=== PATIENT | female | born 1940 | race Caucasian/White ===

== ENCOUNTER 2023-04-06 05:52 | Inpatient (IN) | payer MEDICARE, OTHER, SELFPAY ==
[2023-04-05 21:42] VITALS: BP 150/83; BMI 23.5
[2023-04-05 22:02] LABS: % Basophils 0.1 % (0-2); % Immature Granulocytes 1.2 % (0-0.5); % Lymphocytes 4.4 % (20.5-51.1); % Neutrophils 91.3 % (42.2-75.2); Absolute Immature Granulocytes 0.2 10^3/uL (0-0.05); Absolute Lymphocytes 0.8 10^3/uL (1.2-3.4); Absolute Monocytes 0.5 10^3/uL (0.1-0.6); Hematocrit 34.6 % (37.0-47.0); Hemoglobin 11.8 g/dL (12.0-16.0); Mean Corp Hgb Conc. 34.1 g/dL (33.0-37.0); Mean Corpuscular Hgb 32.5 pg (27.0-31.0); Mean Corpuscular Volume 95.3 fL (81.0-99.0); Mean Platelet Volume 10.8 fL (7.4-10.4); Nucleated Red Blood Cells % 0 %; Platelet Count 249 10^3/uL (130-400); Red Blood Cell Count 3.63 10^6/uL (4.20-5.40); Red Cell Dist. Width 16.5 % (11.5-14.5); White Blood Cell Count 17.6 10^3/uL (4.8-10.8)
[2023-04-05 22:27] LABS: Blood Urea Nitrogen 81 mg/dl (7-17); Calcium 9.3 mg/dl (8.4-10.2); Carbon Dioxide 39 mmol/L (22-30); Chloride 84 mmol/L (98-107); Estimated Creatinine Clearance 17 ml/min; Glucose 234 mg/dl (70-99); Sodium 131 mmol/L (135-145); eGFR 27.27
--- NOTE | 2023-04-05 23:58 | ED.GENMED ---
History of Present Illness
General
Chief Complaint: Chest Pain
Source: patient and family
Time Seen by Provider: 04/05/23 23:19
Travel History
Have you had any contact with someone who has COVID-19?: No
Do you have any symptoms of coronavirus? Fever > 100 degrees, chills, cough, shortness of breath, sore throat, loss of taste or smell, muscle aches, or headache?: No
History of Present Illness
History of Present Illness:
This patient is an 83-year-old female who celebrated her birthday yesterday, says it was a busy day and was with a lot of friends and family. She woke up this morning feeling more tired than usual and just generally weak without focal findings.
Then, while with her daughter at around 7 PM she developed a 'pressure' in the center of her chest without radiation. It was not pleuritic in nature. It was severe for a few seconds and then gradually diminished over 5 to 10 minutes. She got
several more episodes of the same discomfort. At 1 point she was given nitroglycerin which helped ease the discomfort. In between episodes she is pain-free. She most recently got an episode of this short-lived chest discomfort just a few minutes
ago. She also notes mild anorexia today without nausea, vomiting, new abdominal pain, fever, chills, cough, sore throat, rhinorrhea. Patient is O2 dependent but she feels like she has been more dyspneic today than usual.
Past History
Past History
ED Past Medical History: Arrthythmia (Fibrillation), CAD, Fibromyalgia, GERD, HTN, Hypercholesterolemia, Psychiatric (Depression, Panic disorder) and Other (History of back pain, migraines, diverticulitis, irritable bowel, loss of urination control,
arthritis, osteoporosis, impaired vision, rosacea, shingles, cataracts, Hiatel hernia)
ED Past Surgical History: Appendectomy (Questionable as patient unsure), Cardiac (Recent coronary stent X5), Gynecological (D&C, hysterectomy), Tonsilectomy and Other (Hernia repair)
Social History
Tobacco: Non-smoker
Alcohol: None
Drug: None
Personal:
Living: alone
Employment: Retired
Family History
Family History: CAD
Phy Exam
Physical Exam
Physical Exam:
GENERAL: Alert , in no apparent distress
EYE: pupils equal and reactive
NECK: Supple, no significant adenopathy.
ENT: o/p clr, mm slightly dry, questionable oral thrush noted.
CARDIAC: Irregularly irregular
LUNGS: Equal breath sounds bilaterally, no acute respiratory distress, no rales/rhonchi, very slight wheezing noted
ABDOMEN: Soft, nonspecific diffuse mild tenderness, no r/g, no cvat
NEUROLOGICAL: Alert and oriented, no focal neuro deficits
SKIN: Warm and dry, skin intact. There is scattered aged bruising noted on back area without assoc sts or ttp
MUSCULOSKELETAL: No edema, well perfused.
PSYCH: Normal and appropriate interaction.
Scores
Heart Score for Chest Pain Patients
STEMI patient?: Not applicable
Course
Orders/Labs/Results
Orders:
Orders
04/05/23 21:41
Electrocardiogram (*1) Urgent
Reason for Study: Chest Pain
EKG- Treatment ONCE
04/05/23 21:56
Basic Metabolic Panel Urgent
Complete Blood Count/With Diff Urgent
04/05/23 23:57
UA Reflex to Culture [Urinalysis Reflex To Culture] Stat
Date Specimen was Collected: 04/06/23
Time Specimen was Collected: 00:19
04/05/23 23:59
BNP [NT-proBNP] Stat
Iohexol [Omnipaque] See Protocol PO NOW STA
04/06/23 00:01
CR Chest - 2 Views Stat
Reason For Exam: sob
04/06/23 00:26
Urine Microscopic Reflex Cult Stat
Urine Culture Stat
THI Source: U
Specimen Description:
Date Specimen was Collected: 04/06/23
Time Specimen was Collected: 00:19
04/06/23 00:49
CT Abd/pel Without Iv Or Oral Stat
Comment:
Reason For Exam: abd pain
04/06/23 01:59
CT Chest W/o Iv Contrast Urgent
Comment:
Reason For Exam: chest pain
04/06/23 02:00
0.9% Sodium Chloride 500 ml [Nss] 500 ml IV 80 mls/hr
04/06/23 05:06
Admit/Transfer Patient As Directed
Co-Sign Provider:
Level of Care: Inpatient admission
Assign to:: IMU- Intermediate Care
Physician / Group: Donald
Diagnosis: Pneumomediastinum
Reason for Hospitalization: Pneumomediastinum
Expected length of stay greater than two midnights?: Yes
ELOS- Estimated Length of Stay in days: 2
I certify the patient meets the requirements for IP care: Yes
04/06/23 05:09
Code Status As Directed
Resuscitation Status: Full Code
04/06/23 06:17
Acetaminophen [Tylenol] 650 mg PO Q6HPRN PRN
Albuterol Nebs [Ventolin Nebules] 2.5 mg INH R Q4HPRN PRN
Dextrose 50%-Water [Dextrose 50% Syringe] 12.5 grams IV [id number] PRN
Glucagon [GlucaGen] 1 mg IM PRN PRN
Nitroglycerin Sublingual [Nitrostat (Sublingual)] 0.4 mg SL [id number] PRN
Ondansetron Injectable [Zofran] 4 mg IV Q6HPRN PRN
04/06/23 06:17
Cardiothoracic Surgery Consult Routine
Consulting Provider: Christofer Cabrera
Was physician already notified: No
Reason for Consult: Pneumomediastinum
Consult Notification Routine
Specialty to Notify: Cardiothoracic Surgery
Date consulting provider notified: 04/06/23
Time consulting provider notified: 07:21
Notified:: Provider
Consult Notification Routine
Specialty to Notify: Pulmonary
Date consulting provider notified: 04/06/23
Time consulting provider notified: 07:21
Notified:: Provider
PULMONARY CONSULT Routine
Consulting Provider: Aureliano Beltran
Was physician already notified: No
Reason for consult: Pneumomediastinum
Activity As Directed
Activity Level: Ambulate
With Assistance
Bedside Glucose Monitoring As Directed
Frequency: AC&HS
Comment: Change to q6h if pt on TPN, tube feeding or not eating
EKG with chest pain [ECG as needed] As Directed
ECG as needed for:: Chest Pain
I/O [Intake/ Output] As Directed
Frequency: Per unit guidelines
Pneumatic Compression Sleeves As Directed
Type: Knee high
Vital Signs As Directed
Frequency: Per unit guidelines
Weight As Directed
Frequency: Daily
Oxygen Therapy [O2 Therapy] [RESP] Routine
Titrate/Wean O2 to maintain O2 sat greater than (%): 94
Ot Eval And Treat Routine
PT Consult [Pt Eval And Treat] Routine
Activity Level: Ambulate
With Assistance
DX Deep Vein Thrombosis Video Routine
04/06/23 06:36
Troponin I Q6H
04/06/23 07:30
Insulin Aspart Corrective Low [Novolog Flexpen-Low Resistance] See Protocol SC AC
04/06/23 08:00
Aspirin Chewable [Low Strength Aspirin] 81 mg PO DAILY
Metoprolol Xl [Toprol Xl] 25 mg PO DAILY
Midodrine [ProAmatine] 5 mg PO Q8
Pantoprazole [Protonix IV] 40 mg IV DAILY
Prednisone [Deltasone] 40 mg PO DAILY
04/06/23 12:17
Troponin I Q6H
04/06/23 18:17
Troponin I Q6H
04/07/23 06:00
EKG [Electrocardiogram (*1)] IN AM
Reason for Study: Chest Pain
NPO
Allow oral meds: Yes
Allow clear liquids: Sips of Clears
Basic Metabolic Panel IN AM
Complete Blood Count/No Diff IN AM
Abnormal Lab Results
04/05/23 04/06/23
21:56 00:26
WBC 17.6 H 10^3/uL
(4.8-10.8)
RBC 3.63 L 10^6/uL
(4.20-5.40)
Hgb 11.8 L g/dL
(12.0-16.0)
Hct 34.6 L %
(37.0-47.0)
MCH 32.5 H pg
(27.0-31.0)
RDW 16.5 H %
(11.5-14.5)
MPV 10.8 H fL
(7.4-10.4)
Abs Immat Gran (auto) 0.2 H 10^3/uL
(0-0.05)
Absolute Neuts (auto) 16.0 H 10^3/uL
(1.4-6.5)
Absolute Lymphs (auto) 0.8 L 10^3/uL
(1.2-3.4)
Immature Gran % 1.2 H %
(0-0.5)
Neutrophils % 91.3 H %
(42.2-75.2)
Lymphocytes % 4.4 L %
(20.5-51.1)
Sodium 131 L mmol/L
(135-145)
Chloride 84 L mmol/L
(98-107)
Carbon Dioxide 39 H mmol/L
(22-30)
BUN 81 H mg/dl
(7-17)
Creatinine 1.8 H mg/dL
(0.6-1.0)
Glucose 234 H mg/dl
(70-99)
Leukocyte Esterase Rfl 1+ A
(Negative)
Urine WBC (Reflex) >100 A /HPF
(0-5)
Urine Bacteria (Reflex) Many A
(Negative)
04/05/23 21:56
04/05/23 21:56
Vital Signs
Initial and Last Documented VS:
Initial Vital Signs
Pulse Resp BP Pulse Ox
100 22 150/83 100
04/05/23 21:42 04/05/23 21:42 04/05/23 21:42 04/05/23 21:42
Last Documented Vital Signs
Temp Pulse Resp BP Pulse Ox
97.9 F 75 15 112/54 100
04/06/23 07:25 04/06/23 09:04 04/06/23 08:27 04/06/23 09:04 04/06/23 08:27
*Critical Care Note
Total Time (30-74mins, 75-104mins- exclusive of procedures): Not Applicable
Update Note
Update Note:
Patient presents to the Emergency Department with chest pain
Number and Complexity of Problems Addressed at the Encounter
� Chronic conditions affecting care:
� Acute Exacerbation and/or Progression of Chronic Illness:
� Differential Diagnosis includes: But not limited to ACS, pneumonia, heart failure, etc.
Amount and/or Complexity of Data to be Reviewed and Analyzed
� I performed an independent evaluation of and my interpretation is:
EKG: Read by me, A-fib with RVR, no acute ischemia noted
CT:
Xrays:
Laboratory Studies: White blood cell count elevation noted, relatively unchanged from her hospitalization just a few days ago suspect related to steroid. Relatively stable hyponatremia however new onset renal insufficiency with
a creatinine of 1.8 and GFR of 27, may represent prerenal azotemia given patient's history of anorexia today and as per daughter poor p.o. intake overall 4 weeks. Hemoglobin stable
Other:
� Review of other/old records reveals: Patient most recently hospitalized for respiratory distress requiring intubation
� Clinical information was obtained by an independent historian: Daughter who is at bedside
� Prescriptions/Medications Considered but not given:
� Further testing considered but not performed:
Risk of Complications and/or Morbidity or Mortality of Patient Management
� Social determinants of health affecting care:
� Discussion with other providers (PCP, Hospitalists, Consultants, etc):
� Escalation of care including admission/observation vs risk of discharge considered:108AM Ct pending, will start gentle IVF suspecting dehydration but balancing with hx of hf
159am verbal report, [facility] rads...nad in abd however pneumomediastinum noted, recommend chest ct to further evaluate.
Chest CT c/w pnuemomediast, no ptx, tr R pleural effusion, no concern for esophageal rupture (and no hx of v recently), likley all related to barotrauma (which is likley given recent intubation). Lungs overall look improved from prior CT.
Pt resp status stable, will admit for continued care.
ED Attending Note
-
Portions of this chart may have been created with voice recognition software.� Occasional wrong word or��sound alike� substitutions may have occurred due to the inherent limitations of voice recognition software.
Discharge Plan
Departure
Patient Disposition: Admit
Date of Disposition: 04/06/23
Time of Disposition: 03:00
Admit to: Telemetry
Admit to doctor: donald
Presentation/result/management discussed w/ accepting MD/DO: Hospitalist
Condition: Fair
Discharge Problem:
Acute renal insufficiency, PNEUMOMEDIASTINUM
Interventions
Interventions:
*Risk Screen - Suicide Last Done: 04/05/23 21:44
*Neglect/Abuse Screening Last Done: 04/05/23 21:44
*ED COVID-19 Vaccine History Last Done: 04/05/23 21:44
*Nursing Disposition Last Done: 04/06/23 06:19
ED- Cardiac Assessment Last Done: 04/05/23 22:31
Discharge Date and Time
Discharge Date/Time: 04/06/23 06:19
[2023-04-06] VITALS (17 sets, daily range): BP systolic 106–138; BP diastolic 53–102; BMI 23.2
[2023-04-06 00:37] LABS: Urine Albumin Trace (Neg - Trace); Urine Bilirubin Negative (Negative); Urine Character Clear (Clear); Urine Color Yellow; Urine Glucose Negative (Negative); Urine Ketone Negative (Negative); Urine Leukocyte 1+ (Negative); Urine Nitrite Negative (Negative); Urine Occult Blood Negative (Negative); Urine Specific Gravity 1.015 (<1.030); Urine Urobilinogen Negative (Neg - 1+)
[2023-04-06 01:00] LABS: Urine Amorphous Seen; Urine Squamous Cell >30 /LPF (Few); Urine Urothelial Cell >30 /LPF (FEW)
[2023-04-06 01:01] LABS: Urine Bacteria Many (Negative); Urine Red Blood Cell 0-2 /HPF (0-2); Urine White Cell >100 /HPF (0-5)
[2023-04-06 01:02] LABS: Urine Hyaline Cast >15 /LPF (0-2)
[2023-04-06] MEDS: NSS 500 IV (01:18)
[2023-04-06 01:42] LABS: NT-proBNP 5900 pg/ml
--- NOTE | 2023-04-06 05:13 | HPS.HSE ---
Family Physician
-
Family Physician: Sky Hackett
Chief Complaint
-
Chest pain
History of Present Illness
Patient is an 83y F with PMH significant for A-Fib, ASCVD, ILD and recent hospitalization for respiratory failure including VDRF who presents to ED complaining of chest pain. Patient was admitted at from 02/27 - 03/30 for respiratory failure.
She was intubated from 03/05 - 03/11. Patient was ultimately discharged to SNF on oxygen via NC at 2 lpm. Patient states that she has been doing fairly well in her recovery. Two days ago, she had some brief substernal chest pain that improved with
SL NTG.
This evening, she again developed substernal chest pain / pressure. It was much more severe this evening and did not improve with NTG. Patient reports inability to take a deep breath. She denies any fevers / chills. No palpitations.
Patient presented to the ED for evaluation. Work-up here in the ED shows significant amount of pneumomediastinum / pneumoperitoneum.
Patient denies any recent / significant cough paroxysms, etc. She was started on Tamiflu at the rehab, but this is a prophylactic dose due to other patient's having influenza. Patient herself has not tested positive for influenza and does not have
significant cough, fevers / chills, myalgias, etc.
Medical History
Past Medical History
Past Medical History: Reports Other
Additional Past Medical History:
ILD / Bronchiectasis / Pulmonary Fibrosis
Recent VDRF (03/05 - 03/11)
Chronic HFpEF
Aortic Stenosis
Hypertension
ASCVD
Paroxysmal Atrial Fibrillation
GI Bleeding / Duodenal Ectasias
GERD
Fibromyalgia
Iron Deficiency Anemia
KILEY
Past Surgical History: Reports Other
Additional Past Surgical History:
PTCA with Stents
AMY
D&C
Appendectomy
T&A
Hernia Repair
Social History
Tobacco: Non-smoker
Alcohol: None
Drug: None
Family History
Family History: Not pertinent
Allergies / Home Medications
Allergies reflects when Allergies were last updated in [facility].
Home Medications with original date entered in [facility]
Allergy/Medication List:
Allergies
Allergy/AdvReac Type Severity Reaction Status Date / Time
codeine [Codeine] Allergy Rash Verified 01/16/23 07:53
ethyl alcohol Allergy CHEMICAL Verified 01/16/23 07:53
SENSITIVITY
formaldehyde Allergy chemical Verified 01/16/23 07:53
sensitivity-
allergy
attack,
dry eyes,
wheezing
glycerin Allergy CHEMICAL Verified 01/16/23 07:53
SENSITIVITY
guaifenesin [From Mucinex] Allergy Hives Verified 01/16/23 07:53
Iodinated Contrast Media Allergy Rash/hives Verified 01/16/23 07:53
[Iodinated Contrast Media -
IV Dye]
morphine Allergy DECREASED Verified 01/16/23 07:53
HR
oxycodone HCl [From Percocet] Allergy Hives Verified 01/16/23 07:53
Sulfa (Sulfonamide Allergy throat Verified 01/16/23 07:53
Antibiotics) closes
muscle relaxers Allergy Hyper/tired Uncoded 01/16/23 07:53
seasonal Allergy nasal Uncoded 01/16/23 07:53
congestion/wheeze
Home Medications
nitroglycerin 0.4 mg sublingual tablet 0.4 mg sublingual [id number] PRN chest pain 08/01/13
cholecalciferol (vitamin D3) 50 mcg (2,000 unit) tablet 2,000 units PO DAILY Supplement 07/06/20
clopidogrel 75 mg tablet 75 mg PO DAILY CAD 12/22/22
ferrous sulfate 325 mg (65 mg iron) tablet 325 mg PO DAILY Supplement 12/22/22
acetaminophen 325 mg tablet 650 mg PO Q6HPRN PRN mild pain 01/16/23
apixaban 5 mg tablet 5 mg PO BID Blood Clot Prevention/Tx 01/16/23
calcium carbonate 500 mg-vitamin D3 5 mcg (200 unit) tablet 1 tab PO BID Supplement 01/16/23
furosemide 40 mg tablet 40 mg PO BID Fluid Retention/Swelling #0 tabs 03/30/23
insulin aspart U-100 100 unit/mL (3 mL) subcutaneous pen (Novolog FlexPen U-100 Insulin aspart) 5 unit (0.05 mL) SC AC #15 mL 03/30/23
metoprolol succinate 25 mg tablet,extended release 24 hr 25 mg PO DAILY #30 tabs 03/30/23
midodrine 5 mg tablet 5 mg PO Q8 #90 tabs 03/30/23
Lactobac no.2-Bifidobac no.1-S. thermo 112.5 billion cell capsule (Visbiome) 1 cap PO DAILY 04/05/23
insulin glargine-yfgn 100 unit/mL subcutaneous solution 12 unit SC QPM 04/05/23
magnesium hydroxide 400 mg/5 mL oral suspension (Milk of Magnesia) 2,400 mg PO HSPRN PRN if no bm by 3rd day 04/05/23
oseltamivir 75 mg capsule (Tamiflu) 75 mg PO DAILY 04/05/23
pantoprazole 40 mg tablet,delayed release (Protonix) 40 mg PO DAILY 04/05/23
prednisone 10 mg tablet 40 mg PO UD 04/05/23
Review of Systems
-
History Source: Patient
A 12 point ROS was completed and negative except as noted: Yes
Constitutional: Denies Fever or Chills
EENT: Denies Sore Throat
Respiratory: Reports Trouble Breathing; Denies Cough or Hemoptysis
Cardiac: Reports Chest Pain; Denies Diaphoresis or Palpitations
Abdomen/GI: Denies Abdominal Pain, Nausea, Vomiting or Diarrhea
: Denies Dysuria or Frequency
Musculoskeletal: Denies Joint Pain or Edema
Neurological: Denies Dizzy or Headache
Psych: Denies Depression or Anxiety
Physical Exam
Vital Signs
Vital Signs
Temp Pulse Resp BP Pulse Ox
98.3 F 79 16 106/55 100
04/05/23 21:49 04/06/23 04:00 04/06/23 04:00 04/06/23 04:00 04/06/23 04:00
Physical Exam
General: Other (83y F in no acute distress at present.)
HEENT: Moist mucous membranes and PERRLA
Respiratory: Other (Few scattered rales throughout. No wheezing. )
Cardiac: S1/S2, Irregular Rhythm and Murmur (II/ BRAD)
GI: Soft, Non Tender, Non Distended and Normal Bowel Sounds
Musculoskeletal: No Clubbing, No Cyanosis and Other (1+ pitting edema b/l ankles)
Neuro: AO x 3
Laboratory Results
-
04/05/23 21:56
04/05/23 21:56
Laboratory Results
Total Bilirubin Cancelled 04/05/23 21:56
AST Cancelled 04/05/23 21:56
ALT Cancelled 04/05/23 21:56
Alkaline Phosphatase Cancelled 04/05/23 21:56
Impression/Plan
-
A/P: Patient is an 83y F with PMH significant for ILD / pulm fibrosis, ASCVD, A-Fib and recent hospitalization for respiratory failure including intubation / ventilation who presents to ED from SNF complaining of chest pain.
Chest Pain
Pneumomediastinum / Pneumoperitoneum
- Admit for further evaluation and treatment.
- Patient s/p recent mechanical ventilation (03/05/23 - 03/11/23).
- Note CT scan done 03/18 that showed no evidence of significant pneumomediastinum at that time.
- Patient denies significant paroxysms of coughing recently.
- No fall / injury / trauma.
- Pain free at present - follow for any new / recurrent symptoms.
- Supportive care with pain control as able, supplemental O2 support, etc.
- Pulmonary evaluation.
- CT Surgery evaluation - though suspect treatment will remain supportive.
- Follow for any new / worsening symptoms.
ILD / Pulmonary Fibrosis / Bronchiectasis
Chronic Hypoxemic Respiratory Failure
- Patient discharged on 2 lpm of supplemental O2.
- Continues with adequate oxygenation on this rate.
- No new fevers / chills, increased cough, etc.
- Continue current prednisone dosing / taper.
- Pulm evaluation as noted above.
Chronic HFpEF
- Stable. No evidence of significant hypervolemia on exam.
- Hold Lasix acutely and follow I/Os, daily weights, etc.
- Restart usual diuretic regimen when appropriate.
- Weight today decreased from discharge.
GURPREET
- SCr = 1.8 compared to prior baseline of 0.9.
- Suspect hypovolemia due to diuretic dosing given decrease in weight, etc.
- Hold diuretics acutely as noted above.
- IVFs given in the ED.
- Follow renal function for improvement / return to baseline.
- Resume diuretics if / when appropriate.
Paroxysmal Atrial Fibrillation
- Stable. Continue metoprolol for rate control.
- Hold Eliquis acutely in the vent that invasive procedure / intervention is required.
ASCVD
- No new EKG changes concerning for active ischemia.
- Chest pain seems clearly related to newly appreciated pneumomediastinum.
- Follow serial troponin and monitor for any new/ worsening symptoms.
- Continue CV med regimen.
- Change Plavix to ASA acutely in the event that any invasive procedure is needed.
Hypotension
- Stable at present. Continue midodrine with holding parameters.
GERD / Duodenal Ectasia
- Stable. No evidence of recurrent bleeding.
- s/p cautery 12/2022.
- Continue PPI - especially while on PO steroids.
DM-II, Steroid-Induced
- Stable. Continue basal insulin.
- Follow glucose and cover with SSI as needed.
- Recent A1C was 5.5%.
DVT Prophylaxis: SCDs while Eliquis on hold.
Code Status: Full
--- NOTE | 2023-04-06 06:43 | TRANSFER ---
Received pt from the ER via stretcher. She arrived awake and alert and oriented x 3. She has no complaints. She has a pressure ulcer on her sacral/anal area. adaptic and silicone dressing applied. she knows to sleep off her back to help with
healing. Skin is warm and dry and pt's heart monitor shows Atrial fibrillation with a controlled ventricular response.
[2023-04-06 07:23] LABS: Troponin I 0.102 ng/ml
--- NOTE | 2023-04-06 08:22 | PTCARENOTE ---
Pt rec'd to IMU at change of shift for night RN, handoff rec'd, trop result 0.[address] Hdez. Will review chart and discuss plan of care upon rounds. Pt resting in bed, AOx3 pleasant and cooperative, no c/o pain, sat 100%
on 2L which is improvement upon her baseline of 3L. Will cont to monitor.
[2023-04-06 08:52] LABS: Glucose - Point of Care 91 mg/dl (70-99)
[2023-04-06] MEDS: ProAmatine 5 MG PO (09:04)
[2023-04-06] MEDS: LOW STRENGTH ASPIRIN 81 MG PO (09:04)
[2023-04-06] MEDS: TOPROL XL 25 MG PO (09:04)
[2023-04-06] MEDS: DELTASONE 40 MG PO (09:05)
[2023-04-06] MEDS: PROTONIX IV 40 MG IV (09:05)
[2023-04-06] MEDS: NSS (PRESERVATIVE FREE) 10 ML IV (09:05)
--- NOTE | 2023-04-06 09:24 | PTCARENOTE ---
Per Dr. Hdez, hold off on IVF until he sees patient.
--- NOTE | 2023-04-06 09:27 | CON.CAR ---
Consultation
Consultation Request
Date/Time Consultation Requested: 04/06/23
Date/Time Consultation Performed: 04/06/23
Requesting Provider: Dr. Hdez
Performing Provider: Dr. Santillan
Reason for Consultation: Chest Pain
Medical History
-
Chief Complaint: Chest Pain
History of Present Illness:
82-year-old female (known to Dr. Mandel, her primary Regulator Operator) with MVCAD (most recent PCI mLAD 11/11/2022; currently on Plavix), paroxysmal atrial fibrillation (currently on apixaban), moderate aortic stenosis, HFpEF, hypertension, dyslipidemia
(statin intolerant), and pulmonary fibrosis/ILD/bronchiectasis admitted with chest pain; found to have pneumomediastinum of unclear etiology. She states that the chest pain has been happening over the past 2 days. She denies any significant
shortness of breath. Her creatinine was found to be elevated at 1.8 this admission; she was recently discharged from the hospital on a higher dose of Lasix 40 mg twice daily.
Past Medical History
Past Medical History: Arrhythmias (PAF ), CAD, CHF (HFpEF), Hypercholesterolemia and Valvular Disease ()
Past Surgical History: Cardiac (PCI)
Social History
Tobacco: Non-Smoker
Alcohol: None
Drug: None
Living: Assisted Living
Employment: Retired
Family History
Family History: Reviewed & Not Pertinent
Allergies / Home Medications
Allergy/AdvReac Type Severity Reaction Status Date / Time
codeine [Codeine] Allergy Rash Verified 01/16/23 07:53
ethyl alcohol Allergy CHEMICAL Verified 01/16/23 07:53
SENSITIVITY
formaldehyde Allergy chemical Verified 01/16/23 07:53
sensitivity-
allergy
attack,
dry eyes,
wheezing
glycerin Allergy CHEMICAL Verified 01/16/23 07:53
SENSITIVITY
guaifenesin [From Mucinex] Allergy Hives Verified 01/16/23 07:53
Iodinated Contrast Media Allergy Rash/hives Verified 01/16/23 07:53
[Iodinated Contrast Media -
IV Dye]
morphine Allergy DECREASED Verified 01/16/23 07:53
HR
oxycodone HCl [From Percocet] Allergy Hives Verified 01/16/23 07:53
Sulfa (Sulfonamide Allergy throat Verified 01/16/23 07:53
Antibiotics) closes
muscle relaxers Allergy Hyper/tired Uncoded 01/16/23 07:53
seasonal Allergy nasal Uncoded 01/16/23 07:53
congestion/wheeze
Medication Instructions Recorded Confirmed Type
nitroglycerin 0.4 mg sublingual 0.4 mg sublingual [id number] PRN 08/01/13 04/05/23 History
tablet chest pain
cholecalciferol (vitamin D3) 50 2,000 units PO DAILY Supplement 07/06/20 04/05/23 History
mcg (2,000 unit) tablet
clopidogrel 75 mg tablet 75 mg PO DAILY CAD 12/22/22 04/05/23 History
ferrous sulfate 325 mg (65 mg 325 mg PO DAILY Supplement 12/22/22 04/05/23 History
iron) tablet
acetaminophen 325 mg tablet 650 mg PO Q6HPRN PRN mild pain 01/16/23 04/05/23 History
apixaban 5 mg tablet 5 mg PO BID Blood Clot 01/16/23 04/05/23 History
Prevention/Tx
calcium carbonate 500 mg-vitamin 1 tab PO BID Supplement 01/16/23 04/05/23 History
D3 5 mcg (200 unit) tablet
furosemide 40 mg tablet 40 mg PO BID Fluid 03/30/23 04/05/23 Rx
Retention/Swelling #0 tabs
insulin aspart U-100 100 unit/mL 5 unit (0.05 mL) SC AC #15 mL 03/30/23 04/05/23 Rx
(3 mL) subcutaneous pen (Novolog
FlexPen U-100 Insulin aspart)
metoprolol succinate 25 mg 25 mg PO DAILY #30 tabs 03/30/23 04/05/23 Rx
tablet,extended release 24 hr
midodrine 5 mg tablet 5 mg PO Q8 #90 tabs 03/30/23 04/05/23 Rx
Lactobac no.2-Bifidobac no.1-S. 1 cap PO DAILY 04/05/23 04/05/23 History
thermo 112.5 billion cell capsule
(Visbiome)
insulin glargine-yfgn 100 unit/mL 12 unit SC QPM 04/05/23 04/05/23 History
subcutaneous solution
magnesium hydroxide 400 mg/5 mL 2,400 mg PO HSPRN PRN if no bm by 04/05/23 04/05/23 History
oral suspension (Milk of Magnesia) 3rd day
oseltamivir 75 mg capsule (Tamiflu) 75 mg PO DAILY 04/05/23 04/05/23 History
pantoprazole 40 mg tablet,delayed 40 mg PO DAILY 04/05/23 04/05/23 History
release (Protonix)
prednisone 10 mg tablet 40 mg PO UD 04/05/23 04/05/23 History
Review of Systems
-
History Source: Patient
All other systems: Negative unless noted
Physical Exam
Vital Signs
Temp Pulse Resp BP Pulse Ox
98.3 F 75 15 112/54 100
04/05/23 21:49 04/06/23 09:04 04/06/23 08:27 04/06/23 09:04 04/06/23 08:27
Lab Results
04/05/23 21:56
04/05/23 21:56
Troponin I 0.102 ng/ml H* 04/06/23 06:36
Dlo-O-Ugvuyazphfe Pept 5900 pg/ml 04/06/23 01:00
Physical Exam
General: No Apparent Distress and Comfortable
HEENT: Normocephalic
Respiratory: Clear
Cardiac: S1/S2, Regular Rhythm, Murmur (1/6 BRAD) and Peripheral Edema (trace)
Breast: Deferred by me
GI: Soft
Rectal: Deferred by Provider
Musculoskeletal: No Clubbing, No Cyanosis and Edema (1+)
Skin: Warm and Dry
Neuro: AO x 3
Psych: Calm
Impression / Plan
-
Chest pain:
- Non-cardiac chest pain; secondary to musculoskeletal etiology/pneumomediastinum/pneumoperitoneum--sharp, intense reproducible chest pain on examination.
- Minimal troponin elevation is secondary to acute nonischemic myocardial injury secondary to underlying medical condition and GURPREET.
- Patient s/p recent mechanical ventilation (03/05/23 - 03/11/23).
- CT scan done 03/18/23 showed no evidence of significant pneumomediastinum at that time.
- Patient states that she has been doing significant exertion in terms of PT at her rehab facility.
- Results of CT chest and abdomen pending.
- Management as per primary team; CT Surgery has been consulted--can proceed with any procedures deemed necessary from a cardiac standpoint.
Chronic HFpEF
-Patient with GURPREET; likely secondary to overdiuresis.
-Transthoracic echocardiogram on 03/05/2023 revealed normal biventricular function (LVEF 60-65%), moderate AAS, mild to moderate MR/TR, PAP 51 mmHg.
-Hold Lasix for now (GURPREET).
-Resume Lasix upon discharge at a lower dose of 40 mg once daily.
CAD:
- Multiple stents, most recent 11/11/2022 (mLAD).
- Appears to be stable.
- Resume Plavix if patient is not undergoing any procedures.
- Plan is to de-escalate to single agent NOAC at six months - early if bleeding becomes significant.
Paroxysmal atrial fibrillation => cardioversion Nov 2022
-Was previously on amiodarone, which was discontinued in February 2023.
-She had APC to bleeding ectasia in duodenum 12/17/2022, no further bleeding
-[id number]: Score at least 6 (Heart failure, HTN, age 75 or more, Vascular disease, female gender)
-Continue current dose of Toprol-XL.
-Resume Eliquis if patient is not undergoing any procedures.
Aortic stenosis:
-Moderate; stable.
Dyslipidemia, statin intolerant, consider PCSK9 when she follows up in the office.
Bronchiectasis/ILD/eosinophilia, managed by Dr. Adame.
KILEY, on CPAP.
Prior COVID-19 infection, 12/28/2022.
Disposition: Cardiology will remain available on an as-needed basis; please call back if further assistance needed.
Data Reviewed
-
EKG: Report Reviewed by me (Atrial fibrillation)
Radiology: Report Reviewed by me (Chest x-ray, CT chest, CT abdomen/pelvis (images reviewed; reports pending))
CT Scan: Image Personally Visualized and interpreted (Chest x-ray, CT chest, CT abdomen/pelvis (images reviewed; reports pending))
Labs: Labs Reviewed by me
Old Records: Reviewed (Prior hospitalizations and outpatient Cardiology office visit)
--- NOTE | 2023-04-06 09:41 | CONSULT.CT ---
Consultation
-
Date/Time Consultation Requested: 04/06/23
Date/Time Consultation Performed: 04/06/23 0945
Requesting Provider: Fernando Aceves MD.
Performing Provider: Ashley Burns PA-C on behalf of Dr. Efrain Argueta MD.
Reason for Consultation: Pneumomediastinum
Patient History
Physicians
Family Physician: Dr. Arcelia Pacheco MD.
Outpatient Wrapping Machine Operator: Dr. Walt Mandel MD.
Inpatient Wrapping Machine Operator: Dr. Walt Santillan MD.
History of Present Illness
Patient is an 83-year-old female with significant PMH (see below) who was recently hospitalized at [facility] from 02/27/23-03/30/23. During this hospitalization patient was intubated from 03/05/2303/11/2023 for respiratory
failure and eventually VDRF. She was discharged to [facility] on 03/30/23 on 2 L of oxygen via nasal cannula.
Patient was doing well up until about 2 days ago. She reported brief episodes of intermittent chest pain. Chest pain continued, and yesterday evening around 8:00 became severe. She describes it as a stabbing pain that took her breath away. She
was taken back to [facility]'s emergency department where she underwent further workup. Patient had a dry CT of the chest abdomen and pelvis without IV or oral contrast. Result has not yet been finalized by radiology, however, CT of the
chest reveals a pneumomediastinum. CT surgery was consulted.
Further lab workup upon arrival to the ED reveals a WBC of 17.6, Afebrile. Hemoglobin of 11.8. Patient is on chronic therapy with Plavix and Eliquis secondary to CAD with ANGIE and paroxysmal A-fib. These agents have been held. INR was noted to
be 2.26. Patient was also found to be in GURPREET with a BUN and creatinine of 81 and 1.8. UA also revealed many bacteria with greater than 30 squamous epithelial cells, culture currently pending.
In discussion with the patient, she denies any significant episodes of coughing fits, and vomiting/retching.
Past Medical History
Past Medical History: Other
ILD / Bronchiectasis / Pulmonary Fibrosis
acute hypoxic respiratory failure/Recent VDRF (03/05 - 03/11)
Chronic HFpEF
Aortic Stenosis
Hypertension
ASCVD s/p PCI/ANGIE on chronic therapy with Plavix
Paroxysmal Atrial Fibrillation on chronic OAC w/ Eliquis
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
GI Bleeding / Duodenal Ectasias
GERD
Fibromyalgia
Iron Deficiency Anemia
KILEY
Past Surgical History
Past Surgical History: Other
PTCA with Stents
AMY
D&C
Appendectomy
T&A
Hernia Repair
Dental History
Noncontributory
Family History
Mother: at Age (93) and Cause of (Complications with respiratory failure and heart failure)
Father: at Age (70) and Cause of (Myocardial infarction)
Family Medical History: Aneurysm (Father also with AAA) and CAD (Father with NC)
Social History
Alcohol: None
Drug: None
Tobacco: Non-Smoker
Personal:
Living: Other (Lives with daughter, however has been residing at [facility] since discharge on 03/30/23)
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
Allergies
Allergy/AdvReac Type Severity Reaction Status Date / Time
codeine [Codeine] Allergy Rash Verified 01/16/23 07:53
ethyl alcohol Allergy CHEMICAL Verified 01/16/23 07:53
SENSITIVITY
formaldehyde Allergy chemical Verified 01/16/23 07:53
sensitivity-
allergy
attack,
dry eyes,
wheezing
glycerin Allergy CHEMICAL Verified 01/16/23 07:53
SENSITIVITY
guaifenesin [From Mucinex] Allergy Hives Verified 01/16/23 07:53
Iodinated Contrast Media Allergy Rash/hives Verified 01/16/23 07:53
[Iodinated Contrast Media -
IV Dye]
morphine Allergy DECREASED Verified 01/16/23 07:53
HR
oxycodone HCl [From Percocet] Allergy Hives Verified 01/16/23 07:53
Sulfa (Sulfonamide Allergy throat Verified 01/16/23 07:53
Antibiotics) closes
muscle relaxers Allergy Hyper/tired Uncoded 01/16/23 07:53
seasonal Allergy nasal Uncoded 01/16/23 07:53
congestion/wheeze
Home Medications
Medication Instructions Recorded Confirmed Type
nitroglycerin 0.4 mg sublingual 0.4 mg sublingual [id number] PRN 08/01/13 04/05/23 History
tablet chest pain
cholecalciferol (vitamin D3) 50 2,000 units PO DAILY Supplement 07/06/20 04/05/23 History
mcg (2,000 unit) tablet
clopidogrel 75 mg tablet 75 mg PO DAILY CAD 12/22/22 04/05/23 History
ferrous sulfate 325 mg (65 mg 325 mg PO DAILY Supplement 12/22/22 04/05/23 History
iron) tablet
acetaminophen 325 mg tablet 650 mg PO Q6HPRN PRN mild pain 01/16/23 04/05/23 History
apixaban 5 mg tablet 5 mg PO BID Blood Clot 01/16/23 04/05/23 History
Prevention/Tx
calcium carbonate 500 mg-vitamin 1 tab PO BID Supplement 01/16/23 04/05/23 History
D3 5 mcg (200 unit) tablet
furosemide 40 mg tablet 40 mg PO BID Fluid 03/30/23 04/05/23 Rx
Retention/Swelling #0 tabs
insulin aspart U-100 100 unit/mL 5 unit (0.05 mL) SC AC #15 mL 03/30/23 04/05/23 Rx
(3 mL) subcutaneous pen (Novolog
FlexPen U-100 Insulin aspart)
metoprolol succinate 25 mg 25 mg PO DAILY #30 tabs 03/30/23 04/05/23 Rx
tablet,extended release 24 hr
midodrine 5 mg tablet 5 mg PO Q8 #90 tabs 03/30/23 04/05/23 Rx
Lactobac no.2-Bifidobac no.1-S. 1 cap PO DAILY 04/05/23 04/05/23 History
thermo 112.5 billion cell capsule
(Visbiome)
insulin glargine-yfgn 100 unit/mL 12 unit SC QPM 04/05/23 04/05/23 History
subcutaneous solution
magnesium hydroxide 400 mg/5 mL 2,400 mg PO HSPRN PRN if no bm by 04/05/23 04/05/23 History
oral suspension (Milk of Magnesia) 3rd day
oseltamivir 75 mg capsule (Tamiflu) 75 mg PO DAILY 04/05/23 04/05/23 History
pantoprazole 40 mg tablet,delayed 40 mg PO DAILY 04/05/23 04/05/23 History
release (Protonix)
prednisone 10 mg tablet 40 mg PO UD 04/05/23 04/05/23 History
Review of Systems
-
History Source: Patient
General: Reports Weight Loss (7 pounds over 1 week); Denies Fever, Weight Gain, Fatigue or Chills
HEENT: Denies Visual Changes, Dysphagia or Hoarseness
Respiratory: Reports SOB and BEE; Denies Cough, Asthma or PND
Cardiac: Reports Chest Pain, CAD and Known Vascular Disease; Denies Palpitations, Nausea, Vomiting, Diaphoresis or Edema
Abdomen/GI: Reports Reflux and Constipation; Denies Abdominal Pain, Indigestion, Nausea, Vomiting, Diarrhea, BRBPR or Ulcers
: Reports Frequency and Urgency; Denies Dysuria, Incontinence, Hematuria or Nocturia
Musculoskeletal: Reports Myalgias and Arthralgias; Denies Edema
Skin: Reports Itching; Denies Rash
Neurological: Reports Dizzy; Denies CVA, TIA, Headaches, Syncope or Seizures
Vascular: Denies Claudication or PVD
Physical Exam
Vital Signs
Temp 98.3 F 04/05/23 21:49
Temp route: Oral 04/05/23 21:49
Pulse 75 04/06/23 09:04
Rhythm: Atrial fibrillation 04/06/23 06:45
Resp Rate 15 04/06/23 08:27
Blood pressure 112/54 04/06/23 09:04
Blood pressure extremity used: Left upper arm 04/05/23 21:42
Position: Lying 04/05/23 21:42
MAP (cuff-Loree Monitor) 72 04/06/23 08:00
MAP 104 04/05/23 21:42
SaO2 100 04/06/23 08:27
Nasal Cannula flow liters per minute 2 04/06/23 08:27
Oxygen Mode of Delivery Room air 04/06/23 06:45
Can the patient verbally communicate their pain? Yes 04/06/23 06:45
Actual Weight 122 lb 12.76 oz 04/06/23 06:00
Body Mass Index (BMI) 23.2 04/06/23 06:00
Labs
04/05/23 21:56
04/05/23 21:56
Troponin I 0.102 ng/ml H* 04/06/23 06:36
Qha-C-Sjypmnhkipu Pept 5900 pg/ml 04/06/23 01:00
Urinalysis
Urine Color Yellow 04/06/23 00:26
Urine Clarity Clear (Clear) 04/06/23 00:26
Urine pH 5.0 (5.0-9.0) 04/06/23 00:26
Ur Specific [place] 1.015 (<1.030) 04/06/23 00:26
Urine Ketones Negative (Negative) 04/06/23 00:26
Ur Occult Blood Reflex Negative (Negative) 04/06/23 00:26
Urine Bilirubin Negative (Negative) 04/06/23 00:
Leukocyte Esterase Rfl 1+ (Negative) A 04/06/23:
Urine RBC 0-2 /HPF (0-2) 04/06/23:
Urine WBC (Reflex) >100 /HPF (0-5) A 04/06/23:
Ur Squamous Epith Cells >30 /LPF (Few) 04/06/23:
Amorphous Crystals Seen 04/06/23:
Urine Bacteria (Reflex) Many (Negative) A 04/06/23:
Urine Glucose Negative (Negative) 04/06/23:
Urine Albumin (Reflex) Trace (Neg - Trace) 04/06/23:
Exam
General: Well Developed, Well Nourished and No Apparent Distress
HEENT: Normocephalic, Moist Mucous Membranes, Atraumatic, PERRLA and EOMI
Neck: Trachea Midline
Respiratory: Clear; Negative Accessory Muscle Use
Cardiac: S1/S2 and Irregular Rhythm; Negative Murmur, Rub or Gallop
GI: Soft, Tender (RUQ and LUQ. Patient states this has been present for some time and sounds chronic ) and Other (Hypoactive); Negative Non Distended
Rectal: Deferred by Provider
Skin: Warm and Dry; Negative Rash
Neuro: AO x 3 and CN X-XII Intact
Extremities: Negative Upper Level Edema, Lower Level Edema, Upper Level Cyanosis, Lower Level Cyanosis, Upper Level Clubbing or Lower Level Clubbing
Psych: Calm
Assessment / Plan
-
Assessment:
83-year-old female with PMH of:
ILD / Bronchiectasis / Pulmonary Fibrosis
acute hypoxic respiratory failure/Recent VDRF (03/05 - 03/11)
Chronic HFpEF
Aortic Stenosis
Hypertension
ASCVD s/p PCI/ANGIE on chronic therapy with Plavix
Paroxysmal Atrial Fibrillation on chronic OAC w/ Eliquis
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
GI Bleeding / Duodenal Ectasias
GERD
Fibromyalgia
Iron Deficiency Anemia
KILEY
Now found to have newly diagnosed:
Pneumomediastinum
GURPREET with creatinine 1.8
Plan:
Patient's case will be discussed with attending physician
Patient is currently NPO.
Check CT esophagram per attending physician. If no esophageal leak or injury can resume diet.
Continue GI prophylaxis with PPI
If esophageal component is negative, continue with watchful waiting
--- NOTE | 2023-04-06 09:42 | CON.PUL ---
Consultation
Consultation Request
Date/Time Consultation Requested: 04/06
Date/Time Consultation Performed: 04/06
Reason for Consultation: pneumomediastinum
Medical History
-
History of Present Illness:
History obtained from the patient and also from reviewing the chart. Patient is an 83-year-old female with recent hospitalization, requiring ventilator dependence, extubated 03/11/2023 with interstitial lung disease, recently discharged 03/30/2023.
She was in rehabilitation when while sitting in bed, she had cute onset chest discomfort. Patient does admit to having chronic constipation worse over the past few weeks. She admitted to shortness of breath and some mild lightheadedness at the
time of her chest pain. Upon arrival to [facility], pulse 100, breathing at 22, blood pressure 150/83, 100%.
Patient denies any prior chest pain before 04/05 but ER records and medical records suggest intermittent substernal chest discomfort 2 days prior. Patient has not required more than 2 L of oxygen at rehabilitation per patient.
She was started on Tamiflu as prophylactic dose due to other residents with influenza. Patient denies fevers, chills, diarrhea
CT imaging of the chest revealed evidence of pneumomediastinum which we are asked to comment on.
.
PMH: History of COVID-pneumonia December 2022, interstitial lung disease/pulmonary fibrosis, bronchiectasis, scoliosis, history of GI bleed, atrial fibrillation on amiodarone, coronary disease with multiple stents, aortic stenosis, mitral
regurgitation, fibromyalgia, hypertension, hyperlipidemia, GERD, chronic back pain, recurrent UTIs, hiatal hernia. History of appendectomy, hysterectomy, tonsillectomy, hernia repair
Past Medical History
Past Medical History: None (See above)
Past Surgical History: None (See above)
Social History
Tobacco: Non-smoker
Alcohol: None
Drug: None
Living: Other (Rehabilitation)
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
Family History
Family History: Other (Negative for underlying lung disease)
Allergies / Home Medications
Allergies
Allergy/AdvReac Type Severity Reaction Status Date / Time
codeine [Codeine] Allergy Rash Verified 01/16/23 07:53
ethyl alcohol Allergy CHEMICAL Verified 01/16/23 07:53
SENSITIVITY
formaldehyde Allergy chemical Verified 01/16/23 07:53
sensitivity-
allergy
attack,
dry eyes,
wheezing
glycerin Allergy CHEMICAL Verified 01/16/23 07:53
SENSITIVITY
guaifenesin [From Mucinex] Allergy Hives Verified 01/16/23 07:53
Iodinated Contrast Media Allergy Rash/hives Verified 01/16/23 07:53
[Iodinated Contrast Media -
IV Dye]
morphine Allergy DECREASED Verified 01/16/23 07:53
HR
oxycodone HCl [From Percocet] Allergy Hives Verified 01/16/23 07:53
Sulfa (Sulfonamide Allergy throat Verified 01/16/23 07:53
Antibiotics) closes
muscle relaxers Allergy Hyper/tired Uncoded 01/16/23 07:53
seasonal Allergy nasal Uncoded 01/16/23 07:53
congestion/wheeze
Home Medications
Medication Instructions Recorded Confirmed Last Taken Type
nitroglycerin 0.4 mg sublingual 0.4 mg sublingual [id number] PRN 08/01/13 04/05/23 3 Months Ago History
tablet chest pain ~04/24/20
cholecalciferol (vitamin D3) 50 2,000 units PO DAILY Supplement 07/06/20 04/05/23 12/21/22 History
mcg (2,000 unit) tablet
clopidogrel 75 mg tablet 75 mg PO DAILY CAD 12/22/22 04/05/23 12/21/22 History
ferrous sulfate 325 mg (65 mg 325 mg PO DAILY Supplement 12/22/22 04/05/23 12/21/22 History
iron) tablet
acetaminophen 325 mg tablet 650 mg PO Q6HPRN PRN mild pain 01/16/23 04/05/23 Unknown History
apixaban 5 mg tablet 5 mg PO BID Blood Clot 01/16/23 04/05/23 Unknown History
Prevention/Tx
calcium carbonate 500 mg-vitamin 1 tab PO BID Supplement 01/16/23 04/05/23 Unknown History
D3 5 mcg (200 unit) tablet
furosemide 40 mg tablet 40 mg PO BID Fluid 03/30/23 04/05/23 Unknown Rx
Retention/Swelling #0 tabs
insulin aspart U-100 100 unit/mL 5 unit (0.05 mL) SC AC #15 mL 03/30/23 04/05/23 Unknown Rx
(3 mL) subcutaneous pen (Novolog
FlexPen U-100 Insulin aspart)
metoprolol succinate 25 mg 25 mg PO DAILY #30 tabs 03/30/23 04/05/23 Unknown Rx
tablet,extended release 24 hr
midodrine 5 mg tablet 5 mg PO Q8 #90 tabs 03/30/23 04/05/23 Unknown Rx
Lactobac no.2-Bifidobac no.1-S. 1 cap PO DAILY 04/05/23 04/05/23 Unknown History
thermo 112.5 billion cell capsule
(Visbiome)
insulin glargine-yfgn 100 unit/mL 12 unit SC QPM 04/05/23 04/05/23 Unknown History
subcutaneous solution
magnesium hydroxide 400 mg/5 mL 2,400 mg PO HSPRN PRN if no bm by 04/05/23 04/05/23 Unknown History
oral suspension (Milk of Magnesia) 3rd day
oseltamivir 75 mg capsule (Tamiflu) 75 mg PO DAILY 04/05/23 04/05/23 Unknown History
pantoprazole 40 mg tablet,delayed 40 mg PO DAILY 04/05/23 04/05/23 Unknown History
release (Protonix)
prednisone 10 mg tablet 40 mg PO UD 04/05/23 04/05/23 Unknown History
Review of Systems
-
All other systems: Negative unless noted
Vitals / Labs / Diagnostic Testing
Vital Signs
Temp Pulse Resp BP Pulse Ox
98.3 F 75 15 112/54 100
04/05/23 21:49 04/06/23 09:04 04/06/23 08:27 04/06/23 09:04 04/06/23 08:27
Lab Data
04/05/23 21:56
04/05/23 21:56
Diagnostic Testing:
Physical Exam
-
HEENT: Normocephalic and Anicteric
Cardiovascular: S1/S2, Regular Rhythm, Murmur (n), Rub (n), Peripheral Edema (n) and Calf Tenderness (n)
Respiratory: Wheeze (n), Rales (n), Rhonchi (n), Non-Labored Respirations and Other (Few squeaks at left base)
GI: Soft, Tender (Lower abdominal discomfort, no rebound or guarding) and Normal Bowel Sounds
Neurology: Awake, Alert and No Motor Deficits (Able to sit up without assistance)
Skin: Other (No clubbing, cyanosis)
General: Comfortable
Assessment
-
83-year-old female with recent hospital stay, VDRF, ILD flare, discharged 03/30/2023 to rehabilitation, now presents with acute onset chest discomfort. CT imaging revealed pneumomediastinum. We are asked to comment on pulmonary process. Of note,
patient denies any trauma, falls, emesis. She admits to worsening constipation over the past few weeks which is unusual for her.
Acute pneumomediastinum
Acute onset chest pain 04/05, now resolved
Interstitial lung disease with recent ILD flare
History of steroid use in the past
Discharged on prednisone taper, 50 mg 03/30/2023
VDRF, extubated 03/11/2023
Discharge 03/30/2023
Conditions present prior to admission
History of heart failure
History of COVID-pneumonia December 2022
History of pulmonary fibrosis
Followed by Dr. Adame as op
History of GI bleed
Duodenal ectasia
Schatzki's ring GE junction 12/17/2022
Scoliosis
Atrial fibrillation on amiodarone, apixaban
CAD, multiple stents, last 11-11-22 (one stent at [place]), on plavix
Aortic stenosis, mitral regurgitation
Hypertension/hyperlipidemia
Fibromyalgia
GERD/hiatal hernia
Diverticulitis, IBS
History of recurrent UTIs
History of appendectomy,D&C, hysterectomy, Tonsillectomy, Hernia repair
Lifelong non-smoker
DNR per prior hospital stay
Plan/Recommendations
At this time, patient appears to be comfortable, chest pain has resolved
She had transient chest pain few days ago per records although patient denies
CT imaging with pneumomediastinum
Patient with baseline interstitial lung disease, on chronic steroid therapy
Patient describes worsening constipation over the past few weeks, significant bearing down (more than usual per pt)
Denies nausea, emesis
Moving forward
Continue with supportive care
Unfortunately, patient is on chronic steroids after recent prolonged hospital stay being tapered, currently on 40 mg prednisone
No changes for now but will consider coming down as this will increase risk for persistent air leak
Unfortunate will require slow taper
Avoid positive pressure ventilation, NIV
Recommend bowel regimen, stool softener
There is no clear history of emesis, nausea arguing against esophageal perforation
Will check chest x-ray in a.m.
Continue oxygen therapy
Patient on 2 L at this time, adequate oxygenation
Reviewed extensive records from recent hospital stay
Extensive discussions with family, family had decided at one point to not pursue tracheotomy, DNR status noted
Currently full code
We will need to clarify with patient, family
DVT prophylaxis: Sequential teds, consider adding pharmacological prophylaxis. Patient was on Eliquis as outpatient. Okay to resume from pulmonary standpoint
GI prophylaxis: Continue pantoprazole
Will follow
[2023-04-06] MEDS: NSS IV (10:49)
[2023-04-06] MEDS: LR 1000 IV (11:19)
--- NOTE | 2023-04-06 13:32 | W.PN.UPDATE ---
Update Note
Progress Note Update
This note serves as supplemental to history and physical dated today. Given additional IV fluids, LR bolus today. Hold Lasix at this time due to GURPREET. Continue to monitor�has significantly lost weight since prior.
Chest x-ray tomorrow morning. CT esophagram to monitor for esophageal leak. If negative, can resume diet. Continue PPI.
Can resume Plavix, Eliquis once confirmed that no surgical procedure planned
[2023-04-06 13:33] LABS: Glucose - Point of Care 104 mg/dl (70-99)
[2023-04-06] MEDS: BENADRYL 50 MG IV (14:24)
[2023-04-06] MEDS: SENOKOT-S 1 TABLET PO ×2 (14:24→21:38)
[2023-04-06] MEDS: MYCOSTATIN ORAL SUSPENSION 5 ML PO ×2 (14:24→21:38)
--- NOTE | 2023-04-06 14:27 | PTCARENOTE ---
Per Pharmacist's conversation with nursing and the CT Scan dept, will premedicate pt with Benadryl due to hx of allergy to Iodinated IV Contrast, and then send for CT Esophagram 30-60 post. Pt and daughter updated.
--- NOTE | 2023-04-06 16:12 | PTCARENOTE ---
Troponin trended to peak.
--- NOTE | 2023-04-06 16:24 | PTCARENOTE ---
Pt returned back to room from CT esophagram. Drowsy from previous dose of Benadryl. Daughters at bedside.
[2023-04-06] MEDS: ProAmatine PO (16:26)
--- NOTE | 2023-04-06 16:47 | CM ---
Patient from [facility] with Dx Acute pneumomediastinum. O2 2L. CT Chest today. PT & OT Evals pending.
Patient off the unit.
Met with patient's daughters Camille VIKRAM and Nery and spoke with daughter Estuardo VIKRAM on speaker phone;
The patient was at [facility] for 6 days for short term rehab and when she left yesterday to come back to she told the SNF not to hold her bed there. She told her daughters she thought she was being pushed too hard to do rehab there. She had
been ambulatory at [facility].
Prior to her last recent hospital admission the patient had resided alone in a split level house with 2 DEAN and 6 inside stairs between floors.
She had been independent in ADLs and ambulated with her RW.
DME - RW, w/c, CPAP, home O2 concentrator and portables through [facility] (daughter says O2 needs new script to continue)
VN - prior [facility]
SNF - [facility]
PCP - Arcelia Pacheco
Pharmacy - [facility]
Daughters agree to discuss SNF with patient once PT/OT Evals are available.
Plan follow up after PT/OT Evals.
[2023-04-06] MEDS: MYCOSTATIN ORAL SUSPENSION PO (17:53)
[2023-04-06] MEDS: LANTUS 0.119999999999999996 UNITS SC (17:53)
[2023-04-06 18:03] LABS: Glucose - Point of Care 129 mg/dl (70-99)
[2023-04-06 21:58] LABS: Glucose - Point of Care 99 mg/dl (70-99)
[2023-04-07] VITALS (18 sets, daily range): BP systolic 85–151; BP diastolic 36–108; PULSE 140–148; O2SAT 94–96; BMI 23.5
[2023-04-07] MEDS: ProAmatine 5 MG PO ×2 (00:14→08:34)
--- NOTE | 2023-04-07 02:40 | PTCARENOTE ---
Pt awoke, said she felt like she couldn't move and wasn't breathing right. Skin warm and dry, BP improved 121/76 after Scheduled dose of Midodrine earlier. Heart rhythm unchanged, atrial fib 70-80's. O2 sat was 95% on 2 liters NC. Resp rate was 18.
Increased O2 to 3 L NC briefly for comfort and repositioned pt and gave back rub. She can move all her extremities without difficulty, she said she just felt weird when she woke up and it has passed. Gave pt some apple juice as she had not eaten
much dinner due to being so sleepy after having Benadryl with her testing yesterday. Said she feels better now. Will continue to monitor pt.
[2023-04-07 05:17] LABS: Hemoglobin 8.4 g/dL (12.0-16.0); Mean Corp Hgb Conc. 33.6 g/dL (33.0-37.0); Mean Corpuscular Hgb 32.4 pg (27.0-31.0); Mean Corpuscular Volume 96.5 fL (81.0-99.0); Mean Platelet Volume 10.3 fL (7.4-10.4); Platelet Count 147 10^3/uL (130-400); Red Blood Cell Count 2.59 10^6/uL (4.20-5.40); Red Cell Dist. Width 16.6 % (11.5-14.5); White Blood Cell Count 12.4 10^3/uL (4.8-10.8)
[2023-04-07 05:57] LABS: Blood Urea Nitrogen 54 mg/dl (7-17); Calcium 8.5 mg/dl (8.4-10.2); Chloride 87 mmol/L (98-107); Estimated Creatinine Clearance 28 ml/min; Glucose 99 mg/dl (70-99); Potassium 2.7 mmol/L (3.5-5.1); Sodium 134 mmol/L (135-145); eGFR 49.24
[2023-04-07 06:11] LABS: Carbon Dioxide 41 mmol/L (22-30)
[2023-04-07] MEDS: KCL 270 MEQ IV (06:31)
--- NOTE | 2023-04-07 07:37 | PTCARENOTE ---
Pt's Potassium called as a critical value at 2.7, TT to Mana ALVARADO and orders written for Jodie avelar. IV potassium running presently.
--- NOTE | 2023-04-07 08:29 | W.PN.PUL3 ---
Addendum entered and electronically signed by Kathryn Martins MD 04/07/23 11:01:
Steroid taper noted, will decrease to 30 mg as of 04/12. Please note the patient will require slow taper as outpatient given ILD, chronic lung disease with close eye on pulmonary symptoms during steroid taper
Original Note:
Today's Communication / Plan
-
Decrease prednisone to 30 mg
Baseline chest x-ray in a.m.
Stool softener, treat constipation
Would advance diet
Patient was DNR during prior hospital stay. Would clarify
Assessment
-
83-year-old female with recent hospital stay, VDRF, ILD flare, discharged 03/30/2023 to rehabilitation, now presents with acute onset chest discomfort. CT imaging revealed pneumomediastinum. We are asked to comment on pulmonary process. Of note,
patient denies any trauma, falls, emesis. She admits to worsening constipation over the past few weeks which is unusual for her.
Acute pneumomediastinum
Acute onset chest pain 04/05, now resolved
Interstitial lung disease with recent ILD flare
History of steroid use in the past
Discharged on prednisone taper, 50 mg 03/30/2023
VDRF, extubated 03/11/2023
Discharge 03/30/2023
Conditions present prior to admission
History of heart failure
History of COVID-pneumonia December 2022
History of pulmonary fibrosis
Followed by Dr. Adame as op
History of GI bleed
Duodenal ectasia
Schatzki's ring GE junction 12/17/2022
Scoliosis
Atrial fibrillation on amiodarone, apixaban
CAD, multiple stents, last 11-11-22 (one stent at [place]), on plavix
Aortic stenosis, mitral regurgitation
Hypertension/hyperlipidemia
Fibromyalgia
GERD/hiatal hernia
Diverticulitis, IBS
History of recurrent UTIs
History of appendectomy,D&C, hysterectomy, Tonsillectomy, Hernia repair
Lifelong non-smoker
DNR per prior hospital stay
Plan/Recommendations
At this time, patient appears to be comfortable, chest pain has resolved
SCT imaging with pneumomediastinum
CT esophagram without any evidence of extravasation
Hemoglobin drop noted, 8.4, was 11.81/31
Patient with baseline interstitial lung disease, on chronic steroid therapy
Patient describes worsening constipation over the past few weeks, significant bearing down (more than usual per pt)
Denies nausea, emesis
Moving forward
Continue with supportive care
Unfortunately, patient is on chronic steroids after recent prolonged hospital stay being tapered, currently on 40 mg prednisone
No changes for now but will consider coming down as this will increase risk for persistent air leak
Unfortunate will require slow taper, will decrease to 30 mg
Reviewed with patient that shortness of breath will be chronic, has end-stage lung disease, chronic interstitial disease
Avoid positive pressure ventilation, NIV
Recommend bowel regimen, stool softener
There is no clear history of emesis, nausea arguing against esophageal perforation
Will check chest x-ray in a.m. this will act as baseline to follow pneumomediastinum, subcutaneous emphysema
Supportive care moving forward
Continue oxygen therapy
Patient on 2 L at this time, adequate oxygenation
Reviewed extensive records from recent hospital stay
Extensive discussions with family, family had decided at one point to not pursue tracheotomy, DNR status noted
Currently full code
We will need to clarify with patient, family
DVT prophylaxis: Sequential teds, consider adding pharmacological prophylaxis. Patient was on Eliquis as outpatient. Okay to resume from pulmonary standpoint
GI prophylaxis: Continue pantoprazole
Okay to advance diet from pulmonary standpoint
Subjective Data
-
Date of Service:
Date of Service: April 07, 2023
Subjective:
Patient continues with intermittent shortness of breath. Chest pain has resolved. Denies nausea, emesis. She is hungry and wants to eat. Appears comfortable, conversant
Objective Data
Data Reviewed
Vital Signs / I&O / Oxygen:
Vital Signs
Temp Pulse Resp BP Pulse Ox
98.1 F 77 23 100/58 94
04/07/23 03:53 04/07/23 06:00 04/07/23 06:00 04/07/23 06:00 04/07/23 06:00
Intake and Output
04/06/23 04/07/23 04/08/23
06:59 06:59 06:59
Intake Total 1750 / 1750
Output Total 825 / 825
Balance 925 / 925
SaO2 94
Nasal Cannula flow liters per 2
minute
Physical Exam
General: Comfortable
HEENT: Normocephalic and Anicteric
Cardiovascular: S1-S2, Regular Rhythm, Murmur (n), Peripheral Edema (n) and Calf Tenderness (n)
Respiratory: Wheeze (n), Crackles (Bilateral posterior), Rhonchi (n), Non-Labored Respirations, Stridor (n) and Crepitus (n)
GI: Soft, Non Distended and Non Tender
Neurology: Awake, Alert and No Motor Deficits
Skin: Cyanosis (n), Jaundice (n) and Rash (n)
Labs/Micro/Reports
Lab Data
04/07/23 05:05
04/07/23 05:05
[2023-04-07] MEDS: SENOKOT-S 1 TABLET PO ×2 (08:33→20:13)
[2023-04-07] MEDS: TOPROL XL 25 MG PO (08:33)
[2023-04-07] MEDS: MYCOSTATIN ORAL SUSPENSION 5 ML PO ×4 (08:33→21:20)
[2023-04-07] MEDS: NOVOLOG FLEXPEN-LOW RESISTANCE SC ×2 (08:33→17:43)
[2023-04-07] MEDS: LOW STRENGTH ASPIRIN 81 MG PO (08:33)
[2023-04-07] MEDS: DELTASONE 40 MG PO (08:34)
[2023-04-07] MEDS: PROTONIX IV 40 MG IV (08:34)
[2023-04-07] MEDS: NSS (PRESERVATIVE FREE) 10 ML IV (08:34)
[2023-04-07 09:00] LABS: Glucose - Point of Care 75 mg/dl (70-99)
--- NOTE | 2023-04-07 09:54 | W.PN.UPDATE ---
Addendum entered and electronically signed by JENNY Song 04/07/23 10:36:
Original Note:
Update Note
Progress Note Update
Patient seen with Dr. Argueta. Ct scan yesterday showed a stable pneumomediastinum with no esophageal perforation. Patient is not a surgical candidate for intervention. Would repeat CT scan in 2-[address] surgery to sign off. Please reconsult if
needed.
[2023-04-07] MEDS: KCL ELIXIR 40 MEQ PO (11:00)
--- NOTE | 2023-04-07 13:04 | CM ---
Patient from [facility] with Dx Acute pneumomediastinum. O2 2 L. PT/OT held today due to elevated troponin.
As per prior CM notes, patient not keen to return to [facility] and SNF bed not held. Daughters agree to discuss SNF with patient once PT/OT Evals are available.
Plan follow up after PT/OT Evals.
[2023-04-07 13:41] LABS: Glucose - Point of Care 215 mg/dl (70-99)
--- NOTE | 2023-04-07 14:25 | W.PN.HOSP.TC ---
Today's Communication/Plan
-
conservative management
steroid taper as noted
CXR in AM
CT Chest in 2-3 days
Assessment / Plan
Assessment / Plan
Physical Exam
General: Other (83y F in no acute distress at present.)
HEENT: Moist mucous membranes and PERRLA
Respiratory: Other (crackles throughout b/l lung pickering.� No wheezing.� )
Cardiac: S1/S2, Irregular Rhythm and Murmur (II/ BRAD)
GI: Soft, Non Tender, Non Distended and Normal Bowel Sounds
Musculoskeletal: No Clubbing, No Cyanosis and Other (1+ pitting edema b/l ankles)
Neuro: AO x 3
A/P:� Patient is an 83y F with PMH significant for ILD / pulm fibrosis, ASCVD, A-Fib and recent hospitalization for respiratory failure including intubation / ventilation who presents to ED from SNF complaining of chest pain.
Chest Pain
Pneumomediastinum / Pneumoperitoneum
�- Patient s/p recent mechanical ventilation (03/05/23 - 03/11/23).
�- No fall / injury / trauma.
�- No leak on CT Imaging
�- CT Surgery evaluation - treatment will remain supportive.
- CXR in AM
-Appreciate Pulm and CTS recs
-repeat CT scan in 2-3 days
ILD / Pulmonary Fibrosis / Bronchiectasis
Chronic Hypoxemic Respiratory Failure
�- Patient discharged on 2 lpm of supplemental O2.
�- Continues with adequate oxygenation on this rate.
�- No new fevers / chills, increased cough, etc.
�- Continue current prednisone dosing / taper.
-Pulm following taper: Steroid taper: will decrease to 30 mg as of 04/12.��Slow taper;
�- Pulm evaluation as noted above.
Chronic HFpEF
�- Stable.� No evidence of significant hypervolemia on exam.
�- Hold Lasix acutely and follow I/Os, daily weights, etc.
�- Restart usual diuretic regimen when appropriate.
�- Weight today decreased from discharge.
GURPREET
�- SCr = 1.8 compared to prior baseline of 0.9.
-Improved with holding diuretics; IVF
�- Suspect hypovolemia due to diuretic dosing given decrease in weight, etc.
�-resume diuretics when stable
Paroxysmal Atrial Fibrillation
�- Stable.� Continue metoprolol for rate control.
�- Hold Eliquis acutely in the vent that invasive procedure / intervention is required. ctm
ASCVD
�- No new EKG changes concerning for active ischemia.
�- Chest pain seems clearly related to newly appreciated pneumomediastinum.
�- Follow serial troponin and monitor for any new/ worsening symptoms.
�- Continue CV med regimen.
�- Change Plavix to ASA acutely in the event that any invasive procedure is needed.
Hypotension
�- Stable at present.� Continue midodrine with holding parameters.
GERD / Duodenal Ectasia
�- Stable.� No evidence of recurrent bleeding.
�- s/p cautery 12/2022.
�- Continue PPI - especially while on PO steroids.
DM-II, Steroid-Induced
�- Stable.� Continue basal insulin.
�- Follow glucose and cover with SSI as needed.
�- Recent A1C was 5.5%.
DVT Prophylaxis:� SCDs while Eliquis on hold.
Code Status:� Full
Total time spent on today's encounter was 55 minutes which included time spent in counseling the patient/family regarding diagnosis and treatment plan as listed above, goals of care, and symptom management. Case was discussed with nursing staff,
specialists, and care coordinators/case management. All labs and imaging personally reviewed by me. Remainder the time spent in detailed review of previous records, lab data, imaging, and other medical provider documentation.
Anticipated Discharge: Today
Subjective/Interval History
-
Date of Service: April 07, 2023
No esophageal leak on CAT scan
Objective Data
-
Labs:
Laboratory Results
04/07/23 04/07/23
05:05 15:00
WBC 12.4 H
Hgb 8.4 L D
Hct 25.0 L
Plt Count 147 D
Sodium 134 L Pending
Potassium 2.7 L* Pending
Chloride 87 L Pending
Carbon Dioxide 41 H Pending
BUN 54 H Pending
Creatinine 1.1 H Pending
Glucose 99 Pending
Calcium 8.5 Pending
Vital Signs:
Vital Signs
Temp Pulse Resp BP Pulse Ox
98.7 F 77 23 100/58 94
04/07/23 11:44 04/07/23 06:00 04/07/23 06:00 04/07/23 06:00 04/07/23 06:00
I&O
04/06/23 04/07/23 04/08/23
06:59 06:59 06:59
Intake Total 1750 / 1750
Output Total 825 / 825
Balance 925 / 925
Review of Systems
-
All other systems: Reviewed and negative
Data Reviewed
-
Diagnostic Radiology: Image personally visualized and interpreted and Report Reviewed by me
Labs: Labs Reviewed by me
[2023-04-07 16:25] LABS: Blood Urea Nitrogen 45 mg/dl (7-17); Calcium 8.7 mg/dl (8.4-10.2); Carbon Dioxide 40 mmol/L (22-30); Chloride 90 mmol/L (98-107); Estimated Creatinine Clearance 26 ml/min; Glucose 312 mg/dl (70-99); Sodium 133 mmol/L (135-145); eGFR 44.36
--- NOTE | 2023-04-07 16:25 | CM ---
Patient from [facility] with Dx Acute pneumomediastinum. PT & OT recommend skilled rehab.
Spoke with VIKRAM Marte; she reached out to [facility] but did not hear back for a tour. She is also interested in [facility]. She is unsure if her mother would be willing to
return to [facility].
Spoke with Jose Reeder [facility]
SNF referrals placed.
Plan follow up SNF referrals.
[2023-04-07] MEDS: KCL ELIXIR PO (17:18)
[2023-04-07] MEDS: ZOFRAN 4 MG IV (17:20)
[2023-04-07 17:34] LABS: Glucose - Point of Care 373 mg/dl (70-99)
[2023-04-07] MEDS: ProAmatine PO (17:41)
[2023-04-07] MEDS: NOVOLOG FLEXPEN-LOW RESISTANCE 5 UNITS SC (17:41)
[2023-04-07] MEDS: LANTUS 0.119999999999999996 UNITS SC (17:55)
[2023-04-07] MEDS: TYLENOL 650 MG PO (17:58)
--- NOTE | 2023-04-07 20:39 | PTCARENOTE ---
Received pt from [facility]. Pt is AAOx3, flat. Afib on the monitor, trace ankle edema. On 2L NC O2 sat 98%, lungs are diminished/crackles, BEE. Incont x2 @ times, hygiene provided. Pt is laying comfortable in bed with call lorenzana in reach.
[2023-04-07 21:52] LABS: Glucose - Point of Care 243 mg/dl (70-99)
[2023-04-08] VITALS (12 sets, daily range): BP systolic 94–135; BP diastolic 47–79; BMI 23.3
[2023-04-08] MEDS: ProAmatine 5 MG PO ×3 (00:08→17:27)
[2023-04-08 05:27] LABS: % Basophils 0.1 % (0-2); % Immature Granulocytes 0.6 % (0-0.5); % Lymphocytes 6.3 % (20.5-51.1); % Monocytes 4.9 % (1.7-9.3); % Neutrophils 88.1 % (42.2-75.2); Absolute Immature Granulocytes 0.1 10^3/uL (0-0.05); Absolute Lymphocytes 0.7 10^3/uL (1.2-3.4); Absolute Monocytes 0.5 10^3/uL (0.1-0.6); Absolute Neutrophils 9.6 10^3/uL (1.4-6.5); Mean Corp Hgb Conc. 33.3 g/dL (33.0-37.0); Mean Corpuscular Hgb 32.7 pg (27.0-31.0); Mean Corpuscular Volume 98.2 fL (81.0-99.0); Mean Platelet Volume 10.8 fL (7.4-10.4); Nucleated Red Blood Cells % 0 %; Platelet Count 129 10^3/uL (130-400); Red Blood Cell Count 2.75 10^6/uL (4.20-5.40); White Blood Cell Count 10.9 10^3/uL (4.8-10.8)
[2023-04-08 05:53] LABS: Blood Urea Nitrogen 44 mg/dl (7-17); Calcium 8.7 mg/dl (8.4-10.2); Chloride 94 mmol/L (98-107); Estimated Creatinine Clearance 34 ml/min; Glucose 109 mg/dl (70-99); Potassium 4.2 mmol/L (3.5-5.1); Sodium 136 mmol/L (135-145); eGFR > 60.00
[2023-04-08 06:03] LABS: Carbon Dioxide 36 mmol/L (22-30)
[2023-04-08 07:58] LABS: Glucose - Point of Care 93 mg/dl (70-99)
[2023-04-08] MEDS: NOVOLOG FLEXPEN-LOW RESISTANCE SC (08:46)
[2023-04-08] MEDS: TYLENOL 650 MG PO (08:57)
[2023-04-08] MEDS: LOW STRENGTH ASPIRIN 81 MG PO (08:58)
[2023-04-08] MEDS: MYCOSTATIN ORAL SUSPENSION 5 ML PO ×4 (08:58→20:27)
[2023-04-08] MEDS: PROTONIX IV 40 MG IV (08:59)
[2023-04-08] MEDS: TOPROL XL 25 MG PO (08:59)
[2023-04-08] MEDS: DELTASONE 40 MG PO (08:59)
[2023-04-08] MEDS: SENOKOT-S PO (09:00)
[2023-04-08] MEDS: NSS (PRESERVATIVE FREE) 10 ML IV (09:00)
--- NOTE | 2023-04-08 12:23 | W.PN.PUL3 ---
Today's Communication / Plan
-
O2
CS
Assessment
-
83-year-old female with recent hospital stay, VDRF, ILD flare, discharged 03/30/2023 to rehabilitation, now presents with acute onset chest discomfort. CT imaging revealed pneumomediastinum. We are asked to comment on pulmonary process. Of note,
patient denies any trauma, falls, emesis. She admits to worsening constipation over the past few weeks which is unusual for her.
Acute pneumomediastinum
Acute onset chest pain 04/05, now resolved
Interstitial lung disease with recent ILD flare
History of steroid use in the past
Discharged on prednisone taper, 50 mg 03/30/2023
VDRF, extubated 03/11/2023
Discharge 03/30/2023
Conditions present prior to admission
History of heart failure
History of COVID-pneumonia December 2022
History of pulmonary fibrosis
Followed by Dr. Adame as op
History of GI bleed
Duodenal ectasia
Schatzki's ring GE junction 12/17/2022
Scoliosis
Atrial fibrillation on amiodarone, apixaban
CAD, multiple stents, last 11-11-22 (one stent at [place]), on plavix
Aortic stenosis, mitral regurgitation
Hypertension/hyperlipidemia
Fibromyalgia
GERD/hiatal hernia
Diverticulitis, IBS
History of recurrent UTIs
History of appendectomy,D&C, hysterectomy, Tonsillectomy, Hernia repair
Lifelong non-smoker
DNR per prior hospital stay
Plan/Recommendations
CT imaging with pneumomediastinum
CT esophagram without any evidence of extravasation
Hemoglobin drop noted, 8.4, was 11.81
Patient with baseline interstitial lung disease, on chronic steroid therapy
Patient describes worsening constipation over the past few weeks, significant bearing down (more than usual per pt)
Denies nausea, emesis
Avoid positive pressure ventilation, NIV
Unfortunately, patient is on chronic steroids after recent prolonged hospital stay being tapered, currently on 40 mg prednisone
No changes for now but will consider coming down as this will increase risk for persistent air leak
Unfortunate will require slow taper, currently at 40 mg qd since 04-06
Patient aware that shortness of breath will be chronic, has end-stage lung disease, chronic interstitial disease, she understands
Started bowel regimen, stool softener
There is no clear history of emesis, nausea arguing against esophageal perforation
Chest x-ray 04-08 reviewed, marked improvement of pneumomediastinum
Continue oxygen therapy
Patient on 2 L at this time, adequate oxygenation, POx high 90s at rest
Reviewed extensive records from recent hospital stay
Extensive discussions with family, family had decided at one point to not pursue tracheotomy, DNR status noted
DVT prophylaxis: Sequential teds, consider adding pharmacological prophylaxis. Patient was on Eliquis as outpatient. Okay to resume from pulmonary standpoint
GI prophylaxis: Continue pantoprazole
Okay to advance diet from pulmonary standpoint
D/w Mrs Valdovinos and her daughter at bedside 04-08
Subjective Data
-
Date of Service:
Date of Service: April 08, 2023
Chief Complaint: Pulmonary Follow Up
Subjective:
No major events reported overnight
Accompanied by her daughter at bedside
Denies dyspnea at rest comfortable with on oxygen, denies chest pain
Able to swallow with no issue
Review of Systems
General: Fever (n), Sweats (n), Chills (n) and Satisfactory Appetite (n)
Cardiopulmonary: Dyspnea (n), Cough (n), Wheezing (n) and Chest Pain (n)
GI: Abdominal Pain, Nausea (n) and Vomiting (n)
Neuro: Weakness
Objective Data
Data Reviewed
Vital Signs / I&O / Oxygen:
Vital Signs
Temp Pulse Resp BP Pulse Ox
97.7 F 106 23 107/60 99
04/08/23 11:00 04/08/23 10:00 04/08/23 10:00 04/08/23 10:00 04/08/23 11:57
Intake and Output
04/07/23 04/08/23 04/09/23
06:59 06:59 06:59
Intake Total 1750 / 1750 200 / 200
Output Total 825 / 825
Balance 925 / 925 200 / 200
SaO2 99
Nasal Cannula flow liters per 2
minute
Physical Exam
General: Comfortable
HEENT: Normocephalic and Anicteric
Cardiovascular: S1-S2, Regular Rhythm, Murmur (n), Peripheral Edema (n) and Calf Tenderness (n)
Respiratory: Wheeze (n), Crackles (Bilateral posterior), Rhonchi (n), Non-Labored Respirations, Stridor (n), Crepitus (n) and Other (no sc emphysema)
GI: Soft, Non Distended, Non Tender and Normal Bowel Sounds
Neurology: Awake, Alert and No Motor Deficits
Skin: Cyanosis (n), Jaundice (n) and Rash (n)
Labs/Micro/Reports
Lab Data
04/08/23 04:52
04/08/23 04:52
Microbiology
04/06/23 00:26 Urine Urine Culture - Preliminary
Gram negative bacilli
04/06/23 06:50 Nose MRSA Screen - Final
No Methicillin Resistant Staphylococcus aureus isolated.
--- NOTE | 2023-04-08 13:18 | W.PN.HOSP.TC ---
Today's Communication/Plan
-
cxr today
ct chest in 1-2 days
Assessment / Plan
Assessment / Plan
Physical Exam
General: Other (83y F in no acute distress at present.)
HEENT: Moist mucous membranes and PERRLA
Respiratory: Other (crackles throughout b/l lung pickering.� No wheezing.� )
Cardiac: S1/S2, Irregular Rhythm and Murmur (II/ BRAD)
GI: Soft, Non Tender, Non Distended and Normal Bowel Sounds
Musculoskeletal: No Clubbing, No Cyanosis and Other (1+ pitting edema b/l ankles)
Neuro: AO x 3
A/P:� Patient is an 83y F with PMH significant for ILD / pulm fibrosis, ASCVD, A-Fib and recent hospitalization for respiratory failure including intubation / ventilation who presents to ED from SNF complaining of chest pain.
Chest Pain
Pneumomediastinum / Pneumoperitoneum
�- Patient s/p recent mechanical ventilation (03/05/23 - 03/11/23).
�- No fall / injury / trauma.
�- No leak on CT Imaging
�- CT Surgery evaluation - treatment will remain supportive.
- CXR F/u
-Appreciate Pulm and CTS recs
-repeat CT scan in 1-2 days
ILD / Pulmonary Fibrosis / Bronchiectasis
Chronic Hypoxemic Respiratory Failure
�- Patient discharged on 2 lpm of supplemental O2.
�- Continues with adequate oxygenation on this rate.
�- No new fevers / chills, increased cough, etc.
�- Continue current prednisone dosing / taper.
-Pulm following taper: Steroid taper: will decrease to 30 mg as of 04/12.��Slow taper;
�- Pulm evaluation as noted above.
Chronic HFpEF
�- Stable.� No evidence of significant hypervolemia on exam.
�- Hold Lasix acutely and follow I/Os, daily weights, etc.
�- Restart usual diuretic regimen when appropriate.
�- Weight today decreased from discharge.
GURPREET
�- SCr = 1.8 compared to prior baseline of 0.9.
-Improved with holding diuretics; IVF
�- Suspect hypovolemia due to diuretic dosing given decrease in weight, etc.
�-resume diuretics when stable
Paroxysmal Atrial Fibrillation
�- Stable.� Continue metoprolol for rate control.
�- Hold Eliquis acutely in the vent that invasive procedure / intervention is required. ctm
ASCVD
�- No new EKG changes concerning for active ischemia.
�- Chest pain seems clearly related to newly appreciated pneumomediastinum.
�- Follow serial troponin and monitor for any new/ worsening symptoms.
�- Continue CV med regimen.
�- Change Plavix to ASA acutely in the event that any invasive procedure is needed.
Hypotension
�- Stable at present.� Continue midodrine with holding parameters.
GERD / Duodenal Ectasia
�- Stable.� No evidence of recurrent bleeding.
�- s/p cautery 12/2022.
�- Continue PPI - especially while on PO steroids.
DM-II, Steroid-Induced
�- Stable.� Continue basal insulin.
�- Follow glucose and cover with SSI as needed.
�- Recent A1C was 5.5%.
DVT Prophylaxis:� SCDs while Eliquis on hold.
Code Status:� Full
Total time spent on today's encounter was 52 minutes which included time spent in counseling the patient/family regarding diagnosis and treatment plan as listed above, goals of care, and symptom management. Case was discussed with nursing staff,
specialists, and care coordinators/case management. All labs and imaging personally reviewed by me. Remainder the time spent in detailed review of previous records, lab data, imaging, and other medical provider documentation.
Anticipated Discharge: 24 - 48 hours
Subjective/Interval History
-
Date of Service: April 08, 2023
pain has improved
Objective Data
-
Labs:
Laboratory Results
04/08/23
04:52
WBC 10.9 H
Hgb 9.0 L
Hct 27.0 L
Plt Count 129 L
Sodium 136
Potassium 4.2
Chloride 94 L
Carbon Dioxide 36 H
BUN 44 H
Creatinine 0.9
Glucose 109 H
Calcium 8.7
Vital Signs:
Vital Signs
Temp Pulse Resp BP Pulse Ox
97.7 F 106 23 107/60 99
04/08/23 11:00 04/08/23 10:00 04/08/23 10:00 04/08/23 10:00 04/08/23 11:57
I&O
04/07/23 04/08/23 04/09/23
06:59 06:59 06:59
Intake Total 1750 / 1750 200 / 200
Output Total 825 / 825
Balance 925 / 925 200 / 200
Review of Systems
-
History Source: Patient
All other systems: Not reviewed unless documented
Data Reviewed
-
Diagnostic Radiology: Image personally visualized and interpreted and Report Reviewed by me
Labs: Labs Reviewed by me
[2023-04-08] MEDS: NOVOLOG FLEXPEN-LOW RESISTANCE 1 UNITS SC ×2 (13:25→17:28)
[2023-04-08 13:33] LABS: Glucose - Point of Care 151 mg/dl (70-99)
--- NOTE | 2023-04-08 16:17 | CHAP ---
Ms. Valdovinos was experiencing some pain, but her beautiful spirit came shining through. She smiled, and asked for prayer, which we said together. I offered emotional and spiritual support.
[2023-04-08 17:03] LABS: Glucose - Point of Care 199 mg/dl (70-99)
[2023-04-08] MEDS: LANTUS 0.119999999999999996 UNITS SC (18:20)
--- NOTE | 2023-04-08 20:23 | PTCARENOTE ---
Received pt from lizette RN. Pt sitting on the side of the bed. Pt is AAOx3. Afib on the monitor. On 2L NC O2 sat 98%, lungs diminished/crackles. Assisted to BSCx1. VSS. Pt is laying comfortable in bed with call lorenzana in reach.
[2023-04-08] MEDS: SENOKOT-S 1 TABLET PO (20:27)
[2023-04-08 22:29] LABS: Glucose - Point of Care 252 mg/dl (70-99)
[2023-04-09] VITALS (12 sets, daily range): BP systolic 91–141; BP diastolic 45–97; BMI 23.3
[2023-04-09] MEDS: ProAmatine 5 MG PO ×3 (00:05→18:00)
--- NOTE | 2023-04-09 03:34 | PTCARENOTE ---
Pt OOBx1 to the BSC, HR increases with activity (HR 150).
[2023-04-09 04:15] LABS: Hematocrit 29.1 % (37.0-47.0); Hemoglobin 9.8 g/dL (12.0-16.0); Mean Corp Hgb Conc. 33.7 g/dL (33.0-37.0); Mean Corpuscular Hgb 32.7 pg (27.0-31.0); Mean Platelet Volume 10.7 fL (7.4-10.4); Platelet Count 144 10^3/uL (130-400); Red Cell Dist. Width 16.9 % (11.5-14.5); White Blood Cell Count 13.3 10^3/uL (4.8-10.8)
[2023-04-09 04:37] LABS: Blood Urea Nitrogen 40 mg/dl (7-17); Carbon Dioxide 40 mmol/L (22-30); Chloride 93 mmol/L (98-107); Estimated Creatinine Clearance 31 ml/min; Glucose 80 mg/dl (70-99); Potassium 4.4 mmol/L (3.5-5.1); Sodium 135 mmol/L (135-145); eGFR 55.21
[2023-04-09 07:44] LABS: Glucose - Point of Care 60 mg/dl (70-99)
[2023-04-09] MEDS: NOVOLOG FLEXPEN-LOW RESISTANCE SC (07:52)
[2023-04-09 08:06] LABS: Glucose - Point of Care 62 mg/dl (70-99)
[2023-04-09] MEDS: DELTASONE 40 MG PO (08:13)
[2023-04-09] MEDS: LOW STRENGTH ASPIRIN 81 MG PO (08:14)
[2023-04-09] MEDS: MYCOSTATIN ORAL SUSPENSION 5 ML PO ×4 (08:15→22:47)
[2023-04-09] MEDS: PROTONIX IV 40 MG IV (08:18)
[2023-04-09] MEDS: NSS (PRESERVATIVE FREE) 10 ML IV (08:19)
[2023-04-09] MEDS: TOPROL XL 25 MG PO (08:19)
[2023-04-09] MEDS: SENOKOT-S 1 TABLET PO ×2 (08:19→19:25)
[2023-04-09 08:25] LABS: Glucose - Point of Care 101 mg/dl (70-99)
[2023-04-09 11:29] LABS: Glucose - Point of Care 227 mg/dl (70-99)
[2023-04-09] MEDS: INVANZ 60 MG IV (11:59)
[2023-04-09] MEDS: NOVOLOG FLEXPEN-LOW RESISTANCE 2 UNITS SC ×2 (12:50→18:19)
--- NOTE | 2023-04-09 12:54 | W.PN.PUL3 ---
Today's Communication / Plan
-
O2
Slow pred taper
Assessment
-
83-year-old female with recent hospital stay, VDRF, ILD flare, discharged 03/30/2023 to rehabilitation, now presents with acute onset chest discomfort. CT imaging revealed pneumomediastinum. We are asked to comment on pulmonary process. Of note,
patient denies any trauma, falls, emesis.
Acute pneumomediastinum
Acute onset chest pain 04/05, now resolved
Interstitial lung disease with recent ILD flare
History of steroid use in the past
Discharged on prednisone taper, 50 mg 03/30/2023
VDRF, extubated 03/11/2023
Discharge 03/30/2023
E coli UTI
Conditions present prior to admission
History of heart failure
History of COVID-pneumonia December 2022
History of pulmonary fibrosis
Followed by Dr. Adame as op
History of GI bleed
Duodenal ectasia
Schatzki's ring GE junction 12/17/2022
Scoliosis
Atrial fibrillation on amiodarone, apixaban
CAD, multiple stents, last 11-11-22 (one stent at [place]), on plavix
Aortic stenosis, mitral regurgitation
Hypertension/hyperlipidemia
Fibromyalgia
GERD/hiatal hernia
Diverticulitis, IBS
History of recurrent UTIs
History of appendectomy,D&C, hysterectomy, Tonsillectomy, Hernia repair
Lifelong non-smoker
DNR per prior hospital stay
Plan/Recommendations
CT imaging with pneumomediastinum
CT esophagram without any evidence of leakage
Hemoglobin drop noted, 8.4, was 11.81
Patient with baseline interstitial lung disease, on chronic steroid therapy
Patient describes worsening constipation over the past few weeks, significant bearing down (more than usual per pt)
Denies nausea, emesis
Avoid positive pressure ventilation, NIV
Unfortunately, patient is on chronic steroids after recent prolonged hospital stay being tapered, currently on 40 mg prednisone
No changes for now but will consider coming down as this will increase risk for persistent air leak
Unfortunately will require slow taper, currently at 40 mg qd since 04-06
Patient aware that shortness of breath will be chronic, has end-stage lung disease, chronic interstitial disease, she understands
Started bowel regimen, stool softener
There is no clear history of emesis, nausea arguing against esophageal perforation
Chest x-ray 04-08 reviewed, marked improvement of pneumomediastinum
Continue oxygen therapy
Patient on 2 L at this time, adequate oxygenation, POx high 90s at rest
E coli UTI, currently on ertapenem since 04-09
Reviewed extensive records from recent hospital stay
Extensive discussions with family, family had decided at one point to not pursue tracheotomy, DNR status noted
DVT prophylaxis: Sequential teds, consider adding pharmacological prophylaxis. Patient was on Eliquis as outpatient. Okay to resume from pulmonary standpoint
GI prophylaxis: Continue pantoprazole
Okay to advance diet from pulmonary standpoint
D/w Mrs Valdovinos and her daughter at bedside 04-08
Subjective Data
-
Date of Service:
Date of Service: April 09, 2023
Chief Complaint: Pulmonary Follow Up
Subjective:
No major events reported overnight
Remains on low-flow oxygen
Denies major respiratory complaints at this point in time
Review of Systems
General: Fever (n), Sweats (n), Chills and Satisfactory Appetite
HEENT: Dysphagia (n)
Cardiopulmonary: Dyspnea (n at rest on O2), Cough (n), Wheezing (n), Chest Pain (n) and Hemoptysis (n)
GI: Abdominal Pain (n), Nausea (n) and Vomiting (n)
Neuro: Weakness
Objective Data
Data Reviewed
Vital Signs / I&O / Oxygen:
Vital Signs
Temp Pulse Resp BP Pulse Ox
98.6 F 88 15 114/76 98
04/09/23 11:26 04/09/23 12:00 04/09/23 12:00 04/09/23 12:00 04/09/23 12:28
Intake and Output
04/08/23 04/09/23 04/10/23
06:59 06:59 06:59
Intake Total 200 / 200 100 / 100 240 / 240
Balance 200 / 200 100 / 100 240 / 240
SaO2 98
Nasal Cannula flow liters per 2
minute
Physical Exam
General: Comfortable
HEENT: Normocephalic and Anicteric
Cardiovascular: S1-S2, Regular Rhythm, Murmur (n), Peripheral Edema (n) and Calf Tenderness (n)
Respiratory: Wheeze (n), Crackles (Bilateral posterior), Rhonchi (n), Non-Labored Respirations, Stridor (n), Crepitus (n) and Other (no sc emphysema)
GI: Soft, Non Distended, Non Tender and Normal Bowel Sounds
Neurology: Awake, Alert and No Motor Deficits
Skin: Cyanosis (n), Jaundice (n) and Rash (n)
Labs/Micro/Reports
Lab Data
04/09/23 03:28
04/09/23 03:28
Microbiology
04/06/23 00:26 Urine Urine Culture - Final
Escherichia coli - ESBL
04/06/23 06:50 Nose MRSA Screen - Final
No Methicillin Resistant Staphylococcus aureus isolated.
--- NOTE | 2023-04-09 13:45 | W.PN.HOSP.TC ---
Addendum entered and electronically signed by Anderson Hdez MD 04/20/23 15:55:
Hypokalemia - monitor and replete
Addendum entered and electronically signed by Anderson Hdez MD 04/09/23 14:04:
#ESBL UTI
� Complains of malodorous urine
� Started on ertapenem
� ID consulted
Original Note:
Today's Communication/Plan
-
resume eliquis
resume plavix , stop asa
CT chest improved pneumomediastinum
steroid taper
Tentative DC in 24 hours
Assessment / Plan
Assessment / Plan
Physical Exam
General: Other (83y F in no acute distress at present.)
HEENT: Moist mucous membranes and PERRLA
Respiratory: Other (crackles throughout b/l lung pickering.� No wheezing.� )
Cardiac: S1/S2, Irregular Rhythm and Murmur (II/ BRAD)
GI: Soft, Non Tender, Non Distended and Normal Bowel Sounds
Musculoskeletal: No Clubbing, No Cyanosis and Other (1+ pitting edema b/l ankles)
Neuro: AO x 3
A/P:� Patient is an 83y F with PMH significant for ILD / pulm fibrosis, ASCVD, A-Fib and recent hospitalization for respiratory failure including intubation / ventilation who presents to ED from SNF complaining of chest pain.
Chest Pain
Pneumomediastinum
�- Patient s/p recent mechanical ventilation (03/05/23 - 03/11/23).
�- No fall / injury / trauma.
�- No leak on CT Imaging
�- CT Surgery evaluation - treatment will remain supportive.
- CXR F/u
-Appreciate Pulm and CTS recs
-Repeat CT showing decreased pneumomediastinum
ILD / Pulmonary Fibrosis / Bronchiectasis
Chronic Hypoxemic Respiratory Failure
�- Patient discharged on 2 lpm of supplemental O2 in the past
�- Continues with adequate oxygenation on this rate.
�- No new fevers / chills, increased cough, etc.
�- Continue current prednisone dosing / taper.
-Pulm following taper: Steroid taper: will decrease to 30 mg as of 04/12.��Slow taper;
�- Pulm evaluation as noted above.
Chronic HFpEF
�- Stable.� No evidence of significant hypervolemia on exam.
�- Hold Lasix acutely and follow I/Os, daily weights, etc.
�- Restart usual diuretic regimen when appropriate.
�- Weight today decreased from discharge.
GURPREET
�- SCr = 1.8 compared to prior baseline of 0.9.
-Improved with holding diuretics; IVF
�- Suspect hypovolemia due to diuretic dosing given decrease in weight, etc.
�-resume diuretics when stable
Paroxysmal Atrial Fibrillation
�- Stable.� Continue metoprolol for rate control.
�- can resume eliquis - anticipate on procedure
ASCVD
�- No new EKG changes concerning for active ischemia.
�- Chest pain seems clearly related to newly appreciated pneumomediastinum.
�- Follow serial troponin and monitor for any new/ worsening symptoms.
�- Continue CV med regimen.
-switch back to plavix
Hypotension
�- Stable at present.� Continue midodrine with holding parameters.
GERD / Duodenal Ectasia
�- Stable.� No evidence of recurrent bleeding.
�- s/p cautery 12/2022.
�- Continue PPI - especially while on PO steroids.
DM-II, Steroid-Induced
�- Stable.� Continue basal insulin.
�- Follow glucose and cover with SSI as needed.
�- Recent A1C was 5.5%.
DVT Prophylaxis:� Eliquis
Code Status:� Full
Anticipated Discharge: Within 24 hours
Subjective/Interval History
-
Date of Service: April 09, 2023
Patient has having increased pain rating to the jaw like previously today
Objective Data
-
Labs:
Laboratory Results
04/09/23
03:28
WBC 13.3 H
Hgb 9.8 L
Hct 29.1 L
Plt Count 144
Sodium 135
Potassium 4.4
Chloride 93 L
Carbon Dioxide 40 H
BUN 40 H
Creatinine 1.0
Glucose 80
Calcium 9.0
Vital Signs:
Vital Signs
Temp Pulse Resp BP Pulse Ox
98.6 F 88 15 114/76 98
04/09/23 11:26 04/09/23 12:00 04/09/23 12:00 04/09/23 12:00 04/09/23 12:28
I&O
04/08/23 04/09/23 04/10/23
06:59 06:59 06:59
Intake Total 200 / 200 100 / 100 240 / 240
Balance 200 / 200 100 / 100 240 / 240
Review of Systems
-
History Source: Patient
All other systems: Not reviewed unless documented
Physical Exam
-
General: Well Developed, Well Nourished, Respiratory Distress, Conversant and Appears Chronically Ill
HEENT: Normocephalic, Atraumatic, Moist Mucous Membranes and Oxygen (2L NC)
Respiratory: Clear to Auscultation, Non Labored Respirations and Other (harsh breath sounds); Negative Accessory Resp Muscle Use
Cardiac: Regular Rhythm and S1/S2
GI: Soft, Nontender, Nondistended and Normal Bowel Sounds; Negative Organomegaly
Rectal: Deferred by Provider
Musculoskeletal: No Clubbing and No Cyanosis
Neuro: Awake and Alert
Psych: Calm and Intact Judgement/Insight
Data Reviewed
-
Diagnostic Radiology: Image personally visualized and interpreted and Report Reviewed by me
Labs: Labs Reviewed by me
--- NOTE | 2023-04-09 14:34 | CON.ID ---
Consultation
-
Date/Time Consultation Requested: April 09, 2023 1100
Date/Time Consultation Performed: April 09, 2023 1430
Requesting Provider: Dr. Anderson Hdez
Performing Provider: Dr. Dorothy Meek
Reason for Consultation: Foul smelling urine
Chief Complaint / Past History
Chief Complaint
Chest pain
History of Present Illness
83-year-old female with history of interstitial lung disease, bronchiectasis, heart failure with preserved EF, atrial fibrillation, CAD, who was recently hospitalized from February 27-March 30 with respiratory failure, requiring mechanical
ventilation from March 05 to March 11. She was eventually discharged to rehab on 2 L of nasal cannula and prednisone. She presented back to the hospital on April 05 due to chest pain x [address] of the chest abdomen pelvis showed extensive
pneumomediastinum which is being managed conservatively. Patient admission urine culture came back as ESBL E. coli which prompted this consult. Patient denies urinary urgency or dysuria. She has some suprapubic discomfort. No flank pain.
Past History
Additional Past Medical History:
Interstitial lung disease/bronchiectasis
VDRF (03/05/23 to 03/11/23)
Atrial fibrillation
Heart failure with preserved EF
CAD status post stent
Aortic stenosis
Hypertension
History of GI bleed
Fibromyalgia
Sleep apnea
Appendectomy
Hernia repair
Allergy History:
codeine [Codeine] Allergy (Verified 01/16/23 07:53)
Rash
ethyl alcohol Allergy (Verified 01/16/23 07:53)
CHEMICAL SENSITIVITY
formaldehyde Allergy (Verified 01/16/23 07:53)
chemical sensitivity- allergy attack, dry eyes, wheezing
glycerin Allergy (Verified 01/16/23 07:53)
CHEMICAL SENSITIVITY
guaifenesin [From Mucinex] Allergy (Verified 01/16/23 07:53)
Hives
Iodinated Contrast Media [Iodinated Contrast Media - IV Dye] Allergy (Verified 01/16/23 07:53)
Rash/hives
morphine Allergy (Verified 01/16/23 07:53)
DECREASED HR
oxycodone HCl [From Percocet] Allergy (Verified 01/16/23 07:53)
Hives
Sulfa (Sulfonamide Antibiotics) Allergy (Verified 01/16/23 07:53)
throat closes
muscle relaxers Allergy (Uncoded 01/16/23 07:53)
Hyper/tired
seasonal Allergy (Uncoded 01/16/23 07:53)
nasal congestion/wheeze
Medications Reviewed: Yes
Current Antibiotics:
Ertapenem d1
Social History
Tobacco: Non-Smoker
Alcohol: None
Drug: None
Family History
Family History: Not Pertinent
Review of Systems
Review of Systems
General: Change in Appetite; Negative Fever or Chills
Respiratory: Negative Dyspnea or Cough
Gasteroenterology: Negative Nausea or Vomiting
Endocrine: Weakness
Skin / Hair / Nails: Negative Rash
Neurological: Negative Headache or Dizziness
All systems: All other systems were reviewed and were negative
Vital Signs
Temp Pulse Resp BP Pulse Ox
98.6 F 88 15 114/76 98
04/09/23 11:26 04/09/23 12:00 04/09/23 12:00 04/09/23 12:00 04/09/23 12:28
Physical Exam
Physical Exam
Constitutional: Comfortable and Non-toxic
Cardiovascular: Regular Rate and S1/S2
Pulmonary: Coarse ( coarse crackles bilaterally)
Gastrointestinal: Soft, Non Tender and Non Distended
Genito-Urinary: Suprapubic Tenderness (mild); Negative CVA Tenderness
Extremities: Negative Edema
Neurological: AO x 3
Lab / Diagnostic Study Results
04/09/23 03:28
04/09/23 03:28
Abs Immat Gran (auto) 0.1 10^3/uL (0-0.05) H 04/08/23 04:52
Absolute Neuts (auto) 9.6 10^3/uL (1.4-6.5) H 04/08/23 04:52
Absolute Lymphs (auto) 0.7 10^3/uL (1.2-3.4) L 04/08/23 04:52
Absolute Monos (auto) 0.5 10^3/uL (0.1-0.6) 04/08/23 04:52
Absolute Basos (auto) 0.0 10^3/uL (0-0.2) 04/08/23 04:52
Immature Gran % 0.6 % (0-0.5) H 04/08/23 04:52
Neutrophils % 88.1 % (42.2-75.2) H 04/08/23 04:52
Lymphocytes % 6.3 % (20.5-51.1) L 04/08/23 04:52
Monocytes % 4.9 % (1.7-9.3) 04/08/23 04:52
Eosinophils % 0.0 % (0-6) 04/08/23 04:52
Basophils % 0.1 % (0-2) 04/08/23 04:52
Ur Squamous Epith Cells >30 /LPF (Few) 04/06/23 00:26
Microbiology Results
Micro:
04/06/23 00:26 Urine Culture - Final
Urine Escherichia coli - ESBL
04/06/23 06:50 MRSA Screen - Final
Nose No Methicillin Resistant Staphylococcus aureus isolated.
04/09/[address]: No findings to suggest oral contrast within the esophagus or mediastinum. Extensive pneumomediastinum again seen.
04/06/[address]: Large amount of pneumomediastinum. Air tracks into the lower neck and left subclavian region. Tiny amount of air within the left anterior pleural space. Overall, findings are likely related to alveolar rupture/barotrauma. Severe
interstitial fibrosis, grossly unchanged compared to recent prior study dated 03/18/2023.
04/06/23 CT a/p: Cardiomegaly with marked pneumomediastinum, small volume air about the distal esophagus and small left-sided subcutaneous emphysema. Findings could be on the basis of barotrauma. Perforated esophagus less likely. Colonic
diverticulosis. No findings to suggest obstructive uropathy bilaterally.
Assessment / Plan
# Uncomplicated ESBL-E.coli UTI
- DC ertapenem (day 1)
- Tomorrow give 1 dose of fosfomycin.
# Leukocytosis
- Steroid effect
ID will sign off.
[2023-04-09 15:18] LABS: Glucose - Point of Care 232 mg/dl (70-99)
[2023-04-09 16:34] LABS: Glucose - Point of Care 244 mg/dl (70-99)
[2023-04-09] MEDS: PLAVIX 75 MG PO (18:00)
[2023-04-09] MEDS: LANTUS 0.119999999999999996 UNITS SC (18:19)
--- NOTE | 2023-04-09 18:30 | PTCARENOTE ---
Patient very weak today, dyspnea with exertion, CT scan completed. Urine cultures positive, purewick placed for accurate output. Patient has fair appetite, Ensure shake with breakfast. Antibiotics administerd.
[2023-04-09] MEDS: ELIQUIS 2.5 MG PO (19:25)
--- NOTE | 2023-04-09 20:06 | PTCARENOTE ---
Received pt from dayshift RN. Assisted pt to BSCx1, pt BEE and LE weakness. Pw removed. On 2L NC O2 sat 96%, lungs diminished/crackles. VSS. Pt is laying comfortable in bed with call lorenzana in reach.
[2023-04-09 22:41] LABS: Glucose - Point of Care 213 mg/dl (70-99)
[2023-04-10] VITALS (13 sets, daily range): BP systolic 96–124; BP diastolic 49–91; PULSE 90–160; O2SAT 96–997; BMI 23.5
[2023-04-10] MEDS: ProAmatine PO ×3 (00:03→07:54)
[2023-04-10 03:53] LABS: Hematocrit 30.1 % (37.0-47.0); Hemoglobin 9.9 g/dL (12.0-16.0); Mean Corp Hgb Conc. 32.9 g/dL (33.0-37.0); Mean Corpuscular Hgb 33.3 pg (27.0-31.0); Mean Corpuscular Volume 101.3 fL (81.0-99.0); Mean Platelet Volume 10.8 fL (7.4-10.4); Platelet Count 116 10^3/uL (130-400); Red Blood Cell Count 2.97 10^6/uL (4.20-5.40); Red Cell Dist. Width 16.5 % (11.5-14.5); White Blood Cell Count 10.4 10^3/uL (4.8-10.8)
[2023-04-10 04:15] LABS: ALT (SGPT) 32 U/L (0-35); AST (SGOT) 31 U/L (14-36); Albumin 2.7 g/dl (3.5-5.0); Alkaline Phosphatase 115 U/L (38-126); Blood Urea Nitrogen 30 mg/dl (7-17); Calcium 8.5 mg/dl (8.4-10.2); Carbon Dioxide 40 mmol/L (22-30); Chloride 94 mmol/L (98-107); Estimated Creatinine Clearance 39 ml/min; Glucose 110 mg/dl (70-99); Potassium 4.8 mmol/L (3.5-5.1); Sodium 132 mmol/L (135-145); Total Bilirubin 1.2 mg/dl (0.2-1.3); eGFR > 60.00
[2023-04-10] MEDS: NOVOLOG FLEXPEN-LOW RESISTANCE SC ×2 (07:50→13:54)
[2023-04-10] MEDS: DELTASONE 40 MG PO (07:51)
[2023-04-10] MEDS: TOPROL XL 25 MG PO (07:51)
[2023-04-10] MEDS: SENOKOT-S 1 TABLET PO ×2 (07:51→20:31)
[2023-04-10] MEDS: ELIQUIS 2.5 MG PO ×2 (07:51→20:31)
[2023-04-10] MEDS: MYCOSTATIN ORAL SUSPENSION 5 ML PO ×4 (07:51→21:35)
[2023-04-10] MEDS: PLAVIX 75 MG PO (07:51)
[2023-04-10] MEDS: PROTONIX IV 40 MG IV (07:52)
[2023-04-10] MEDS: NSS (PRESERVATIVE FREE) 10 ML IV (07:52)
--- NOTE | 2023-04-10 07:52 | W.PN.HOSP.TC ---
Today's Communication/Plan
-
see A/P
Assessment / Plan
Assessment / Plan
HPI: Patient is an 83y F with PMH significant for ILD / pulm fibrosis, ASCVD, A-Fib and recent hospitalization for respiratory failure including intubation / ventilation who presented to ED from SNF complaining of chest pain.
A/P :
# Chest Pain
# Pneumomediastinum
Patient s/p recent mechanical ventilation (03/05/23 - 03/11/23).
No fall / injury / trauma.
CT imaging with pneumomediastinum
CT esophagram without any evidence of leakage
CT surgery evaluation - treatment will remain supportive.
Appreciate Pulm and CTS recs
Repeat CT showing decreased pneumomediastinum
# ESBL E coli UTI
s/p ertapenem, fosfomycin x1 dose
Appreciate ID input
# ILD / Pulmonary Fibrosis / Bronchiectasis
# Chronic Hypoxemic Respiratory Failure
Patient was discharged on 2 L of supplemental O2, continue with adequate oxygenation on this rate.
Continue current prednisone dosing / taper: decrease 10 mg every week (slow taper), start 30 mg as of 04/12.�
Pulm evaluation as noted above.
# Chronic HFpEF, stable.�
No evidence of significant hypervolemia on exam.
resume PO Lasix once daily (HOCKEY PLAYER BID)
follow I/Os, daily weights, etc.
# Resolved GURPREET
SCr 1.8 -> 0.8 (baseline of 0.9).
resume PO Lasix once daily (HOCKEY PLAYER BID)
# Paroxysmal Atrial Fibrillation�- Stable.�
Continue metoprolol for rate control.
Cont HOCKEY PLAYER eliquis
# Hypotension- Stable at present.�
Continue midodrine with holding parameters.
# GERD / Duodenal Ectasia, Stable.� No evidence of recurrent bleeding.
s/p cautery 12/2022.
Continue PPI - especially while on PO steroids.
# DM-II, Steroid-Induced�- Stable.�
hypoglycemia noted.
Decrease Basal insulin from 12 to 5 units HS.
Follow glucose and cover with SSI as needed.
Recent A1C was 5.5%.
# hyponatremia
DVT Prophylaxis:� Eliquis
Code Status:� Full
DW RN
updated daughter Estuardo on the phone
Anticipated Discharge: 24 - 48 hours
Subjective/Interval History
-
Date of Service: April 10, 2023
Objective Data
-
Labs:
Laboratory Results
04/10/23
03:39
WBC 10.4
Hgb 9.9 L
Hct 30.1 L
Plt Count 116 L
Sodium 132 L
Potassium 4.8
Chloride 94 L
Carbon Dioxide 40 H
BUN 30 H
Creatinine 0.8
Glucose 110 H
Calcium 8.5
Total Bilirubin 1.2
AST 31
ALT 32
Alkaline Phosphatase 115
Vital Signs:
Vital Signs
Temp Pulse Resp BP Pulse Ox
36.6 C 80 14 108/53 95
04/10/23 03:26 04/10/23 06:00 04/10/23 06:00 04/10/23 06:00 04/10/23 06:00
I&O
04/09/23 04/10/23 04/11/23
06:59 06:59 06:59
Intake Total 100 / 100 800 / 800
Output Total 225 / 225
Balance 100 / 100 575 / 575
Review of Systems
-
All other systems: Reviewed and negative
Physical Exam
-
General: Well Developed, Well Nourished, Respiratory Distress (chronic), Conversant and Appears Chronically Ill
HEENT: Normocephalic, Atraumatic, Moist Mucous Membranes and Oxygen (2L NC)
Respiratory: Clear to Auscultation, Non Labored Respirations and Other (harsh breath sounds); Negative Accessory Resp Muscle Use
Cardiac: Regular Rhythm and S1/S2
GI: Soft, Nontender, Nondistended and Normal Bowel Sounds; Negative Organomegaly
Rectal: Deferred by Provider
Musculoskeletal: No Clubbing and No Cyanosis
Neuro: Awake and Alert
Psych: Calm and Intact Judgement/Insight
Data Reviewed
-
CT Scan: Report Reviewed by me
Labs: Labs Reviewed by me
[2023-04-10 07:57] LABS: Glucose - Point of Care 58 mg/dl (70-99)
[2023-04-10 08:28] LABS: Glucose - Point of Care 91 mg/dl (70-99)
--- NOTE | 2023-04-10 08:57 | W.PN.PUL3 ---
Today's Communication / Plan
-
O2
Pred taper
AC
Assessment
-
83-year-old female with recent hospital stay, VDRF, ILD flare, discharged 03/30/2023 to rehabilitation, now presents with acute onset chest discomfort. CT imaging revealed pneumomediastinum. We are asked to comment on pulmonary process. Of note,
patient denies any trauma, falls, emesis.
Acute pneumomediastinum
Acute onset chest pain 04/05, now resolved
Interstitial lung disease with recent ILD flare
History of steroid use in the past
Discharged on prednisone taper, 50 mg 03/30/2023
VDRF, extubated 03/11/2023
Discharge 03/30/2023
E coli UTI
Conditions present prior to admission
History of heart failure
History of COVID-pneumonia December 2022
History of pulmonary fibrosis
Followed by Dr. Adame as op
History of GI bleed
Duodenal ectasia
Schatzki's ring GE junction 12/17/2022
Scoliosis
Atrial fibrillation on amiodarone, apixaban
CAD, multiple stents, last 11-11-22 (one stent at [place]), on plavix
Aortic stenosis, mitral regurgitation
Hypertension/hyperlipidemia
Fibromyalgia
GERD/hiatal hernia
Diverticulitis, IBS
History of recurrent UTIs
History of appendectomy,D&C, hysterectomy, Tonsillectomy, Hernia repair
Lifelong non-smoker
DNR per prior hospital stay
Plan/Recommendations
CT imaging with pneumomediastinum
CT esophagram without any evidence of leakage
Hemoglobin drop noted, 8.4, was 11.81
Patient with baseline interstitial lung disease, on chronic steroid therapy
Patient describes worsening constipation over the past few weeks, significant bearing down (more than usual per pt)
Denies nausea, emesis
Avoid positive pressure ventilation, NIV
Unfortunately, patient is on chronic steroids after recent prolonged hospital stay being tapered, currently on 40 mg prednisone
No changes for now but will consider coming down as this will increase risk for persistent air leak
Unfortunately will require slow taper, currently at 40 mg qd since 04-06, taper by 10 mg every one week and keep at 10 mg qd till seen at office by Dr Adame
Patient aware that shortness of breath will be chronic, has end-stage lung disease, chronic interstitial disease, she understands
Started bowel regimen, stool softener
There is no clear history of emesis, nausea arguing against esophageal perforation
Chest x-ray 04-08 reviewed, marked improvement of pneumomediastinum
Chest CT 04-09 c/w 01: to my review, improved pneumomediastinum (no change per radiology report)
Continue oxygen therapy
Patient on 2 L at this time, adequate oxygenation, POx 95% at rest
E coli UTI, on ertapenem since 04-09, transition to fosfomycin as rec by ID
Reviewed extensive records from recent hospital stay
Extensive discussions with family, family had decided at one point to not pursue tracheotomy, DNR status noted
DVT prophylaxis: Patient was on Eliquis as outpatient, resumed
GI prophylaxis: Continue pantoprazole
D/w Mrs Valdovinos and her daughter at bedside 04-08
D/w Mrs Valdovinos on a daily basis
Subjective Data
-
Date of Service:
Date of Service: April 10, 2023
Chief Complaint: Pulmonary Follow Up
Subjective:
No major events reported overnight
Continues on low flow O2, saturating well at rest
Review of Systems
General: Fever (n), Sweats (n), Chills (n) and Satisfactory Appetite
HEENT: Dysphagia (n)
Cardiopulmonary: Dyspnea (n at rest on O2), Cough (trace), Sputum Production (n) and Wheezing (n)
GI: Abdominal Pain (n), Nausea (n) and Vomiting (n)
Neuro: Weakness
Objective Data
Data Reviewed
Vital Signs / I&O / Oxygen:
Vital Signs
Temp Pulse Resp BP Pulse Ox
97.8 F 112 25 124/81 95
04/10/23 03:26 04/10/23 08:00 04/10/23 08:00 04/10/23 07:54 04/10/23 08:41
Intake and Output
04/09/23 04/10/23 04/11/23
06:59 06:59 06:59
Intake Total 100 / 100 800 / 800
Output Total 225 / 225
Balance 100 / 100 575 / 575
SaO2 95
Nasal Cannula flow liters per 2
minute
Physical Exam
General: Comfortable
HEENT: Normocephalic, Anicteric and Moist Mucous Membranes
Cardiovascular: S1-S2, Regular Rhythm, Murmur (n), Peripheral Edema (n) and Calf Tenderness (n)
Respiratory: Wheeze (n), Crackles (Bilateral posterior), Rhonchi (n), Non-Labored Respirations, Stridor (n), Crepitus (n) and Other (no sc emphysema)
GI: Soft, Non Distended, Non Tender and Normal Bowel Sounds
Neurology: Awake, AO x 3 and No Motor Deficits
Skin: Cyanosis (n), Jaundice (n) and Rash (n)
Labs/Micro/Reports
Lab Data
04/10/23 03:39
04/10/23 03:39
Microbiology
04/06/23 00:26 Urine Urine Culture - Final
Escherichia coli - ESBL
04/06/23 06:50 Nose MRSA Screen - Final
No Methicillin Resistant Staphylococcus aureus isolated.
--- NOTE | 2023-04-10 10:23 | WOUNDNOTE ---
WON RN note: Patient admitted with Acute renal insufficiency, UTI and Pneumomediastinum.
See H&P for complete history.
PMH: a fib, CHF, CAD s/p stent, anemia, sleep apnea, fibromyalgia, ILD, pulmonary fibrosis, PI gluteal cleft stage 3.
Wound Location and type/assessment: Patient last seen on 03/30/23 for stage 3 gluteal cleft PI. Patient reports honey gel dressing being used. Stage 3 gluteal cleft PI wound less deep compared to last seen, however still with moderate amt. of slough
at base. Periwound blanchable red with mild MASD. Heels blanchable and intact.
Appetite: Low cholesterol diet currently.
Pressure redistribution devices in place: [facility] air bed, nurse aware if patient transferred to floor, make sure patient will be on an air mattress, ie; versa care air. Air chair cushion in use for chair.
Plan: Continue Sacral Silicone foam to protect, change gluteal cleft dressing daily using Santyl, adaptic gauze and paper tape. Heels offloaded with pillow under calves, patient can turn self in bed.
Will confirm orders with hospitalist and discussed wound care plan with ANNETTE Murrell.
Care plan to be updated and will follow as needed.
Note to case management of equipment requested for discharge: Air mattress if returning to SNF.
[2023-04-10 10:47] LABS: Glucose - Point of Care 104 mg/dl (70-99)
[2023-04-10] MEDS: MONUROL 3 GM PO (11:00)
[2023-04-10] MEDS: LASIX 40 MG PO (11:00)
--- NOTE | 2023-04-10 12:40 | CM ---
Addendum entered by Leticia Salgado RN 04/10/23 15:16:
Spoke with [facility]; they are able to accept the patient tomorrow. Updated referral in [facility] with wound care notes, wound care orders, air mattress order, microbiology report as requested. Liliane made aware patient in Contact
Precautions. The ph for report [phone], fax [phone]. She is speaking to daughter by phone today.
Plan [facility] tomorrow.
Original Note:
Patient from [facility] with Dx Acute pneumomediastinum, UTI. O2 2L. PT & OT 04/10 recommend skilled rehab. Wound care nurse consult pending.
Spoke with [facility]; she will consider this patient. She would like to see the wound care nurse notes indicating her wound care needs.
Spoke with Estuardo,daughter in [place] who is POA; Provided update no accepting SNFs, and that [facility] is interested in talking with her.
Plan update [facility] with wound care notes for [facility].
Plan follow up with [facility] for acceptance.
[2023-04-10] MEDS: SANTYL OINTMENT 1 APPLIC TOPICAL (13:52)
[2023-04-10 14:04] LABS: Glucose - Point of Care 160 mg/dl (70-99)
[2023-04-10] MEDS: ProAmatine 5 MG PO ×2 (17:27→23:27)
--- NOTE | 2023-04-10 17:47 | PTCARENOTE ---
pt downgraded to med surg. report given to Emely on .
[2023-04-10] MEDS: NOVOLOG FLEXPEN-LOW RESISTANCE 1 UNITS SC (17:58)
[2023-04-10 18:04] LABS: Glucose - Point of Care 199 mg/dl (70-99)
--- NOTE | 2023-04-10 20:19 | PTCARENOTE ---
Resting HR 100-s-110's. Pt complained of headache. VSS. Pt stated, 'When my sugar is high, I start to not feel well'. Glucose checked, [id number]. PHONOGRAPH NEEDLE TIP MAKER made aware, new order provided, see MAR. Will recheck glucose in 2 hours.
[2023-04-10 20:32] LABS: Glucose - Point of Care 347 mg/dl (70-99)
[2023-04-10] MEDS: TYLENOL 650 MG PO (20:35)
[2023-04-10] MEDS: LANTUS 0.0500000000000000028 UNITS SC (20:40)
[2023-04-10] MEDS: NOVOLOG FLEXPEN 3 UNITS SC (21:35)
[2023-04-10 23:28] LABS: Glucose - Point of Care 203 mg/dl (70-99)
[2023-04-11 03:13] LABS: Glucose - Point of Care 86 mg/dl (70-99)
[2023-04-11 03:50] VITALS: BP 117/60
[2023-04-11 06:00] VITALS: BMI 23.5
[2023-04-11 06:25] LABS: Hematocrit 27.7 % (37.0-47.0); Hemoglobin 9.3 g/dL (12.0-16.0); Mean Corp Hgb Conc. 33.6 g/dL (33.0-37.0); Mean Corpuscular Hgb 32.7 pg (27.0-31.0); Mean Corpuscular Volume 97.5 fL (81.0-99.0); Mean Platelet Volume 10.7 fL (7.4-10.4); Platelet Count 129 10^3/uL (130-400); Red Blood Cell Count 2.84 10^6/uL (4.20-5.40); Red Cell Dist. Width 16.8 % (11.5-14.5); White Blood Cell Count 9.3 10^3/uL (4.8-10.8)
[2023-04-11 06:35] LABS: Blood Urea Nitrogen 26 mg/dl (7-17); Calcium 8.4 mg/dl (8.4-10.2); Chloride 91 mmol/L (98-107); Estimated Creatinine Clearance 34 ml/min; Glucose 61 mg/dl (70-99); Potassium 3.7 mmol/L (3.5-5.1); Sodium 132 mmol/L (135-145); eGFR > 60.00
[2023-04-11 06:45] LABS: Carbon Dioxide 35 mmol/L (22-30)
[2023-04-11 07:42] VITALS: BP 130/74
[2023-04-11] MEDS: LASIX 40 MG PO (07:43)
[2023-04-11] MEDS: PROTONIX 40 MG PO (07:44)
[2023-04-11] MEDS: PLAVIX 75 MG PO (07:44)
[2023-04-11] MEDS: DELTASONE 40 MG PO (07:44)
[2023-04-11] MEDS: SENOKOT-S 1 TABLET PO (07:44)
[2023-04-11] MEDS: TOPROL XL 25 MG PO (07:44)
[2023-04-11] MEDS: ELIQUIS 2.5 MG PO (07:45)
[2023-04-11] MEDS: ProAmatine PO ×2 (07:45→07:50)
[2023-04-11] MEDS: MYCOSTATIN ORAL SUSPENSION 5 ML PO ×2 (07:45→12:41)
[2023-04-11] MEDS: SANTYL OINTMENT 1 APPLIC TOPICAL (07:45)
[2023-04-11] MEDS: NOVOLOG FLEXPEN-LOW RESISTANCE SC ×2 (07:46→12:38)
[2023-04-11 07:47] LABS: Glucose - Point of Care 63 mg/dl (70-99)
[2023-04-11 08:35] LABS: Glucose - Point of Care 81 mg/dl (70-99)
--- NOTE | 2023-04-11 09:17 | W.PN.HOSP.TC ---
Addendum entered and electronically signed by Hanh Wood MD 04/11/23 14:10:
# Severe protein calorie malnutrition
# Stage 3 gluteal cleft PI wound less deep compared to last seen, however still with moderate amt. of slough at base.
Addendum entered and electronically signed by Hanh Wood MD 04/11/23 13:07:
total DC time 35 min
Original Note:
Today's Communication/Plan
-
for SNF today
Assessment / Plan
Assessment / Plan
HPI: Patient is an 83y F with PMH significant for ILD / pulm fibrosis, ASCVD, A-Fib and recent hospitalization for respiratory failure including intubation / ventilation who presented to ED from [facility] complaining of chest pain.
A/P :
# Chest Pain
# Pneumomediastinum
Patient s/p recent mechanical ventilation (03/05/23 - 03/11/23).
No fall / injury / trauma.
CT imaging with pneumomediastinum
CT esophagram without any evidence of leakage
CT surgery evaluation - treatment will remain supportive.
Appreciate Pulm and CTS recs
Repeat CT showing decreased pneumomediastinum
# ESBL E coli UTI
s/p ertapenem, s/p fosfomycin x1 dose
Appreciate ID input
# ILD / Pulmonary Fibrosis / Bronchiectasis
# Chronic Hypoxemic Respiratory Failure
Patient was discharged on 2 L of supplemental O2, continue with adequate oxygenation on this rate.
Continue current prednisone dosing / taper: decrease 10 mg every week (slow taper), start 30 mg as of 04/12.�
Pulm evaluation as noted above.
# Chronic HFpEF, stable.�
No evidence of significant hypervolemia on exam.
resume PO Lasix once daily (TUBE DISPATCHER BID)
follow I/Os, daily weights, etc.
# Resolved GURPREET
SCr 1.8 -> 0.8 (baseline of 0.9).
resume PO Lasix once daily (TUBE DISPATCHER BID)
# Paroxysmal Atrial Fibrillation�- Stable.�
Continue metoprolol for rate control.
Cont TUBE DISPATCHER eliquis
# Hypotension- Stable at present.�
Continue midodrine with holding parameters.
# GERD / Duodenal Ectasia, Stable.� No evidence of recurrent bleeding.
s/p cautery 12/2022.
Continue PPI - especially while on PO steroids.
# DM-II, Steroid-Induced�- Stable.�
hypoglycemia noted.
Discontinue Basal insulin with morning hypoglycemia
Follow glucose and cover with SSI as needed.
Recent A1C was 5.5%.
# hyponatremia
DVT Prophylaxis:� Eliquis
Code Status:� Full
DW RN
updated daughter Estuardo on the phone. Explained extensively
Anticipated Discharge: Today
Subjective/Interval History
-
Date of Service: April 11, 2023
Objective Data
-
Labs:
Laboratory Results
04/11/23
05:32
WBC 9.3
Hgb 9.3 L
Hct 27.7 L
Plt Count 129 L
Sodium 132 L
Potassium 3.7
Chloride 91 L
Carbon Dioxide 35 H
BUN 26 H
Creatinine 0.9
Glucose 61 L
Calcium 8.4
Vital Signs:
Vital Signs
Temp Pulse Resp BP Pulse Ox
36.3 C 88 18 130/74 100
04/11/23 07:42 04/11/23 07:50 04/11/23 07:42 04/11/23 07:50 04/11/23 07:42
I&O
04/10/23 04/11/23 04/12/23
06:59 06:59 06:59
Intake Total 800 / 800 960 / 960
Output Total 225 / 225 350 / 350
Balance 575 / 575 610 / 610
Review of Systems
-
All other systems: Reviewed and negative
Physical Exam
-
General: Well Developed, Well Nourished, Respiratory Distress (chronic), Conversant and Appears Chronically Ill
HEENT: Normocephalic, Atraumatic, Moist Mucous Membranes and Oxygen (2L NC)
Respiratory: Clear to Auscultation, Non Labored Respirations and Other (harsh breath sounds); Negative Accessory Resp Muscle Use
Cardiac: Regular Rhythm and S1/S2
GI: Soft, Nontender, Nondistended and Normal Bowel Sounds; Negative Organomegaly
Rectal: Deferred by Provider
Musculoskeletal: No Clubbing and No Cyanosis
Neuro: Awake and Alert
Psych: Calm and Intact Judgement/Insight
Data Reviewed
-
CT Scan: Report Reviewed by me
Labs: Labs Reviewed by me
--- NOTE | 2023-04-11 10:16 | CM ---
Addendum entered by Yessy Buck 04/11/23 10:24:
CM spoke with patient daughter, Estuardo. IMM discussed with daughter, she doesn't have an e-mail and would agree to have form given.
Original Note:
[facility] spoke with [facility]; they are able to accept the patient today. The for report [phone], fax [phone]. CM will call daughter to discuss IMM and transportation.
--- NOTE | 2023-04-11 11:23 | PN.CDI ---
CDI
- -
CDI:
Physician Documentation Request
Admit Date: 04/06/23 05:52
Dear Doctor Israel,
Patient admitted for pneumomediastinum.
04/06 Child Life Assistant Assessment: 'Pt meets criteria for severe PCM of acute illness with >2 % wt loss x 1wk , prolonged poor intake prior to hospital admission.'
Based on the information, which of the following most accurately represents the patient's nutritional status?
Severe protein calorie malnutrition
Other
[place] Criteria ([facility] Hospitalist 2017)
2 or more criteria must be present for either
non severe or severe malnutrition
Note that the criteria differs related to the
presence of an acute or chronic illness
Acute Illness Chronic Illness
Energy Intake Non Severe: <75% for >7 days Non Severe: <75% for >1 month
Severe: <50% for >5 days Severe: <75% for >1 month
Weight Loss Non Severe: 1-2% over 1 week Non Severe: 5% over 1 month
5% over 1 month 7.5% over 3 months
7.5% over 3 months 10% over 6 months
1 year N/A 20% over 1 year
Severe: >2% over 1 week Severe: >5% over 1 month
>5% over 1 month >7.5% over 3 months
>7.5% over 3 months >10% over 6 months
1 year N/A >20% over 1 year
Body Fat Non Severe: Mild Decrease Non Severe: Mild Loss
Severe: Moderate Decrease Severe: Severe Loss
Muscle Mass Non Severe: Mild Decrease Non Severe: Mild Loss
Severe: Moderate Decrease Severe: Severe Loss
Fluid Accumulation Non Severe: Mild Accumulation Non Severe: Mild Accumulation
Severe: Moderate to severe Severe: Moderate to severe
accumulation accumulation
Reduced Tack Cutter Strength Non Severe: N/A Non Severe: N/A
Severe: Measurably reduced Severe: Measurably reduced
Use of terms such as suspected, likely, concern for, or probable (associated with a specific diagnosis that is being evaluated, monitored, or treated as if it exists) are acceptable and can be coded in the inpatient setting, when documented at the
time of discharge.
Thank you,
Janny Ramon RN, BSN
CDI Specialist
Available via [place] text
Please use your independent medical judgment in providing your response.
--- NOTE | 2023-04-11 11:29 | PN.CDI ---
CDI
- -
CDI:
Physician Documentation Request
Admit Date: 04/06/23 05:52
Dear Doctor Ketty,
Patient admitted for pneumomediastinum.
2/2 Potassium level: 2.7
2/2: Potassium chloride 40 meq PO administered
2/2: Potassium chloride 40 meq IV administered
Based on the above, could you clarify in the progress notes, the appropriate diagnosis, if significant, that supports the above abnormalities and additional evaluation, monitoring and/or treatment rendered:
Hypokalemia
Abnormal lab value insignificant
Other
Use of terms such as suspected, likely, concern for, or probable (associated with a specific diagnosis that is being evaluated, monitored, or treated as if it exists) are acceptable and can be coded in the inpatient setting, when documented at the
time of discharge.
Thank you,
Janny Ramon RN, BSN
CDI Specialist
Available via [place] text
Please use your independent medical judgment in providing your response.
--- NOTE | 2023-04-11 11:36 | PN.CDI ---
CDI
- -
CDI:
Physician Documentation Request
Admit Date: 04/06/23 05:52
Dear Doctor Israel,
Patient admitted with pneumomediastinum.
2/5 Wound Note: 'Stage 3 gluteal cleft PI wound less deep compared to last seen, however still with moderate amt. of slough at base.'
Physician documentation of the type and location of wounds is required for compliant documentation. Based on the above clinical findings and your assessment, please provide the following in your progress note:
1. Location of the ulcer/wound, including laterality.
2. Type (etiology) of ulcer/wound:
- Pressure (decubitus) ulcer
- Other
- Unable to determine
3. If a pressure ulcer, please also include the stage* of the ulcer:
- Stage 1 - Skin intact, non-blanchable redness
- Stage 2 - Partial thickness loss of dermis, includes intact or open blister
- Stage 3 - Full thickness tissue not including bone, tendon or muscle
- Stage 4 - Full thickness tissue loss, including exposed bone, tendon or muscle
- Unstageable - Full thickness loss in which the base of the ulcer is covered by slough (yellow, del castillo, fernandez, green or brown) and/or eschar (del castillo, brown or black) in the wound bed.
- Unable to determine
Use of terms such as suspected, likely, concern for, or probable (associated with a specific diagnosis that is being evaluated, monitored, or treated as if it exists) are acceptable and can be coded in the inpatient setting, when documented at the
time of discharge.
Thank you,
Janny Ramon RN, BSN
CDI Specialist
Available via [place] text
Please use your independent medical judgment in providing your response.
*Source: National Pressure Ulcer Advisory Panel (NPUAP)
[2023-04-11 11:51] VITALS: BP 130/75
--- NOTE | 2023-04-11 12:16 | W.DCSUMMARY ---
Discharge Summary
Discharge Data
Date of Admission: 04/06/23
Date of Discharge: 04/11/23
-
Pending Results: No
Hospital Course
Principal Diagnosis:
Pneumomediastinum
ESBL E coli UTI
Resolved GURPREET (likely due to overdiuresis)
Chronic Diagnoses:�
ILD / Pulmonary Fibrosis / Bronchiectasis
Chronic Hypoxemic Respiratory Failure
Chronic HFpEF, stable.�
Paroxysmal Atrial Fibrillation�- Stable.�
Hypotension- Stable on midodrine with holding parameters.
GERD / Duodenal Ectasia, Stable.�
Steroid-induced hyperglcyemia- Stable.�
Chronic Hyponatremia
Consultations:�
Pulmonary
Cardiothoracic surgery
Infectious disease
Procedures:�
None
Clinical course:�
This is a 83 year old female with past medical history as stated above, who was sent from [facility] for chest pain.
Problem 1:
Chest Pain due to pneumomediastinum.
Of note, the patient recently underwent mechanical ventilation (03/05/23 - 03/11/23). She has had no fall / injury / trauma recently.
Her CT chest showed pneumomediastinum. Her follow up CT chest noted decreased pneumoperitoneum.
Her CT esophagram was negative for leakage (indicating no esophageal perforation).
She was seen by CT surgery, and was recommended conservative management.
Problem 2:
ESBL E coli UTI.
The patient received ertapenem,�followed by fosfomycin x1 dose, per ID.
Problem 3:
Resolved GURPREET.
Her SCr downtrended from 1.8 on admission to 0.8 (at her baseline).
Her prior to admission Lasix was resumed but decreased to daily dosage (from twice daily prior to admission).
As for the rest of her medical problems, they were stable during her hospital stay.
Discharge Plan
-
Patient Disposition: Care Home/SNF
Discharge Diagnosis/Procedures: chest pain due to Pneumomediastinum; sacral decubitus ulcer
Condition: Fair
Diet: As tolerated
Activity: As tolerated
Driving Restrictions: No driving
Wound Care: Wound Care Instructions
Gluteal cleft: Clean with saline, skin prep periwound, smear of santyl to base of wound followed by adaptic and dry gauze, paper tape daily.
air mattress with turning schedule
air chair cushion when sitting
Follow up at wound care center call for an appointment.
Activity Restrictions/Additional Instructions:
Start prednisone 30 mg on 04/12, decrease 10 mg every week (slow taper) and keep at 10 mg until you see your office services representative.
Continue Lasix 40 mg daily (instead of twice daily).
Follow glucose with sliding scale
Referrals:
Sky Hackett MD [Family Provider] - in less than 1 week
Jayy Adame MD [Active] - (CXR in 2 weeks with Pulm f/u ([facility] or [facility]))
Prescriptions:
New
Santyl 250 unit/gram Ointment
1 applic topical DAILY Qty: 30 0RF
Rx Instructions:
sacral decub ulcer
prednisone 10 mg Tablet
See Rx Instructions .ROUTE .COMPLEX Qty: 45 0RF
Rx Instructions:
30 mg daily x7 days, 20 mg daily x7 days, then 10 mg daily until seen by office services representative
Continued
nitroglycerin 0.4 MG tablet, sublingual
0.4 mg sublingual [id number] PRN (Reason: chest pain)
cholecalciferol (vitamin D3) 2,000 UNITS tablet
2,000 units PO DAILY
ferrous sulfate 325 mg (65 mg iron) Tablet
325 mg PO DAILY
clopidogrel 75 mg tablet
75 mg PO DAILY
acetaminophen 325 mg Tablet
650 mg PO Q6HPRN PRN (Reason: mild pain)
calcium carbonate-vitamin D3 500 mg-5 mcg (200 unit) Tablet
1 tab PO BID
apixaban 5 mg Tablet
5 mg PO BID
metoprolol succinate 25 mg Tablet Extended Release 24 Hr
25 mg PO DAILY Qty: 30 0RF
midodrine 5 mg Tablet
5 mg PO Q8 Qty: 90 0RF
Rx Instructions:
hold for SBP > 120
magnesium hydroxide [Milk of Magnesia] 400 mg/5 mL Suspension
2,400 mg PO HSPRN PRN (Reason: if no bm by 3rd day)
pantoprazole [Protonix] 40 mg Tablet,Delayed Release (Dr/Ec)
40 mg PO DAILY
Visbiome 112.5 billion cell Capsule
1 cap PO DAILY
Changed
furosemide 40 mg tablet
40 mg PO DAILY Qty: 0 0RF
Discontinued
insulin aspart U-100 [Novolog FlexPen U-100 Insulin] 100 unit/mL (3 mL) insulin pen
5 unit SC AC Qty: 15 0RF
prednisone 10 mg Tablet
40 mg PO UD
Rx Instructions:
take 40mg daily from 04/04/2023-04/11/2023 then 30mg daily from 04/08/23-04/18/23 then 20mg daily 04/18/23-04/25/23
oseltamivir [Tamiflu] 75 mg Capsule
75 mg PO DAILY
Patient Comments:
take from 03/31/23-04/14/23
insulin glargine-yfgn 100 unit/mL Solution
12 unit SC QPM
Discharge Orders:
Discharge Patient (As Directed); Ordered 04/11/23
Ordered By: Hanh Wood
[2023-04-11 12:20] LABS: Glucose - Point of Care 108 mg/dl (70-99)
--- NOTE | 2023-04-11 13:46 | W.PN.PUL3 ---
Today's Communication / Plan
-
Disposition
Assessment
-
83-year-old female with recent hospital stay, VDRF, ILD flare, discharged 03/30/2023 to rehabilitation, now presents with acute onset chest discomfort. CT imaging revealed pneumomediastinum. We are asked to comment on pulmonary process. Of note,
patient denies any trauma, falls, emesis.
Acute pneumomediastinum
Acute onset chest pain 04/05, now resolved
Interstitial lung disease with recent ILD flare
History of steroid use in the past
Discharged on prednisone taper, 50 mg 03/30/2023
VDRF, extubated 03/11/2023
Discharge 03/30/2023
E coli UTI
Conditions present prior to admission
History of heart failure
History of COVID-pneumonia December 2022
History of pulmonary fibrosis
Followed by Dr. Adame as op
History of GI bleed
Duodenal ectasia
Schatzki's ring GE junction 12/17/2022
Scoliosis
Atrial fibrillation on amiodarone, apixaban
CAD, multiple stents, last 11-11-22 (one stent at [place]), on plavix
Aortic stenosis, mitral regurgitation
Hypertension/hyperlipidemia
Fibromyalgia
GERD/hiatal hernia
Diverticulitis, IBS
History of recurrent UTIs
History of appendectomy,D&C, hysterectomy, Tonsillectomy, Hernia repair
Lifelong non-smoker
DNR per prior hospital stay
Plan/Recommendations
CT imaging with pneumomediastinum
CT esophagram without any evidence of leakage
Hemoglobin drop noted, 8.4, was 11.
Patient with baseline interstitial lung disease, on chronic steroid therapy
Patient describes worsening constipation over the past few weeks, significant bearing down (more than usual per pt)
Denies nausea, emesis
Avoid positive pressure ventilation, NIV
Unfortunately, patient is on chronic steroids after recent prolonged hospital stay being tapered, currently on 40 mg prednisone
No changes for now but will consider coming down as this will increase risk for persistent air leak
Unfortunately will require slow taper, currently at 40 mg qd since 04-06, taper by 10 mg every one week and keep at 10 mg qd till seen at office by Dr Adame
Patient aware that shortness of breath will be chronic, has end-stage lung disease, chronic interstitial disease, she understands
Started bowel regimen, stool softener
There is no clear history of emesis, nausea arguing against esophageal perforation
Chest x-ray 04-08 reviewed, marked improvement of pneumomediastinum
Chest CT 04-09 c/w 01: to my review, improved pneumomediastinum (no change per radiology report)
Continue oxygen therapy
Patient on 2 L at this time, adequate oxygenation, POx 95% at rest
E coli UTI, on ertapenem since 04-09, transition to fosfomycin as rec by ID
Reviewed extensive records from recent hospital stay
Extensive discussions with family, family had decided at one point to not pursue tracheotomy, DNR status noted
DVT prophylaxis: Patient was on Eliquis as outpatient, resumed
GI prophylaxis: Continue pantoprazole
D/w Mrs Valdovinos and her daughter at bedside 04-08
D/w Mrs Valdovinos on a daily basis
Stable for d/c at this juncture, pneumomediastinum has improved and she is clinically stable
Subjective Data
-
Date of Service:
Date of Service: April 11, 2023
Chief Complaint: Pulmonary Follow Up
Subjective:
No major events reported
Stabilizing enough for d/c
Review of Systems
General: Fever (n), Sweats (n), Chills and Satisfactory Appetite
HEENT: Dysphagia (n)
Cardiopulmonary: Dyspnea (n at rest on O2), Cough (trace), Sputum Production (n) and Wheezing (n)
GI: Abdominal Pain (n), Nausea (n) and Vomiting (n)
Neuro: Weakness
Objective Data
Data Reviewed
Vital Signs / I&O / Oxygen:
Vital Signs
Temp Pulse Resp BP Pulse Ox
98.4 F 90 16 130/75 94
04/11/23 11:51 04/11/23 11:51 04/11/23 11:51 04/11/23 11:51 04/11/23 11:51
Intake and Output
04/10/23 04/11/23 04/12/23
06:59 06:59 06:59
Intake Total 800 / 800 960 / 960
Output Total 225 / 225 350 / 350
Balance 575 / 575 610 / 610
SaO2 94
Nasal Cannula flow liters per 2
minute
Physical Exam
General: Comfortable
HEENT: Normocephalic, Anicteric and Moist Mucous Membranes
Cardiovascular: S1-S2, Regular Rhythm, Murmur (n), Peripheral Edema (n) and Calf Tenderness (n)
Respiratory: Wheeze (n), Crackles (Bilateral posterior), Rhonchi (n), Non-Labored Respirations, Stridor (n), Crepitus (n) and Other (no sc emphysema)
GI: Soft, Non Distended, Non Tender and Normal Bowel Sounds
Neurology: Awake, AO x 3 and No Motor Deficits
Skin: Cyanosis (n), Jaundice (n) and Rash (n)
Labs/Micro/Reports
Lab Data
04/11/23 05:32
04/11/23 05:32
Microbiology
04/06/23 00:26 Urine Urine Culture - Final
Escherichia coli - ESBL
== END 2023-04-11 13:44 | DRG 199 ==
LOC: 3 WEST ACU 05:52
PROVIDERS: Internal Medicine; Nurse Practitioner Family; ADMITTING PHYSICIAN Hospitalist; ATTENDING PHYSICIAN Internal Medicine; CONSULT PHYSICIAN Internal Medicine; CONSULT PHYSICIAN Internal Medicine Infectious Disease; EMERGENCY PHYSICIAN Emergency Medicine; FAMILY PHYSICIAN Internal Medicine; OTHER PHYSICIAN Internal Medicine Critical Care Medicine; OTHER PHYSICIAN Thoracic Surgery (Cardiothoracic Vascular Surgery)
DX: J98.2 Interstitial emphysema (principal); E43 Unspecified severe protein-calorie malnutrition; L89.893 Pressure ulcer of other site, stage 3; N17.9 Acute kidney failure, unspecified; I50.32 Chronic diastolic (congestive) heart failure; Z16.12 Extended spectrum beta lactamase (ESBL) resistance; N39.0 Urinary tract infection, site not specified; E87.1 Hypo-osmolality and hyponatremia; J96.11 Chronic respiratory failure with hypoxia; J47.9 Bronchiectasis, uncomplicated; I95.9 Hypotension, unspecified; K21.9 Gastro-esophageal reflux disease without esophagitis; T38.0X5A Adverse effect of glucocorticoids and synthetic analogues, initial encounter; Z68.23 Body mass index [BMI] 23.0-23.9, adult; T50.2X5A Adverse effect of carbonic-anhydrase inhibitors, benzothiadiazides and other diuretics, initial encounter; Z66 Do not resuscitate; I48.0 Paroxysmal atrial fibrillation; Z79.01 Long term (current) use of anticoagulants
CPT/HCPCS: 71045; 71046; 71250; 74176; 80048; 80053; 81003; 81015; 82962; 83735; 83880; 84484; 85025; 85027; 87070; 87077; 87086; 87186; 93005; 96360; 96361; 97163; 97166; 97530; 97535; 99285; J1335

== ENCOUNTER → 2023-04-18 09:49 | Outpatient (REF) | payer OTHER, MEDICARE, SELFPAY ==
[2023-04-18 10:26] LABS: ALT (SGPT) 23 U/L (0-35); AST (SGOT) 23 U/L (14-36); Albumin 2.5 g/dl (3.5-5.0); Alkaline Phosphatase 87 U/L (38-126); Blood Urea Nitrogen 29 mg/dl (7-17); Calcium 8.9 mg/dl (8.4-10.2); Chloride 83 mmol/L (98-107); Glucose 98 mg/dl (70-99); Potassium 2.9 mmol/L (3.5-5.1); Sodium 130 mmol/L (135-145); Total Bilirubin 1.2 mg/dl (0.2-1.3); Total Protein 4.7 g/dl (6.3-8.2); eGFR > 60.00
[2023-04-18 10:33] LABS: Carbon Dioxide 42 mmol/L (22-30)
[2023-04-18 10:35] LABS: % Basophils 0.1 % (0-2); % Eosinophils 0.1 % (0-6); % Immature Granulocytes 0.8 % (0-0.5); % Lymphocytes 26.7 % (20.5-51.1); % Monocytes 8.3 % (1.7-9.3); Absolute Immature Granulocytes 0.1 10^3/uL (0-0.05); Absolute Monocytes 0.6 10^3/uL (0.1-0.6); Absolute Neutrophils 4.7 10^3/uL (1.4-6.5); Hematocrit 27.8 % (37.0-47.0); Hemoglobin 9.4 g/dL (12.0-16.0); Mean Corp Hgb Conc. 33.8 g/dL (33.0-37.0); Mean Corpuscular Hgb 32.9 pg (27.0-31.0); Mean Corpuscular Volume 97.2 fL (81.0-99.0); Mean Platelet Volume 10.7 fL (7.4-10.4); Nucleated Red Blood Cells % 0.3 %; Platelet Count 191 10^3/uL (130-400); Red Blood Cell Count 2.86 10^6/uL (4.20-5.40); Red Cell Dist. Width 16.9 % (11.5-14.5); White Blood Cell Count 7.3 10^3/uL (4.8-10.8)
[2023-04-18 11:43] LABS: Glycohemoglobin (HgbA1c) 6.2 % (4.0-5.6)
== END ==
LOC: OLABN 09:49
PROVIDERS: ATTENDING PHYSICIAN Student in an Organized Health Care Education/Training Program
DX: E10.9 Type 1 diabetes mellitus without complications (principal); I82.509 Chronic embolism and thrombosis of unspecified deep veins of unspecified lower extremity; D63.8 Anemia in other chronic diseases classified elsewhere; E83.42 Hypomagnesemia
CPT/HCPCS: 36415; 80053; 83036; 83735; 85025

== ENCOUNTER → 2023-04-24 09:36 | Outpatient (REF) | payer OTHER, MEDICARE, SELFPAY ==
[2023-04-24 10:00] LABS: Blood Urea Nitrogen 28 mg/dl (7-17); Calcium 8.9 mg/dl (8.4-10.2); Chloride 86 mmol/L (98-107); Glucose 109 mg/dl (70-99); Potassium 3.4 mmol/L (3.5-5.1); Sodium 131 mmol/L (135-145); eGFR 49.24
[2023-04-24 10:09] LABS: Carbon Dioxide 39 mmol/L (22-30)
== END ==
LOC: OLABN 09:36
PROVIDERS: ATTENDING PHYSICIAN Student in an Organized Health Care Education/Training Program
DX: E87.1 Hypo-osmolality and hyponatremia (principal)
CPT/HCPCS: 36415; 80048

== ENCOUNTER → 2023-05-01 11:43 | Outpatient (REF) | payer OTHER, MEDICARE, SELFPAY ==
[2023-05-01 12:46] LABS: Blood Urea Nitrogen 28 mg/dl (7-17); Calcium 8.7 mg/dl (8.4-10.2); Carbon Dioxide 37 mmol/L (22-30); Chloride 94 mmol/L (98-107); Glucose 79 mg/dl (70-99); Magnesium 1.8 mg/dl (1.6-2.3); Potassium 3.4 mmol/L (3.5-5.1); Sodium 132 mmol/L (135-145); eGFR 49.24
== END ==
LOC: OLABN 11:43
PROVIDERS: ATTENDING PHYSICIAN Student in an Organized Health Care Education/Training Program
DX: E87.1 Hypo-osmolality and hyponatremia (principal); Z79.52 Long term (current) use of systemic steroids
CPT/HCPCS: 36415; 80048; 83735

== ENCOUNTER → 2023-05-04 09:23 | Outpatient (REF) | payer OTHER, MEDICARE, SELFPAY ==
[2023-05-04 10:01] LABS: Urine Albumin 1+ (Neg - Trace); Urine Bilirubin Negative (Negative); Urine Character Very Cloudy (Clear); Urine Color Yellow; Urine Glucose Negative (Negative); Urine Ketone Negative (Negative); Urine Leukocyte 2+ (Negative); Urine Nitrite Negative (Negative); Urine Occult Blood 2+ (Negative); Urine Urobilinogen Negative (Neg - 1+)
[2023-05-04 10:53] LABS: Urine Bacteria Many (Negative); Urine White Cell >100 /HPF (0-5)
== END ==
LOC: OLABN 09:23
PROVIDERS: ATTENDING PHYSICIAN Student in an Organized Health Care Education/Training Program
DX: R39.14 Feeling of incomplete bladder emptying (principal); R30.9 Painful micturition, unspecified
CPT/HCPCS: 81003; 81015; 87077; 87086; 87186

== ENCOUNTER → 2023-05-08 12:11 | Outpatient (REF) | payer OTHER, MEDICARE, SELFPAY ==
[2023-05-08 13:55] LABS: Blood Urea Nitrogen 21 mg/dl (7-17); Calcium 8.9 mg/dl (8.4-10.2); Carbon Dioxide 35 mmol/L (22-30); Chloride 93 mmol/L (98-107); Glucose 95 mg/dl (70-99); Potassium 3.3 mmol/L (3.5-5.1); Sodium 133 mmol/L (135-145); eGFR 49.24
== END ==
LOC: OLABN 12:11
PROVIDERS: ATTENDING PHYSICIAN Student in an Organized Health Care Education/Training Program
DX: E87.1 Hypo-osmolality and hyponatremia (principal)
CPT/HCPCS: 36415; 80048

== ENCOUNTER → 2023-05-11 10:46 | Outpatient (REF) | payer OTHER, MEDICARE, SELFPAY ==
[2023-05-11 12:52] LABS: Blood Urea Nitrogen 19 mg/dl (7-17); Calcium 9.3 mg/dl (8.4-10.2); Carbon Dioxide 33 mmol/L (22-30); Chloride 94 mmol/L (98-107); Glucose 89 mg/dl (70-99); Potassium 3.9 mmol/L (3.5-5.1); Sodium 134 mmol/L (135-145); eGFR 49.24
== END ==
LOC: OLABN 10:46
PROVIDERS: ATTENDING PHYSICIAN Student in an Organized Health Care Education/Training Program
DX: I50.30 Unspecified diastolic (congestive) heart failure (principal)
CPT/HCPCS: 36415; 80048

== ENCOUNTER → 2023-05-16 14:00 | Outpatient (REF) | payer OTHER, MEDICARE, SELFPAY ==
[2023-05-17 13:49] LABS: Urine Albumin Trace (Neg - Trace); Urine Bilirubin Negative (Negative); Urine Character Very Cloudy (Clear); Urine Color Yellow; Urine Glucose Negative (Negative); Urine Ketone Negative (Negative); Urine Leukocyte 2+ (Negative); Urine Nitrite Negative (Negative); Urine Occult Blood 4+ (Negative); Urine Specific Gravity 1.015 (<1.030); Urine Urobilinogen Negative (Neg - 1+)
[2023-05-17 14:08] LABS: Urine Bacteria Few (Negative); Urine White Cell 50-60 /HPF (0-5)
== END ==
LOC: OLABN 14:00
PROVIDERS: ATTENDING PHYSICIAN Student in an Organized Health Care Education/Training Program
DX: R30.9 Painful micturition, unspecified (principal); R82.90 Unspecified abnormal findings in urine
CPT/HCPCS: 81003; 81015; 87077; 87086; 87186

== ENCOUNTER → 2023-05-17 09:06 | Day surgery (SDC) | payer MEDICARE, OTHER, SELFPAY ==
[2023-05-17 11:16] LABS: Glucose - Point of Care 107 mg/dl (70-99)
--- NOTE | 2023-05-17 11:16 | ITS.CL.CARDI ---
[facility] - Cardioversion
Cardioversion
Procedure Report:
Date of Procedure: 05/17/2023
Procedure: Cardioversion.
Indication: Symptomatic atrial fibrillation.
Performing Physician: Constance Craig MD
Technique: The patient was brought to the holding area. Signed informed consent was obtained. A time out was called and performed. The patient was sedated by a member of the anesthesia service. Anticoagulation status was reviewed and was
appropriate. R-2 pads were placed anteriorly and posteriorly. A 200 J synchronized biphasic shock restored normal sinus rhythm without significant bradycardia. There were no complications.
Conclusion: Uncomplicated cardioversion from atrial fibrillation to sinus rhythm with frequent pacs.
Recommendation: Routine post cardioversion care. Continue usp anticoagulation.
cc: Marcelle
== END ==
LOC: CATH 09:06
PROVIDERS: ATTENDING PHYSICIAN Internal Medicine Cardiovascular Disease; FAMILY PHYSICIAN Student in an Organized Health Care Education/Training Program
DX: I48.0 Paroxysmal atrial fibrillation (principal); I11.0 Hypertensive heart disease with heart failure; I50.32 Chronic diastolic (congestive) heart failure; I35.0 Nonrheumatic aortic (valve) stenosis; K21.9 Gastro-esophageal reflux disease without esophagitis; G47.33 Obstructive sleep apnea (adult) (pediatric); Z79.01 Long term (current) use of anticoagulants; Z79.02 Long term (current) use of antithrombotics/antiplatelets
CPT/HCPCS: 82962; 92960; 93005

== ENCOUNTER → 2023-05-26 09:12 | Outpatient (REF) | payer OTHER, SELFPAY ==
[2023-05-26 10:41] LABS: % Basophils 0.8 % (0-2); % Eosinophils 4.6 % (0-6); % Immature Granulocytes 0.5 % (0-0.5); % Lymphocytes 20.4 % (20.5-51.1); % Monocytes 14.2 % (1.7-9.3); % Neutrophils 59.5 % (42.2-75.2); Absolute Basophils 0.1 10^3/uL (0-0.2); Absolute Eosinophils 0.4 10^3/uL (0-0.7); Absolute Immature Granulocytes 0.1 10^3/uL (0-0.05); Absolute Lymphocytes 1.9 10^3/uL (1.2-3.4); Absolute Monocytes 1.3 10^3/uL (0.1-0.6); Absolute Neutrophils 5.4 10^3/uL (1.4-6.5); Hematocrit 27.6 % (37.0-47.0); Hemoglobin 8.7 g/dL (12.0-16.0); Mean Corp Hgb Conc. 31.5 g/dL (33.0-37.0); Mean Corpuscular Hgb 32.5 pg (27.0-31.0); Mean Platelet Volume 10.3 fL (7.4-10.4); Nucleated Red Blood Cells % 0 %; Platelet Count 413 10^3/uL (130-400); Red Blood Cell Count 2.68 10^6/uL (4.20-5.40); Red Cell Dist. Width 16.9 % (11.5-14.5); White Blood Cell Count 9.2 10^3/uL (4.8-10.8)
[2023-05-26 10:51] LABS: ALT (SGPT) 13 U/L (0-35); AST (SGOT) 19 U/L (14-36); Albumin 2.6 g/dl (3.5-5.0); Alkaline Phosphatase 93 U/L (38-126); Blood Urea Nitrogen 13 mg/dl (7-17); Calcium 9.2 mg/dl (8.4-10.2); Carbon Dioxide 34 mmol/L (22-30); Chloride 97 mmol/L (98-107); Glucose 77 mg/dl (70-99); Sodium 137 mmol/L (135-145); Total Bilirubin 0.6 mg/dl (0.2-1.3); Total Protein 5.2 g/dl (6.3-8.2); eGFR > 60.00
[2023-05-26 11:04] LABS: NT-proBNP 26000 pg/ml
== END ==
LOC: OLABN 09:12
PROVIDERS: ATTENDING PHYSICIAN Student in an Organized Health Care Education/Training Program
DX: R06.02 Shortness of breath (principal)
CPT/HCPCS: 36415; 80053; 83880; 85025

== ENCOUNTER → 2023-05-30 12:05 | Outpatient (REF) | payer OTHER, MEDICARE, SELFPAY ==
[2023-05-30 13:00] LABS: % Basophils 0.9 % (0-2); % Immature Granulocytes 0.2 % (0-0.5); % Lymphocytes 35.7 % (20.5-51.1); % Monocytes 15.4 % (1.7-9.3); % Neutrophils 42.8 % (42.2-75.2); Absolute Basophils 0.1 10^3/uL (0-0.2); Absolute Eosinophils 0.5 10^3/uL (0-0.7); Absolute Lymphocytes 3.3 10^3/uL (1.2-3.4); Absolute Monocytes 1.4 10^3/uL (0.1-0.6); Absolute Neutrophils 3.9 10^3/uL (1.4-6.5); Hematocrit 32.7 % (37.0-47.0); Hemoglobin 9.7 g/dL (12.0-16.0); Mean Corp Hgb Conc. 29.7 g/dL (33.0-37.0); Mean Corpuscular Volume 107.9 fL (81.0-99.0); Mean Platelet Volume 10.6 fL (7.4-10.4); Nucleated Red Blood Cells % 0 %; Platelet Count 421 10^3/uL (130-400); Red Blood Cell Count 3.03 10^6/uL (4.20-5.40); Red Cell Dist. Width 16.6 % (11.5-14.5); White Blood Cell Count 9.1 10^3/uL (4.8-10.8)
[2023-05-30 14:13] LABS: Blood Urea Nitrogen 14 mg/dl (7-17); Calcium 10.2 mg/dl (8.4-10.2); Carbon Dioxide 33 mmol/L (22-30); Chloride 101 mmol/L (98-107); Glucose 79 mg/dl (70-99); Potassium 4.7 mmol/L (3.5-5.1); Sodium 137 mmol/L (135-145); eGFR > 60.00
[2023-05-30 14:22] LABS: Total Iron Binding Capacity 215 ug/dl (265-497)
[2023-05-30 14:24] LABS: NT-proBNP 12700 pg/ml
== END ==
LOC: OLABN 12:05
PROVIDERS: ATTENDING PHYSICIAN Student in an Organized Health Care Education/Training Program
DX: D64.9 Anemia, unspecified (principal); I50.30 Unspecified diastolic (congestive) heart failure
CPT/HCPCS: 80048; 82728; 83550; 83880; 85025

== ENCOUNTER → 2023-06-09 09:17 | Outpatient (REF) | payer OTHER, MEDICARE, SELFPAY ==
[2023-06-09 11:27] LABS: Blood Urea Nitrogen 28 mg/dl (7-17); Calcium 10.5 mg/dl (8.4-10.2); Carbon Dioxide 31 mmol/L (22-30); Chloride 103 mmol/L (98-107); Glucose 91 mg/dl (70-99); Potassium 3.9 mmol/L (3.5-5.1); Sodium 136 mmol/L (135-145); eGFR 44.36
== END ==
LOC: OLABN 09:17
PROVIDERS: ATTENDING PHYSICIAN Student in an Organized Health Care Education/Training Program
DX: I50.30 Unspecified diastolic (congestive) heart failure (principal)
CPT/HCPCS: 36415; 80048

== ENCOUNTER 2023-06-19 13:32 | Inpatient (IN) | payer MEDICARE, OTHER, SELFPAY ==
[2023-06-19] VITALS (37 sets, daily range): BP systolic 88–117; BP diastolic 37–82; BMI 24.7; BMI 22.7
[2023-06-19 10:05] LABS: % Basophils 0.6 % (0-2); % Eosinophils 2.7 % (0-6); % Immature Granulocytes 0.3 % (0-0.5); % Lymphocytes 26.7 % (20.5-51.1); % Monocytes 12.4 % (1.7-9.3); % Neutrophils 57.3 % (42.2-75.2); Absolute Basophils 0.1 10^3/uL (0-0.2); Absolute Eosinophils 0.3 10^3/uL (0-0.7); Absolute Lymphocytes 2.7 10^3/uL (1.2-3.4); Absolute Monocytes 1.3 10^3/uL (0.1-0.6); Absolute Neutrophils 5.8 10^3/uL (1.4-6.5); Hematocrit 34.4 % (37.0-47.0); Hemoglobin 10.8 g/dL (12.0-16.0); Mean Corp Hgb Conc. 31.4 g/dL (33.0-37.0); Mean Corpuscular Volume 102.1 fL (81.0-99.0); Mean Platelet Volume 11.6 fL (7.4-10.4); Nucleated Red Blood Cells % 0 %; Platelet Count 286 10^3/uL (130-400); Red Blood Cell Count 3.37 10^6/uL (4.20-5.40); Red Cell Dist. Width 15.2 % (11.5-14.5); White Blood Cell Count 10.1 10^3/uL (4.8-10.8)
[2023-06-19 10:18] LABS: ALT (SGPT) 15 U/L (0-35); AST (SGOT) 28 U/L (14-36); Albumin 3.4 g/dl (3.5-5.0); Alkaline Phosphatase 83 U/L (38-126); Blood Urea Nitrogen 26 mg/dl (7-17); Carbon Dioxide 35 mmol/L (22-30); Chloride 96 mmol/L (98-107); Estimated Creatinine Clearance 31 ml/min; Glucose 98 mg/dl (70-99); Potassium 3.8 mmol/L (3.5-5.1); Sodium 133 mmol/L (135-145); Total Bilirubin 0.4 mg/dl (0.2-1.3); Total Protein 6.3 g/dl (6.3-8.2); eGFR 55.21
--- NOTE | 2023-06-19 10:26 | ED.GENMED ---
History of Present Illness
General
Chief Complaint: Blood Pressure Problem
Source: patient
Exam Limitations: none
Time Seen by Provider: 06/19/23 10:13
Nursing documentation reviewed up to this point in time: agreed with
Travel History
Have you had any contact with someone who has COVID-19?: No
Do you have any symptoms of coronavirus? Fever > 100 degrees, chills, cough, shortness of breath, sore throat, loss of taste or smell, muscle aches, or headache?: No
History of Present Illness
History of Present Illness:
Patient is an 83-year-old female with a history of interstitial lung disease on chronic oxygen, chronic heart failure with a preserved EF, moderate AAS, paroxysmal A-fib status post cardioversion on 3�13, persistent hypotension with midodrine as
needed orders who presents for feeling wiped out/lethargic and lightheaded today. Her vitals were checked by the senior care staff at [facility] and her heart rate was in the 140s and her blood pressure was 89/50. Patient was not hypoxic on
her 2 L. She was given a very small amount of IV fluids by EMS and on arrival her blood pressures in the low 100s. She was unaware of the fact that she went back into atrial fibrillation and does not know when this could have occurred. She has
not had any fever or chills, nausea or vomiting, chest pain, abdominal pain, vomiting or diarrhea. She is not having any urinary discomfort. Patient does feel more short of breath and wiped out than normal.
Past History
Past History
ED Past Medical History: Arrthythmia (Fibrillation), CAD, Fibromyalgia, GERD, HTN, Hypercholesterolemia, Psychiatric (Depression, Panic disorder) and Other (History of back pain, migraines, diverticulitis, irritable bowel, loss of urination control,
arthritis, osteoporosis, impaired vision, rosacea, shingles, cataracts, Hiatel hernia)
ED Past Surgical History: Appendectomy (Questionable as patient unsure), Cardiac (Recent coronary stent X5), Gynecological (D&C, hysterectomy), Tonsilectomy and Other (Hernia repair)
Social History
Tobacco: Non-smoker
Alcohol: None
Drug: None
Personal:
Living: alone
Employment: Retired
Family History
Family History: CAD
Review of Systems
Review of Systems
Allergies reviewed?: Yes
All Other Systems: Not applicable
Phy Exam
Physical Exam
Physical Exam:
GENERAL: Alert , in no apparent distress, wiped out
EYE: pupils equal and reactive
NECK: Supple
ENT: o/p clr, mmm.
CARDIAC: rapid, irregular + murmur, minimal LE edema, nonpitting
LUNGS: mild tachypnea, no hypoxia, mild crackles L base;
ABDOMEN: Soft, without focal tenderness, no r/g, no cvat, normal bowel sounds
NEUROLOGICAL: Alert and oriented, no focal neuro deficits
SKIN: Warm and dry, skin intact.
MUSCULOSKELETAL: minimal edema, well perfused. neg frankie's sign
PSYCH: Normal and appropriate interaction.
Course
Orders/Labs/Results
Orders:
Orders
06/19/23 09:36
EKG [Electrocardiogram (*1)] Urgent
Reason for Study: Atrial Fibrillation
EKG- Treatment ONCE
06/19/23 09:37
Cardiac Monitoring- Treatment ONCE
IV Insert/Care/Rem.- Treatment PRN
O2 Therapy [RESP] Urgent
Titrate/Wean O2 to maintain O2 sat greater than (%): 90
Special Instructions: Maintain sats >/=90%
Pulse Ox/spot Check [RESP] Urgent
Quantity: 1
Special Instructions: ON ROOM AIR
06/19/23 09:54
Complete Blood Count/With Diff Urgent
Comprehensive Metabolic Panel Urgent
Magnesium Urgent
Comment: ADD ON
NT-proBNP Urgent
Comment: ADD ON
Troponin I Urgent
06/19/23 10:24
Add On- LAB Urgent
Tests Added?: BNP, magnesium
06/19/23 10:25
CR Chest Portable - 1 View Urgent
Comment:
Reason For Exam: sob, chf history, rapid afib
Reason Study Needs to be Portable: Patient Unstable
06/19/23 11:37
0.9% Sodium Chloride 250 ml [Nss] 250 ml IV BOLUS
Diltiazem 125 mg/125 ml Nss [Cardizem] 125 mg in 125 ml IV NOW
Initial dose in mg/hr, then titrate:: 5
Titrate to keep:: Heart rate 80-100 bpm
Titrate by mg/hr:: 5 mg/hr
Frequency of titrations (minutes):: 15
Maximum dose in mg/hr:: 15
06/19/23 12:43
Admit/Transfer Patient As Directed
Co-Sign Provider:
Level of Care: Inpatient admission
Assign to:: IVU
Physician / Group: nicki
Diagnosis: atrial fib with RVR
Reason for Hospitalization: atrial fib with RVR
Expected length of stay greater than two midnights?: Yes
ELOS- Estimated Length of Stay in days: 3
I certify the patient meets the requirements for IP care: Yes
06/19/23 12:46
Code Status As Directed
Resuscitation Status: Full Code
06/19/23 13:00
Urinalysis Reflex To Culture Routine
Date Specimen was Collected: 06/19/23
Time Specimen was Collected: 13:10
06/19/23 13:01
Apixaban [Eliquis] 2.5 mg PO NOW STA
Clopidogrel Bisulfate [Plavix] 75 mg PO NOW STA
Ferrous Sulfate [Feosol] 325 mg PO NOW STA
Midodrine [ProAmatine] 5 mg PO NOW STA
Pantoprazole [Protonix] 40 mg PO NOW STA
06/19/23 13:14
Apixaban [Eliquis] 2.5 mg PO NOW STA
Abnormal Lab Results
06/19/23
09:54
RBC 3.37 L 10^6/uL
(4.20-5.40)
Hgb 10.8 L g/dL
(12.0-16.0)
Hct 34.4 L %
(37.0-47.0)
MCV 102.1 H fL
(81.0-99.0)
MCH 32.0 H pg
(27.0-31.0)
MCHC 31.4 L g/dL
(33.0-37.0)
RDW 15.2 H %
(11.5-14.5)
MPV 11.6 H fL
(7.4-10.4)
Absolute Monos (auto) 1.3 H 10^3/uL
(0.1-0.6)
Monocytes % 12.4 H %
(1.7-9.3)
Sodium 133 L mmol/L
(135-145)
Chloride 96 L mmol/L
(98-107)
Carbon Dioxide 35 H mmol/L
(22-30)
BUN 26 H mg/dl
(7-17)
Calcium 11.0 H mg/dl
(8.4-10.2)
Troponin I 0.049 H* ng/ml
Albumin 3.4 L g/dl
(3.5-5.0)
06/19/23 09:54
06/19/23 09:54
Vital Signs
Initial and Last Documented VS:
Initial Vital Signs
Temp Pulse Resp BP
98.1 F 133 18 106/81
06/19/23 09:35 06/19/23 09:35 06/19/23 09:35 06/19/23 09:35
Last Documented Vital Signs
Temp Pulse Resp BP Pulse Ox
98.1 F 119 19 88/66 100
06/19/23 09:35 06/19/23 13:00 06/19/23 13:00 06/19/23 13:00 06/19/23 11:45
*Critical Care Note
Total Time (30-74mins, 75-104mins- exclusive of procedures): Not Applicable
ED Attending Note
-
Portions of this chart may have been created with voice recognition software.� Occasional wrong word or��sound alike� substitutions may have occurred due to the inherent limitations of voice recognition software.
Discharge Plan
Departure
Patient Disposition: Admit
Date of Disposition: 06/19/23
Time of Disposition: 11:41
Admit to: IMU
Presentation/result/management discussed w/ accepting MD/DO: Hospitalist
Condition: Fair
Covid-19: Not Applicable
Discharge Problem:
Atrial fibrillation with rapid ventricular response
Interventions
Interventions:
*Risk Screen - Suicide Last Done: 06/19/23 09:34
*General Assessment Last Done: 06/19/23 09:34
*Neglect/Abuse Screening Last Done: 06/19/23 09:34
*ED COVID-19 Vaccine History Last Done: 06/19/23 09:55
ED- Cardiac Assessment Last Done: 06/19/23 10:08
ED- Neurological Assessment Last Done: 06/19/23 10:08
ED- Pulmonary Assessment Last Done: 06/19/23 10:08
[2023-06-19 10:34] LABS: Troponin I 0.049 ng/ml
[2023-06-19 10:55] LABS: Magnesium 1.7 mg/dl (1.6-2.3)
--- NOTE | 2023-06-19 10:57 | CON.CAR ---
Addendum entered and electronically signed by Michael Callaway MD 06/19/23 13:58:
I saw and examined the patient.
The DREDGE MASTER's note was reviewed and I agree with the note.
83-year-old woman with a history of multivessel coronary artery disease and previous coronary stenting including LAD stenting 11/11/2022, paroxysmal atrial fibrillation, chronic anticoagulation, pulmonary fibrosis, moderate aortic stenosis and heart
failure with preserved ejection fraction who has had complaints of tiredness and fatigue over the last 3 days and is noted to be in A-fib. Of note her last electrical cardioversion was approximately 1 month ago. Patient's chest x-ray today was
suggestive of heart failure and she received some additional diuretic. Of note patient has low blood pressures which limit options for medical therapy. She is currently maintained on midodrine as well as metoprolol. In ER patient is on IV
Cardizem. Currently comfortable at rest and heart rates in the low 100s.
-Challenging management issue in patient with recurrent symptomatic atrial fibrillation and limited treatment options due to blood pressure in addition antiarrhythmic therapy options are limited due to blood pressure, baseline heart rate and lung
disease. On last ECG in sinus rhythm QTc was in a range that could be considered for use of low-dose dofetilide but she has had other ECGs where her QTc is a bit longer.
-Will review options for rhythm control and rate control with EP. If additional rhythm control required then we could consider cautious use of digoxin.
Original Note:
Consultation
Consultation Request
Date/Time Consultation Requested: 06/19/2023 10:30
Date/Time Consultation Performed: 06/19/2023 10:40
Requesting Provider: JENNY Carey
Performing Provider: JENNY Muro for Dr. Callaway
Reason for Consultation: Atrial fibrillation with RVR
Medical History
-
Chief Complaint: Fatigue
History of Present Illness:
Camille Valdovinos is an 83-year-old female (known to Dr. Mandel, now following with Dr. Ibanez), with MVCAD (most recent PCI mLAD 11/11/2022), paroxysmal atrial fibrillation (on apixaban), hypertension, dyslipidemia (statin intolerant), pulmonary
fibrosis, mild to moderate aortic stenosis, and HFpEF who presented to the emergency department with fatigue. She reports it started on Monday. She found herself significantly fatigued after ambulating to the bathroom. She endorsed some worsening
shortness of breath in addition to fatigue. She presented to the emergency department and was found to be in atrial fibrillation with RVR. She does not have any palpitations and was surprised to find her heart rate so elevated. She was on amiodarone
in the past. This was discontinued during her prior hospitalization (early March). She was cardioverted 05/17/23. She was in sinus rhythm at her 05/31/23 office visit.
Past Medical History
Past Medical History: Arrhythmias (paroxysmal atrial fibrillation), CAD, CHF, Valvular Disease (aortic stenosis) and Other (ILD)
Past Surgical History: Gynecological and Tonsilectomy
Social History
Tobacco: Non-Smoker
Alcohol: None
Drug: None
Living: With Family (currently in SNF, plans to return home with daughter)
Employment: Retired
Family History
Family History: Reviewed & Not Pertinent
Allergies / Home Medications
Allergy/AdvReac Type Severity Reaction Status Date / Time
codeine [Codeine] Allergy Rash Verified 01/16/23 07:53
ethyl alcohol Allergy CHEMICAL Verified 01/16/23 07:53
SENSITIVITY
formaldehyde Allergy chemical Verified 01/16/23 07:53
sensitivity-
allergy
attack,
dry eyes,
wheezing
glycerin Allergy CHEMICAL Verified 01/16/23 07:53
SENSITIVITY
guaifenesin [From Mucinex] Allergy Hives Verified 01/16/23 07:53
Iodinated Contrast Media Allergy Rash/hives Verified 01/16/23 07:53
[Iodinated Contrast Media -
IV Dye]
morphine Allergy DECREASED Verified 01/16/23 07:53
HR
oxycodone HCl [From Percocet] Allergy Hives Verified 01/16/23 07:53
Sulfa (Sulfonamide Allergy throat Verified 01/16/23 07:53
Antibiotics) closes
muscle relaxers Allergy Hyper/tired Uncoded 01/16/23 07:53
seasonal Allergy nasal Uncoded 01/16/23 07:53
congestion/wheeze
�Medication �Instructions �Recorded �Confirmed �Type
nitroglycerin 0.4 mg sublingual 0.4 mg sublingual [id number] PRN 08/01/13 06/19/23 History
tablet chest pain
cholecalciferol (vitamin D3) 50 2,000 units PO DAILY Supplement 07/06/20 06/19/23 History
mcg (2,000 unit) tablet
clopidogrel 75 mg tablet 75 mg PO DAILY CAD 12/22/22 06/19/23 History
ferrous sulfate 325 mg (65 mg 325 mg PO DAILY Supplement 12/22/22 06/19/23 History
iron) tablet
acetaminophen 325 mg tablet 650 mg PO Q4HPRN PRN mild pain 01/16/23 06/19/23 History
apixaban 5 mg tablet 5 mg PO BID Blood Clot 01/16/23 06/19/23 History
Prevention/Tx
calcium carbonate 500 mg-vitamin 1 tab PO BID Supplement 01/16/23 06/19/23 History
D3 5 mcg (200 unit) tablet
metoprolol succinate 25 mg 25 mg PO DAILY #30 tabs 03/30/23 06/19/23 Rx
tablet,extended release 24 hr
midodrine 5 mg tablet 5 mg PO Q8 #90 tabs 03/30/23 06/19/23 Rx
pantoprazole 40 mg tablet,delayed 40 mg PO DAILY Gastrointestinal 04/05/23 06/19/23 History
release (Protonix) Issue
potassium chloride 20 mEq 20 meq PO DAILY 05/17/23 06/19/23 History
tablet,extended release(part/cryst)
sodium chloride 1,000 mg soluble 1,000 mg PO DAILY 05/17/23 06/19/23 History
tablet
sodium chloride-aloe vera nasal 1 ea intranasal BID 05/17/23 06/19/23 History
swab
ascorbic acid (vitamin C) 500 mg 500 mg PO DAILY 06/19/23 06/19/23 History
tablet (Vitamin C)
bisacodyl 10 mg rectal suppository 10 mg TX [id number] PRN if no bm aftr 06/19/23 06/19/23 History
(Dulcolax (bisacodyl)) mom
furosemide 20 mg tablet (Lasix) 20 mg PO MOWEFR 06/19/23 06/19/23 History
furosemide 40 mg tablet 40 mg PO SUTUTHSA Fluid 06/19/23 06/19/23 History
Retention/Swelling
ipratropium 0.5 mg-albuterol 3 mg 3 ml inhalation R BID 06/19/23 06/19/23 History
(2.5 mg base)/3 mL nebulization
soln
magnesium hydroxide 400 mg/5 mL 2,400 mg PO HSPRN PRN constipation 06/19/23 06/19/23 History
oral suspension (Milk of Magnesia)
polyethylene glycol 3350 17 gram 17 g PO DAILYPRN PRN constipation 06/19/23 06/19/23 History
oral powder packet (Miralax)
sennosides 8.6 mg-docusate sodium 1 tab-cap PO Q48H@1830 06/19/23 06/19/23 History
50 mg tablet
Review of Systems
-
History Source: Patient
All other systems: Negative unless noted
Constitutional: Fatigue
Respiratory: Trouble Breathing
Cardiac: No Symptoms
Abdomen/GI: No Symptoms
Physical Exam
Vital Signs
Temp Pulse Resp BP Pulse Ox
98.1 F 141 21 106/81 99
06/19/23 09:35 06/19/23 10:07 06/19/23 10:07 06/19/23 09:37 06/19/23 10:08
Lab Results
06/19/23 09:54
06/19/23 09:54
Troponin I 0.049 ng/ml H* 06/19/23 09:54
Physical Exam
General: Well Developed, Well Nourished, No Apparent Distress and Comfortable
HEENT: Normocephalic, Anicteric and Moist Mucous Membranes
Respiratory: Crackles (coarse) and Non Labored Respirations
Cardiac: S1/S2, Irregular Rhythm and Peripheral Edema (trace ankle edema)
Breast: Deferred by me
GI: Soft, Non Tender, Non Distended and Normal Bowel Sounds
Rectal: Deferred by Provider
Genito-urinary: No Costovertebral Tender
Musculoskeletal: No Clubbing and No Cyanosis
Skin: Warm and Dry
Neuro: AO x 3
Hematologic/Lymphatic: No Lymphadenopathy
Psych: Calm
Impression / Plan
-
Paroxysmal atrial fibrillation, now with RVR
-DCCV 05/17/23, now symptomatic with fatigue
-Amiodarone discontinued given her lung disease (she was on it briefly 11/2022-02/2023)
-She had sinus bradycardia with increased beta-sameer
-Oral Anticoagulation: Apixaban 2.5 mg twice daily, she denies missed doses and abnormal bleeding
-She had APC to bleeding ectasia in duodenum 12/17/2022, no further bleeding
-[id number]: Score at least 6 (Heart failure, HTN, age 75 or more, Vascular disease, female gender)
-Consider dofetilide 125mcg BID (CrCl 31), this requires intensive monitoring
HFpEF, chronic
-Her proBNP is up for her and her weight is slightly above baseline
-She is not orthopneic and denies PND
-Can consider single dose of intravenous diuretic and resume schedule tomorrow
-Follow daily weight
Nonischemic myocardial injury in the setting of tachyarrhythmia
-She denies CP, 0.049 on arrival
-Trend to peak
CAD, stable, chronic
-Multiple stents, most recent 11/11/2022 (mLAD)
-Continue clopidogrel and apixaban.
Aortic stenosis, moderate
Mild to moderate mitral regurgitation
Dyslipidemia, statin intolerant, consider PCSK9 in the outpatient setting
Bronchiectasis/ILD/eosinophilia, managed by Dr. Adame
KILEY, on CPAP
Prior COVID-19 infection, 12/28/2022
Data Reviewed
-
EKG: Report Reviewed by me (Atrial fibrillation with RVR, rate 131)
Radiology: Report Reviewed by me (CXR: Cardiomegaly and mild to moderate CHF with very small bilateral effusions.)
Medical Tests (Nuc Med, Echo etc): Report Reviewed by me (Prior DCCV, LHC, & TTE as above)
Labs: Labs Reviewed by me
Old Records: Reviewed
[2023-06-19 11:03] LABS: NT-proBNP 10000 pg/ml
[2023-06-19] MEDS: CARDIZEM 125 IV (12:00)
--- NOTE | 2023-06-19 12:05 | HPS.HSE ---
Addendum entered and electronically signed by Cristofer Archer MD 06/19/23 16:19:
Seen and examined by me independently in collaboration with the nurse practitioner Rodríguez.
Past medical history/social history/medication/allergies reviewed.
Lab data and imaging data reviewed.
Patient presents with fatigue, lightheadedness and tiredness and noted to be in rapid atrial fibrillation. She is also short of breath on minimal exertion. Chest x-ray suggestive of CHF. Her heart rates were in 130-140s. She recently had a
cardioversion for atrial fibrillation. Admit to hospital for CHF exacerbation and rapid atrial fibrillation. Consult cardiology.
She has a history of ILD and she is currently stable on 2 L. No cough or productive phlegm no fevers or chills. Does not sound like ILD flare.
Original Note:
Family Physician
-
Family Physician: Chemo Palmer,
Chief Complaint
-
sob and lightheaded
History of Present Illness
83-year-old female with a history of interstitial lung disease on chronic oxygen, chronic heart failure with a preserved EF, moderate AAS, paroxysmal A-fib status post cardioversion on 3�13, persistent hypotension with midodrine presented to
hospital lightheaded and short of breath on Monday . Patient stated short of breath worse with activity .stated orthopnea. She was lightheaded. She was hypotensive and tachycardic. Heart rate was in 140s and blood pressure was in the low 90s.
heart rate was 119 pounds on Monday. She has not weighed since then .denied any lower extremity swelling .patient denied palpitation. Patient denied chest pain. Patient denied headache. Patient denied any congestion, cough, fever, chills.
Patient denied abdominal pain, nausea, vomiting, diarrhea. Patient denied dysuria hematuria.
Patient was cardioverted on 05/16.
Upon arrival she was in A-fib with RVR. Heart rate in 100-14os. Initiated on Cardizem drip. Admitting for further management
Medical History
Past Medical History
Past Medical History: Reports Other
Additional Past Medical History:
Chronic heart failure
A-fib
Hyperlipidemia
Bilateral cataract
Hypertension
Fibromyalgia
Cholelithiasis
GERD
Obstructive sleep apnea
Coronary artery disease
Bilateral carotid stenosis
Mild aortic stenosis
Past Surgical History: Reports Other
Additional Past Surgical History:
Stented coronary artery
Tonsillectomy
Hiatal hernia repair
hysterectomy
Bilateral cataract surgery
Cholecystectomy
Cosmetic facial surgery
Social History
Tobacco: Non-smoker
Alcohol: None
Drug: None
Personal: Single
Living: Assisted Living
Family History
Family History: Not pertinent
Allergies / Home Medications
Allergies reflects when Allergies were last updated in [employer].
Home Medications with original date entered in [employer]
Allergy/Medication List:
Allergies
Allergy/AdvReac Type Severity Reaction Status Date / Time
codeine [Codeine] Allergy Rash Verified 01/16/23 07:53
ethyl alcohol Allergy CHEMICAL Verified 01/16/23 07:53
SENSITIVITY
formaldehyde Allergy chemical Verified 01/16/23 07:53
sensitivity-
allergy
attack,
dry eyes,
wheezing
glycerin Allergy CHEMICAL Verified 01/16/23 07:53
SENSITIVITY
guaifenesin [From Mucinex] Allergy Hives Verified 01/16/23 07:53
Iodinated Contrast Media Allergy Rash/hives Verified 01/16/23 07:53
[Iodinated Contrast Media -
IV Dye]
morphine Allergy DECREASED Verified 01/16/23 07:53
HR
oxycodone HCl [From Percocet] Allergy Hives Verified 01/16/23 07:53
Sulfa (Sulfonamide Allergy throat Verified 01/16/23 07:53
Antibiotics) closes
muscle relaxers Allergy Hyper/tired Uncoded 01/16/23 07:53
seasonal Allergy nasal Uncoded 01/16/23 07:53
congestion/wheeze
Home Medications
nitroglycerin 0.4 mg sublingual tablet 0.4 mg sublingual [id number] PRN chest pain 08/01/13
cholecalciferol (vitamin D3) 50 mcg (2,000 unit) tablet 2,000 units PO DAILY Supplement 07/06/20
clopidogrel 75 mg tablet 75 mg PO DAILY CAD 12/22/22
ferrous sulfate 325 mg (65 mg iron) tablet 325 mg PO DAILY Supplement 12/22/22
acetaminophen 325 mg tablet 650 mg PO Q4HPRN PRN mild pain 01/16/23
apixaban 5 mg tablet 5 mg PO BID Blood Clot Prevention/Tx 01/16/23
calcium carbonate 500 mg-vitamin D3 5 mcg (200 unit) tablet 1 tab PO BID Supplement 01/16/23
pantoprazole 40 mg tablet,delayed release (Protonix) 40 mg PO DAILY Gastrointestinal Issue 04/05/23
potassium chloride 20 mEq tablet,extended release(part/cryst) 20 meq PO DAILY Electrolyte Repletion 05/17/23
sodium chloride 1,000 mg soluble tablet 1,000 mg PO DAILY Supplement 05/17/23
sodium chloride-aloe vera nasal swab 1 ea intranasal BID nasal dryness 05/17/23
ascorbic acid (vitamin C) 500 mg tablet (Vitamin C) 500 mg PO DAILY Supplement 06/19/23
bisacodyl 10 mg rectal suppository (Dulcolax (bisacodyl)) 10 mg SD [id number] PRN if no bm aftr mom 06/19/23
furosemide 20 mg tablet (Lasix) 20 mg PO MOWEFR Fluid Retention/Swelling 06/19/23
furosemide 40 mg tablet 40 mg PO SUTUTHSA Fluid Retention/Swelling 06/19/23
ipratropium 0.5 mg-albuterol 3 mg (2.5 mg base)/3 mL nebulization soln 3 ml inhalation R BID Lung/Breathing Issues 06/19/23
magnesium hydroxide 400 mg/5 mL oral suspension (Milk of Magnesia) 2,400 mg PO HSPRN PRN constipation 06/19/23
metoprolol succinate 25 mg tablet,extended release 24 hr 25 mg PO DAILY Blood Pressure 06/19/23
midodrine 5 mg tablet 5 mg PO Q8 Blood Pressure 06/19/23
polyethylene glycol 3350 17 gram oral powder packet (Miralax) 17 g PO DAILYPRN PRN constipation 06/19/23
sennosides 8.6 mg-docusate sodium 50 mg tablet 1 tab-cap PO Q48H@1830 Constipation 06/19/23
Review of Systems
-
Constitutional: Reports No Symptoms
EENT: Reports No Symptoms
Respiratory: Reports Trouble Breathing
Cardiac: Reports No Symptoms
Abdomen/GI: Reports No Symptoms
: Reports No Symptoms
Musculoskeletal: Reports No Symptoms
Skin: Reports No Symptoms
Neurological: Reports Other (Lightheaded)
Endocrine: Reports No Symptoms
Hematologic/Lymphatic: Reports No Symptoms
Psych: Reports No Symptoms
Physical Exam
Vital Signs
Vital Signs
Temp Pulse Resp BP Pulse Ox
98.1 F 141 21 106/81 99
06/19/23 09:35 06/19/23 10:07 06/19/23 10:07 06/19/23 09:37 06/19/23 10:08
Physical Exam
General: Well Developed, Well Nourished and No Apparent Distress
HEENT: NormoCephalic, Moist mucous membranes and Atraumatic
Respiratory: Crackles
Cardiac: Irregular Rhythm and Tachycardia; No Murmur or Rub
GI: Soft, Non Tender, Non Distended and Normal Bowel Sounds; No Organomegaly
Rectal: Deferred by Provider
Musculoskeletal: No Clubbing, No Cyanosis and No Edema
Skin: No Rash
Neuro: AO x 3 and Nonfocal/grossly intact
Psych: Calm
Laboratory Results
-
06/19/23 09:54
06/19/23 09:54
Laboratory Results
Total Bilirubin 0.4 mg/dl (0.2-1.3) 06/19/23 09:54
AST 28 U/L (14-36) 06/19/23 09:54
ALT 15 U/L (0-35) 06/19/23 09:54
Alkaline Phosphatase 83 U/L (38-126) 06/19/23 09:54
Troponin I 0.049 ng/ml H* 06/19/23 09:54
Data Reviewed
-
Diagnostic Radiology: Report Reviewed by me
Lab Data: Labs Reviewed by me
Impression/Plan
-
#fatigue and lightheaded likely from atrial fib with RVR
-HR elevated in 140's
-EKG with atrial fib with RVR
-On Cardizem drip
-Eliquis continued
-Metoprolol continued
-Cardiology consulted
#sob Likely acute on chronic heart failure exacerbation.
-BNP 10,000
-chest x ray with Cardiomegaly and mild to moderate CHF with very small bilateral effusions.
-Furosemide 40 Mg IV daily
-Strict AMY Daily weight
-Fluid restriction
-Cardiology consulted
#chronic hypotension
-At present blood pressure improved
-Midodrine continued
# Coronary artery diseas3
-Status post cardiac stent
-Plavix continued
#anemia of chronic disease
-hgb 10.8
-no active bleeding
-Ferrous sulfate continued
-ctm
#elevated trop likely demand ischemia
#chronic trop
-trend trop
-no c/o chest pain
# History of ILD / Pulmonary Fibrosis / Bronchiectasis
# Chronic Hypoxemic Respiratory Failure
-Uses 2 L at baseline
- DuoNeb continued
# GERD / Duodenal Ectasia, Stable.� No evidence of recurrent bleeding.
-Continue PPI
# Chronic hyponatremia
-Sodium 133
-Sodium chloride continued
DVT Prophylaxis:� Eliquis
Code Status:� Full
[2023-06-19] MEDS: NSS 250 IV (12:09)
[2023-06-19] MEDS: ProAmatine 5 MG PO ×2 (14:12→23:31)
[2023-06-19] MEDS: PROTONIX 40 MG PO (14:12)
[2023-06-19] MEDS: ELIQUIS 2.5 MG PO ×2 (14:12→20:10)
[2023-06-19] MEDS: FEOSOL 325 MG PO (14:13)
[2023-06-19] MEDS: PLAVIX 75 MG PO (14:13)
[2023-06-19 18:44] LABS: Urine Albumin Negative (Neg - Trace); Urine Bilirubin Negative (Negative); Urine Character Clear (Clear); Urine Color Yellow; Urine Glucose Negative (Negative); Urine Ketone Negative (Negative); Urine Leukocyte Trace (Negative); Urine Nitrite Negative (Negative); Urine Occult Blood Negative (Negative); Urine Specific Gravity 1.025 (<1.030); Urine Urobilinogen Negative (Neg - 1+)
[2023-06-19 18:57] LABS: Urine Calcium Oxalate Crystals Present; Urine Red Blood Cell None Seen /HPF (0-2); Urine White Cell 0-2 /HPF (0-5)
[2023-06-19 19:13] LABS: Troponin I 0.072 ng/ml
--- NOTE | 2023-06-19 20:08 | EDRN ---
Report received, introduced to patient she was on bedside commode urinating and having bowl movement, patient was able to transfer to and from bed with minimal help, her repeat troponin came back elevated, tirger texted Susan mares MANAGEMENT NURSE RN to inform her
of results, no new orders, patient asking for something to eat provided sandwich, call lorenzana in reach.
[2023-06-19] MEDS: OSCAL 500 + D 500 MG PO (20:10)
[2023-06-19] MEDS: DUONEB 3 ML INH (20:10)
--- NOTE | 2023-06-19 22:30 | PTCARENOTE ---
Pt admitted to 6- stood and pivoted to the bed and BSC. Plan of care discussed- AFIB and CHF book provided- Afib- in the 80s-100s on the monitor. Dilt gtt running @ 5ml/hr. assessment and admission completed as documented. call lorenzana within reach.
[2023-06-19] MEDS: AYR SALINE NASAL GEL NASAL (23:31)
[2023-06-20] VITALS (15 sets, daily range): BP systolic 98–156; BP diastolic 47–108; PULSE 110; O2SAT 97; BMI 22.7
[2023-06-20 03:22] LABS: Hematocrit 31.1 % (37.0-47.0); Hemoglobin 9.8 g/dL (12.0-16.0); Mean Corp Hgb Conc. 31.5 g/dL (33.0-37.0); Mean Corpuscular Hgb 32.1 pg (27.0-31.0); Mean Platelet Volume 11.9 fL (7.4-10.4); Platelet Count 258 10^3/uL (130-400); Red Blood Cell Count 3.05 10^6/uL (4.20-5.40); Red Cell Dist. Width 15.3 % (11.5-14.5); White Blood Cell Count 8.7 10^3/uL (4.8-10.8)
[2023-06-20 03:44] LABS: Troponin I 0.065 ng/ml
[2023-06-20 03:48] LABS: ALT (SGPT) 13 U/L (0-35); AST (SGOT) 25 U/L (14-36); Alkaline Phosphatase 72 U/L (38-126); Blood Urea Nitrogen 23 mg/dl (7-17); Calcium 10.9 mg/dl (8.4-10.2); Carbon Dioxide 33 mmol/L (22-30); Chloride 99 mmol/L (98-107); Direct Bilirubin 0.3 mg/dl (0.0-0.4); Estimated Creatinine Clearance 31 ml/min; Glucose 101 mg/dl (70-99); HDL Cholesterol 40 mg/dl; LDL Cholesterol, Calculated 115 mg/dl; Magnesium 1.8 mg/dl (1.6-2.3); Potassium 3.9 mmol/L (3.5-5.1); Sodium 136 mmol/L (135-145); Total Bilirubin 0.3 mg/dl (0.2-1.3); Total Cholesterol 186 mg/dl (50-199); Total Protein 5.9 g/dl (6.3-8.2); Triglyceride 159 mg/dl (10-149); Very Low Density Lipoprotein 31 mg/dl (0-30); eGFR 55.21
[2023-06-20 04:17] LABS: TSH Reflex To Free T4 2.23 uIU/ml (0.47-4.68)
[2023-06-20] MEDS: CARDIZEM 125 IV (04:51)
[2023-06-20] MEDS: TYLENOL 650 MG PO ×2 (05:10→09:32)
[2023-06-20] MEDS: DUONEB INH ×2 (07:09→14:07)
[2023-06-20] MEDS: SODIUM CHLORIDE 1 GRAM PO (08:58)
[2023-06-20] MEDS: PROTONIX 40 MG PO (08:58)
[2023-06-20] MEDS: ELIQUIS 2.5 MG PO ×2 (08:58→19:50)
[2023-06-20] MEDS: TOPROL XL 25 MG PO (08:58)
[2023-06-20] MEDS: VITAMIN C 500 MG PO (08:58)
[2023-06-20] MEDS: ProAmatine PO ×2 (08:59→23:11)
[2023-06-20] MEDS: FEOSOL 325 MG PO (08:59)
[2023-06-20] MEDS: KCL 20 MEQ PO (08:59)
[2023-06-20] MEDS: AYR SALINE NASAL GEL 1 APPLIC NASAL ×2 (08:59→19:50)
[2023-06-20] MEDS: LASIX 40 MG IV (08:59)
[2023-06-20] MEDS: PLAVIX 75 MG PO (08:59)
[2023-06-20] MEDS: OSCAL 500 + D 500 MG PO ×2 (08:59→19:50)
[2023-06-20] MEDS: VITAMIN D3 (cholecalciferol) 50 MCG PO (08:59)
--- NOTE | 2023-06-20 10:39 | W.CARD.TIKOS ---
Initiate Tikosyn
-
I verify that the patient has not taken any verapamil (Isoptin/Calan), ketoconazole (Nizoral), cimetidine (Tagamet), trimethoprim (Trimpex), trimethoprim/sulfamethoxazole (Bactrim), megesterol (Megace), prochlorperazine (Compazine),
hydrochlorothiazide (HCTZ), dolutegravir (Tivicay) or any Class I or Class III anti-arrhythmic within the last three days
AND
I verify that the patient has not taken amiodarone within the last THREE months, or that the patient's amiodarone plasma concentration is <0.3 mcg/mL.
Creatinine 1.0 mg/dL (0.6-1.0) 06/20/23 02:59
Estimated Creat Clear 31 ml/min 06/20/23 02:59
I have assessed the baseline QTc interval (using QT for heart rate less than 60 bpm) and deemed the patient is appropriate for Dofetilide therapy. I understand that Tikosyn is contraindicated if the QTc is >440msec (500msec in patients with
ventricular conduction abnormalities).
Baseline QTc (in msec): 420
QTc interval is greater than 440msec without conduction abnormality OR greater than 500msec with a conduction abnormality, but acceptable to proceed per Cardiology attending.
Reason for Administration with Prolonged QTc: Other Atrial Arrhythmia
Ordering Physician: Kody Richards
[2023-06-20] MEDS: TIKOSYN 125 MCG PO ×2 (10:52→21:24)
--- NOTE | 2023-06-20 11:05 | W.PN.HOSP.TC ---
Today's Communication/Plan
-
Continue with Cardizem drip.
Continue with IV Lasix
Check cortisol
Assessment / Plan
Assessment / Plan
#fatigue and lightheaded likely from atrial fib with RVR
-HR elevated -continue to adjust cardizem drip.
-EKG with atrial fib with RVR
- Cards following - eval for rhythm control stratergies
-Eliquis continued
-Metoprolol continued
#sob Likely acute on chronic heart failure exacerbation.
-BNP 10,000
-chest x ray with Cardiomegaly and mild to moderate CHF with very small bilateral effusions.
-Furosemide 40 Mg IV daily
-Strict AMY Daily weight
-Fluid restriction
#chronic hypotension
-At present blood pressure improved
-Midodrine continued
- Check cortisol
# Coronary artery diseas3
-Status post cardiac stent
-Plavix continued
#anemia of chronic disease
-hgb stable compared to baseline
-no active bleeding
-Ferrous sulfate continued
-ctm
#elevated trop likely nonischemic trop elevation
#chronic trop
-trend trop
-no c/o chest pain
# History of ILD / Pulmonary Fibrosis / Bronchiectasis
# Chronic Hypoxemic Respiratory Failure
- no exacerbation
-Uses 2 L at baseline
- DuoNeb continued
# GERD / Duodenal Ectasia, Stable.� No evidence of recurrent bleeding.
-Continue PPI
# Chronic hyponatremia
-Sodium 133
-Sodium chloride continued
DVT Prophylaxis:� Eliquis
Code Status:� Full
Anticipated Discharge: > 48 hours
Subjective/Interval History
-
Date of Service: June 20, 2023
Short of breath with minimal exertion. Also feeling lightheaded when she tries to get up.
No hx of orthostatic hypotension per patient. Midodrine was added last month after cardiac ablation by photo producer. Denies any prior history of hypocortisolism.
Denies any chest pain or palpitation.
Objective Data
-
Labs:
Laboratory Results
06/20/23
02:59
WBC 8.7
Hgb 9.8 L
Hct 31.1 L
Plt Count 258
Sodium 136
Potassium 3.9
Chloride 99
Carbon Dioxide 33 H
BUN 23 H
Creatinine 1.0
Glucose 101 H
Calcium 10.9 H
Total Bilirubin 0.3
AST 25
ALT 13
Alkaline Phosphatase 72
Vital Signs:
Vital Signs
Temp Pulse Resp BP Pulse Ox
97.6 F 88 16 105/51 100
06/20/23 11:03 06/20/23 11:03 06/20/23 11:03 06/20/23 06:51 06/20/23 11:03
I&O
06/19/23 06/20/23 06/21/23
06:59 06:59 06:59
Intake Total 120 / 120
Output Total 300 / 300
Balance -180 / -180
Review of Systems
-
Constitutional: Denies Fever or Chills
EENT: Denies Sore Throat
Respiratory: Denies Cough
Abdomen/GI: Denies Abdominal Pain, Nausea or Vomiting
Neuro: Denies Headache
Physical Exam
-
General: No Apparent Distress
HEENT: Moist Mucous Membranes
Respiratory: Crackles (BL ) and Non Labored Respirations; Negative Wheezes or Accessory Resp Muscle Use
Cardiac: S1/S2, Irregular Rhythm and Tachycardic
GI: Soft and Nontender
Neuro: AO x 3
Data Reviewed
-
Labs: Labs Reviewed by me
--- NOTE | 2023-06-20 11:15 | PTCARENOTE ---
Assumed care at 0700. VSS. Afib on telemetry, HR 90-100s at rest, as high as 150s with activity and becomes BEE. Able to recover within in a few minutes at rest. Reporting chronic lower abdominal 'spasms,' which she uses heat, provided warm blanket,
and Tylenol, given. New orders noted for Tikosyn and stop diltiazem. Patient aware of plan. Currently OOB in chair, encouraged to continue to make needs known.
--- NOTE | 2023-06-20 11:16 | CM ---
Addendum entered by Antonia Miramontes 06/20/23 15:08:
Telephone call to [facility] to check on co-pay for Dofetilide 125 mcg bid. She still has a deductible that has to be met so her first script would be $270.13. [facility] would not tell me the cost after deductible has been met. She uses [facility] and can use the Good RX coupon or #21.62 a month.
Original Note:
Reviewed chart. Met with Mrs. Valdovinos to review discharge plans. She states prior to admission she was at [facility] for SNF/Rehab. She states she was scheduled to go home from [facility] on Monday. She
states prior to going to [facility] she resides with her daughter in a spilt level home. She states her daughter has her own health problems and going through treatment. She states if she can go directly home from here she [facility] Will need to see her current functional level to see if she willhave any skilled care needs. She may need a walker to take home. May benefit from physical and occupational therapy evaluation. Telephone call to
daughter , Estuardo, ([phone]) to update her. Medical work-up in progress. The discharge plan [facility] versus return to [facility] when medically stable.
--- NOTE | 2023-06-20 12:31 | W.PN.CD ---
Today's Communication / Plan
-
Start dofetilide
If not in sinus in 2-3 days will proceed to cardioversion
Not an ideal ablation candidate but can offer ablation consult electively as outpatient
Watch QTc (may need sinus to best assess QTc)
Impression / Plan
-
Paroxysmal atrial fibrillation, now with RVR
-DCCV 05/17/23, now symptomatic with fatigue
-Amiodarone discontinued given her lung disease (she was on it briefly 11/2022-02/2023)
-She had sinus bradycardia with increased beta-sameer
-Oral Anticoagulation: Apixaban 2.5 mg twice daily, she denies missed doses and abnormal bleeding
-She had APC to bleeding ectasia in duodenum 12/17/2022, no further bleeding
-[id number]: Score at least 6 (Heart failure, HTN, age 75 or more, Vascular disease, female gender)
-We will initiate dofetilide 125mcg BID (CrCl 31), this requires intensive monitoring
HFpEF, chronic, compensated
Nonischemic myocardial injury in the setting of tachyarrhythmia, peak 0.072
CAD, stable, chronic, multiple stents, most recent 11/11/2022 (mLAD) => continue clopidogrel and apixaban.
Aortic stenosis, moderate
Mild to moderate mitral regurgitation
Dyslipidemia, statin intolerant, consider PCSK9 in the outpatient setting
Bronchiectasis/ILD/eosinophilia, managed by Dr. Adame
KILEY, on CPAP
Prior COVID-19 infection, 12/28/2022
Physical Exam
Vital Signs/Labs
Vital Signs
Temp Pulse Resp BP Pulse Ox
97.6 F 88 16 119/74 100
06/20/23 11:03 06/20/23 11:03 06/20/23 11:03 06/20/23 11:02 06/20/23 11:03
06/19/23 06/20/23 06/21/23
06:59 06:59 06:59
Actual Weight 54.4 kg
06/20/23 02:59
06/20/23 02:59
Magnesium 1.8 mg/dl (1.6-2.3) 06/20/23 02:59
Triglycerides 159 mg/dl (10-149) H 06/20/23 02:59
LDL Cholesterol, Calc 115 mg/dl 06/20/23 02:59
VLDL Cholesterol, Calc 31 mg/dl (0-30) H 06/20/23 02:59
HDL Cholesterol 40 mg/dl 06/20/23 02:59
06/19/23
09:54
[id number] Pept [id number]
LAB Results
06/19/23 06/19/23 06/20/23
09:54 18:40 02:59
Troponin I 0.049 H* 0.072 H* 0.065 H*
Physical Exam
Constitutional: No acute distress
Cardiovascular: Rhythm/rate is irregular
Respiratory: Respiratory effort normal
Neuro/Psych: Alert
Data Reviewed
-
Date of Service: June 20, 2023
[2023-06-20] MEDS: SENOKOT-S PO (15:23)
[2023-06-20] MEDS: ProAmatine 5 MG PO (15:26)
[2023-06-20] MEDS: DUONEB 3 ML INH (19:31)
--- NOTE | 2023-06-20 23:30 | PTCARENOTE ---
Pt. remains in A-fib this shift, rate 90's-120's, other VSS. QTc following dose #2 Tikosyn 475 ms. No complaints pain/discomfort, pt. sleeping.
[2023-06-21] VITALS (8 sets, daily range): BP systolic 99–128; BP diastolic 50–98; BMI 22.7
[2023-06-21] MEDS: TYLENOL 650 MG PO (04:44)
[2023-06-21 04:52] LABS: Hematocrit 30.3 % (37.0-47.0); Hemoglobin 9.7 g/dL (12.0-16.0); Mean Corpuscular Hgb 31.9 pg (27.0-31.0); Mean Corpuscular Volume 99.7 fL (81.0-99.0); Mean Platelet Volume 11.5 fL (7.4-10.4); Platelet Count 267 10^3/uL (130-400); Red Blood Cell Count 3.04 10^6/uL (4.20-5.40); Red Cell Dist. Width 15.2 % (11.5-14.5); White Blood Cell Count 10.3 10^3/uL (4.8-10.8)
--- NOTE | 2023-06-21 05:09 | DOWNTIME ---
There was a [employer] Downtime on 06/21/2023 from 0100 to 06/21/2023 at 0439. Downtime documentation of patient's care, including medication administrations, has been reconciled in the electronic record per guidelines. Refer to the
patient's paper chart under the miscellaneous tab to see printed paper medication records and downtime forms.
[2023-06-21 05:36] LABS: Blood Urea Nitrogen 24 mg/dl (7-17); Calcium 10.8 mg/dl (8.4-10.2); Carbon Dioxide 34 mmol/L (22-30); Chloride 97 mmol/L (98-107); Estimated Creatinine Clearance 31 ml/min; Glucose 115 mg/dl (70-99); Sodium 136 mmol/L (135-145); eGFR 55.21
[2023-06-21 06:07] LABS: Cortisol, Random 7.8 ug/dl
[2023-06-21] MEDS: DUONEB 3 ML INH ×2 (06:33→20:08)
--- NOTE | 2023-06-21 08:27 | W.PN.CD ---
Addendum entered and electronically signed by Kody Richards MD 06/21/23 08:32:
-
-
Given her severe LA enlargement we may not be able to maintain sinus.
If AFib quickly recurs then proceeding to pacemaker with plans for AV node ablation to follow may be the best next approach.
-
-
Original Note:
Today's Communication / Plan
-
Continue Dofetilide
NPO after MN
Cardioversion tomorrow if not in sinus
Impression / Plan
-
Paroxysmal or perhaps really persistent atrial fibrillation, still with RVR
-DCCV 05/17/23, now symptomatic with fatigue back in AF/RVR
-Amiodarone discontinued given her lung disease (she was on it briefly 11/2022-02/2023)
-She had sinus bradycardia with increased beta-sameer
-Oral Anticoagulation: Apixaban 2.5 mg twice daily, she denies missed doses and abnormal bleeding
-She had APC to bleeding ectasia in duodenum 12/17/2022, no further bleeding
-[id number]: Score at least 6 (Heart failure, HTN, age 75 or more, Vascular disease, female gender)
-We are loading dofetilide 125mcg BID (CrCl 31), this requires intensive monitoring
HFpEF, chronic, compensated
Nonischemic myocardial injury in the setting of tachyarrhythmia, peak 0.072
CAD, stable, chronic, multiple stents, most recent 11/11/2022 (mLAD) => continue clopidogrel and apixaban.
Aortic stenosis, moderate
Mild to moderate mitral regurgitation
Dyslipidemia, statin intolerant, consider PCSK9 in the outpatient setting
Bronchiectasis/ILD/eosinophilia, managed by Dr. Adame
KILEY, on CPAP
Prior COVID-19 infection, 12/28/2022
Physical Exam
Vital Signs/Labs
Vital Signs
Temp Pulse Resp BP Pulse Ox
99.3 F 114 16 109/56 100
06/21/23 04:23 06/21/23 07:00 06/21/23 06:30 06/21/23 06:58 06/21/23 06:30
06/20/23 06/21/23 06/22/23
06:59 06:59 06:59
Actual Weight 54.4 kg 54.5 kg
06/21/23 04:40
06/21/23 04:40
Magnesium 1.8 mg/dl (1.6-2.3) 06/20/23 02:59
Triglycerides 159 mg/dl (10-149) H 06/20/23 02:59
LDL Cholesterol, Calc 115 mg/dl 06/20/23 02:59
VLDL Cholesterol, Calc 31 mg/dl (0-30) H 06/20/23 02:59
HDL Cholesterol 40 mg/dl 06/20/23 02:59
06/19/23
09:54
[id number] Pept [id number]
LAB Results
06/19/23 06/19/23 06/20/23
09:54 18:40 02:59
Troponin I 0.049 H* 0.072 H* 0.065 H*
Physical Exam
Constitutional: No acute distress
EENT: Anicteric
Cardiovascular: Rhythm/rate is irregular and Rub absent
Respiratory: Respiratory effort normal
GI: Soft and Distention absent
Neuro/Psych: Alert
Data Reviewed
-
Date of Service: June 21, 2023
[2023-06-21] MEDS: PROTONIX 40 MG PO (08:36)
--- NOTE | 2023-06-21 08:53 | W.PN.HOSP.TC ---
Addendum entered and electronically signed by Cristofer Archer MD 06/22/23 13:17:
Patient is in need of a semi-electric hospital bed wiht foam mattress due to the need to elevate head of bed above 30 degrees to prevent aspiration
and to facilitate frequent repositioning to prevent bed ulcers and pressure points.
Patient requires a lightweight wheelchair due to ambulatory dysfunction. Patient is unable to self-propel in a standard
wheelchair. A walker has been considered, but is clinically ineffective due to patient's condition.
Patient needs a nebulizer due to chronic lung disease.
Original Note:
Today's Communication/Plan
-
CW Tikosyn load
Assessment / Plan
Assessment / Plan
#fatigue and lightheaded likely from atrial fib with RVR
-HR remains elevated -now on Tikosyn load
-EKG with atrial fib with RVR
- Cards following
-Eliquis continued
-Metoprolol continued
#sob Likely acute on chronic heart failure exacerbation.
-BNP 10,000
-chest x ray with Cardiomegaly and mild to moderate CHF with very small bilateral effusions.
-Furosemide 40 Mg IV daily
-Strict AMY Daily weight
-Fluid restriction
#chronic hypotension
-At present blood pressure improved
-Midodrine continued
- cortisol ok
# Coronary artery diseas3
-Status post cardiac stent
-Plavix continued
#anemia of chronic disease
-hgb stable compared to baseline
-no active bleeding
-Ferrous sulfate continued
-ctm
#elevated trop likely nonischemic trop elevation
#chronic trop
-trend trop
-no c/o chest pain
# History of ILD / Pulmonary Fibrosis / Bronchiectasis
# Chronic Hypoxemic Respiratory Failure
- no exacerbation
-Uses 2 L at baseline
- DuoNeb continued
# GERD / Duodenal Ectasia, Stable.� No evidence of recurrent bleeding.
-Continue PPI
# Chronic hyponatremia
-Sodium 133
-Sodium chloride continued
DVT Prophylaxis:� Eliquis
Code Status:� Full
DW Cards on the unit - if Tikosyn doesnt work , then cardioversion attempt tomorrow
Anticipated Discharge: 24 - 48 hours
Subjective/Interval History
-
Date of Service: June 21, 2023
Denies any chest pain. Still in A-fib but denies any palpitations. No shortness of breath.
Objective Data
-
Labs:
Laboratory Results
06/21/23
04:40
WBC 10.3
Hgb 9.7 L
Hct 30.3 L
Plt Count 267
Sodium 136
Potassium 4.0
Chloride 97 L
Carbon Dioxide 34 H
BUN 24 H
Creatinine 1.0
Glucose 115 H
Calcium 10.8 H
Vital Signs:
Vital Signs
Temp Pulse Resp BP Pulse Ox
98.5 F 114 16 109/56 99
06/21/23 07:00 06/21/23 07:00 06/21/23 07:00 06/21/23 06:58 06/21/23 07:00
I&O
06/20/23 06/21/23 06/22/23
06:59 06:59 06:59
Intake Total 120 / 120 990 / 990
Output Total 300 / 300
Balance -180 / -180 990 / 990
Review of Systems
-
Constitutional: Denies Fever
EENT: Denies Sore Throat
Respiratory: Denies Cough
Abdomen/GI: Denies Abdominal Pain, Nausea or Vomiting
Neuro: Denies Dizzy
Physical Exam
-
General: No Apparent Distress
HEENT: Moist Mucous Membranes
Respiratory: Crackles (as before) and Non Labored Respirations; Negative Wheezes or Accessory Resp Muscle Use
Cardiac: S1/S2, Irregular Rhythm and Tachycardic
GI: Soft
Neuro: AO x 3
Data Reviewed
-
Labs: Labs Reviewed by me
--- NOTE | 2023-06-21 09:01 | PN.CDI ---
CDI
- -
CDI:
Physician Documentation Request
Admit Date: 06/19/23 13:32
Dear Doctor Gianni,
Please review the following and provide your response in the progress notes.
Clinical Indicators:
- 06/20 PN 'Likely acute on chronic heart failure exacerbation'
- 06/20- Cardiology 'HFpEF, chronic, compensated'
- proBNP [id number]
- 06/19 40mg IV Lasix
Please provide further specificity regarding the most likely type and acuity of CHF you are evaluating, treating or monitoring.
Acute on chronic HFpEF
Chronic HFpEF
Other
Use of terms such as suspected, likely, concern for, or probable (associated with a specific diagnosis that is being evaluated, monitored, or treated as if it exists) are acceptable and can be coded in the inpatient setting, when documented at the
time of discharge.
Thank you,
Mariluz Styles RN
CDI Specialist
Please use your independent medical judgment in providing your response.
--- NOTE | 2023-06-21 09:04 | PN.CDI ---
CDI
- -
CDI:
Physician Documentation Request
Admit Date: 06/19/23 13:32
Dear Doctor Gianni,
Please review the following and provide your response in the progress notes.
Clinical Indicators:
- 06/20 Cardiology 'Nonischemic myocardial injury in the setting of tachyarrhythmia'
- 06/20 PN 'elevated trop likely nonischemic trop elevation'
Laboratory Tests
06/19/23 06/19/23 06/20/23
09:54 18:40 02:59
Troponin I 0.049 H* 0.072 H* 0.065 H*
Please clarify the following regarding the documented elevated troponins:
Non-ischemic myocardial injury
Clinically insignificant lab value
Other
Use of terms such as suspected, likely, concern for, or probable (associated with a specific diagnosis that is being evaluated, monitored, or treated as if it exists) are acceptable and can be coded in the inpatient setting, when documented at the
time of discharge.
Thank you,
Mariluz Styles RN
CDI Specialist
Please use your independent medical judgment in providing your response.
[2023-06-21] MEDS: TIKOSYN 125 MCG PO ×2 (09:40→21:02)
[2023-06-21] MEDS: ProAmatine 5 MG PO ×2 (10:41→17:29)
[2023-06-21] MEDS: KCL 20 MEQ PO (10:41)
[2023-06-21] MEDS: VITAMIN D3 (cholecalciferol) 50 MCG PO (10:41)
[2023-06-21] MEDS: ELIQUIS 2.5 MG PO ×2 (10:41→21:02)
[2023-06-21] MEDS: PLAVIX 75 MG PO (10:42)
[2023-06-21] MEDS: FEOSOL 325 MG PO (10:42)
[2023-06-21] MEDS: SODIUM CHLORIDE 1 GRAM PO (10:42)
[2023-06-21] MEDS: TOPROL XL 25 MG PO (10:42)
[2023-06-21] MEDS: LASIX 40 MG IV (10:42)
[2023-06-21] MEDS: VITAMIN C 500 MG PO (10:42)
[2023-06-21] MEDS: OSCAL 500 + D 500 MG PO ×2 (10:42→21:02)
[2023-06-21] MEDS: AYR SALINE NASAL GEL 1 APPLIC NASAL ×2 (10:42→21:13)
--- NOTE | 2023-06-21 12:10 | PTCARENOTE ---
3rd dose QTc reading was 519. RN made Dr. Richards aware. No new orders received. Will continue to monitor.
--- NOTE | 2023-06-21 13:36 | CM ---
Reviewed chart. Met with Mrs. Valdovinos and spoke with daughter Estuardo to review discharge plans. Family is still deciding if they want to go to SNF/Rehab. or go directly home with [facility]. If she goes directly home she will need scripts for
rollator, nebulizer. They will check on [facility] for a shower chair. Mrs. Valdovinos wanted to know cost of getting second generator in the home to use upstairs. The out of pocket cost would be $150.00 a month to rent. Referral sent to [facility]
services. Medical work-up in progress. She only has four days left in her 100 day skilled time. Family also looking in private caregivers at home. The discharge plan is to return home with [facility] and DME versus SNF/Rehab. when
medically stable.
[2023-06-21] MEDS: AYR SALINE NASAL GEL NASAL (21:02)
[2023-06-21] MEDS: ProAmatine PO (23:16)
[2023-06-22] VITALS (8 sets, daily range): BP systolic 117–131; BP diastolic 43–52; PULSE 65; O2SAT 100
[2023-06-22] MEDS: TYLENOL 650 MG PO ×2 (02:59→21:08)
[2023-06-22 03:30] LABS: Hematocrit 30.5 % (37.0-47.0); Hemoglobin 9.9 g/dL (12.0-16.0); Mean Corp Hgb Conc. 32.5 g/dL (33.0-37.0); Mean Corpuscular Hgb 32.1 pg (27.0-31.0); Mean Platelet Volume 11.7 fL (7.4-10.4); Platelet Count 296 10^3/uL (130-400); Red Blood Cell Count 3.08 10^6/uL (4.20-5.40); Red Cell Dist. Width 15.2 % (11.5-14.5); White Blood Cell Count 11.3 10^3/uL (4.8-10.8)
[2023-06-22 03:35] LABS: Blood Urea Nitrogen 25 mg/dl (7-17); Calcium 11.1 mg/dl (8.4-10.2); Carbon Dioxide 33 mmol/L (22-30); Chloride 95 mmol/L (98-107); Estimated Creatinine Clearance 28 ml/min; Glucose 102 mg/dl (70-99); Potassium 4.3 mmol/L (3.5-5.1); Sodium 136 mmol/L (135-145); eGFR 49.24
[2023-06-22] MEDS: DUONEB 3 ML INH ×2 (07:30→19:38)
[2023-06-22] MEDS: LASIX 40 MG IV (08:19)
[2023-06-22] MEDS: FLUSH (NSS) 1 FLUSH IV (08:20)
[2023-06-22] MEDS: TIKOSYN 125 MCG PO ×2 (08:21→21:02)
[2023-06-22] MEDS: ELIQUIS 2.5 MG PO ×2 (08:21→21:03)
[2023-06-22] MEDS: PROTONIX 40 MG PO (08:21)
[2023-06-22] MEDS: VITAMIN C 500 MG PO (08:21)
[2023-06-22] MEDS: OSCAL 500 + D 500 MG PO (08:21)
[2023-06-22] MEDS: FEOSOL 325 MG PO (08:22)
[2023-06-22] MEDS: ProAmatine 5 MG PO ×2 (08:22→23:25)
[2023-06-22] MEDS: PLAVIX 75 MG PO (08:23)
[2023-06-22] MEDS: SODIUM CHLORIDE 1 GRAM PO (08:23)
[2023-06-22] MEDS: AYR SALINE NASAL GEL 1 APPLIC NASAL ×2 (08:23→21:03)
[2023-06-22] MEDS: VITAMIN D3 (cholecalciferol) 50 MCG PO (08:23)
[2023-06-22] MEDS: TOPROL XL 25 MG PO (08:23)
[2023-06-22] MEDS: KCL 20 MEQ PO (08:23)
--- NOTE | 2023-06-22 08:55 | W.PN.CD ---
Today's Communication / Plan
-
continue loading dofetilide 125mcg BID
she received IV lasix today
-no more IV lasix
-trend Cr, and assess for PO lasix tomorrow
Impression / Plan
-
Paroxysmal or perhaps really persistent atrial fibrillation, with RVR
-DCCV 05/17/23, now admitted symptomatic with fatigue back in AF/RVR
-Amiodarone discontinued previously given her lung disease (she was on it briefly 11/2022-02/2023)
-She had sinus bradycardia with increased beta-sameer previously
-Oral Anticoagulation: Apixaban 2.5 mg twice daily, she denies missed doses and abnormal bleeding
-She had APC to bleeding ectasia in duodenum 12/17/2022, no further bleeding
-[id number]: Score at least 6 (Heart failure, HTN, age 75 or more, Vascular disease, female gender)
-continue loading dofetilide 125mcg BID: this requires intensive monitoring of EKG and tele
HFpEF, acute on chronic: improved s/p IV lasix
-at home, she alternates 20mg and 40mg daily dosing
-she received IV lasix today
-no more IV lasix
-trend Cr, and assess for PO lasix tomorrow
Nonischemic myocardial injury in the setting of tachyarrhythmia, peak 0.072
CAD, stable, chronic, multiple stents, most recent 11/11/2022 (mLAD) => continue clopidogrel and apixaban.
Aortic stenosis, moderate
Mild to moderate mitral regurgitation
Dyslipidemia, statin intolerant, consider PCSK9 in the outpatient setting
Bronchiectasis/ILD/eosinophilia, managed by Dr. Adame
KILEY, on CPAP
Prior COVID-19 infection, 12/28/2022
Physical Exam
Vital Signs/Labs
Vital Signs
Temp Pulse Resp BP Pulse Ox
98.6 F 70 15 120/52 98
06/21/23 19:37 06/22/23 08:23 06/22/23 07:43 06/22/23 08:23 06/22/23 07:43
06/21/23 06/22/23 06/23/23
06:59 06:59 06:59
Actual Weight 54.5 kg
06/22/23 02:55
06/22/23 02:55
Magnesium 1.8 mg/dl (1.6-2.3) 06/20/23 02:59
Triglycerides 159 mg/dl (10-149) H 06/20/23 02:59
LDL Cholesterol, Calc 115 mg/dl 06/20/23 02:59
VLDL Cholesterol, Calc 31 mg/dl (0-30) H 06/20/23 02:59
HDL Cholesterol 40 mg/dl 06/20/23 02:59
06/19/23
09:54
Oys-R-Deoatkjjnag Pept [id number]
LAB Results
06/19/23 06/19/23 06/20/23
09:54 18:40 02:59
Troponin I 0.049 H* 0.072 H* 0.065 H*
Physical Exam
Constitutional: No acute distress and Comfortable
EENT: Moist mucous membranes
Cardiovascular: Rhythm & rate is regular, Pedal edema is absent, JVD pressure is normal and Systolic murmur present
Respiratory: Respiratory effort normal and Lungs clear to auscul.
GI: Soft, Distention absent and Flat
Neuro/Psych: AO x 3
Data Reviewed
-
Date of Service: June 22, 2023
EKG: Tracing Personally Visualized and interpreted (sinus rhythm and QTc 460 on EKG)
Labs: Labs Reviewed by me
--- NOTE | 2023-06-22 12:56 | W.PN.HOSP.TC ---
Addendum entered and electronically signed by Cristofer Archer MD 06/26/23 16:13:
Elevated troponin secondary to nonischemic myocardial injury
HF -acute on chronic CHF
Addendum entered and electronically signed by Cristofer Archre MD 06/22/23 14:06:
The patient will need a hospital bed. Due to CHF and idiopathic Lung Disease, the patient requires frequent and immediate repositioning of the body in ways not feasible with an ordinary bed. The patient requires the head of the bed to be elevated
more than 30 degrees most of the time due to congestive heart failure and idiopathic Lung Disease.
Patient will require a heavy duty wheelchair because she is unable to ambulate greater than 100 feet with a rolling walker due to ambulatory dysfunction secondary to CHF and Idiopathic Lung Disease. Patient requires a heavy duty wheelchair for
MRALD's. Patient is able to safely propel a heavy duty wheelchair that weighs more than 36 pounds. Patient has sufficient space within the home to accommodate the equipment.
Patient will require Duo Neb treatments BID for CHF and idiopathic Lung Disease.
Original Note:
Today's Communication/Plan
-
continue Tikosyn
DC planning
Assessment / Plan
Assessment / Plan
#Fatigue and lightheaded likely from atrial fib with RVR
-On Tikosyn load
- Patient now in sinus rhythm
- Cards following
-Eliquis continued
-Metoprolol continued
#sob Likely acute on chronic heart failure exacerbation.
-BNP 10,000
-chest x ray with Cardiomegaly and mild to moderate CHF with very small bilateral effusions.
-Furosemide per cards
-Strict AMY Daily weight
-Fluid restriction
#chronic hypotension
-At present blood pressure improved
-Midodrine continued
- cortisol ok
# Coronary artery diseas3
-Status post cardiac stent
-Plavix continued
#anemia of chronic disease
-hgb stable compared to baseline
-no active bleeding
-Ferrous sulfate continued
-ctm
#elevated trop likely nonischemic trop elevation
#chronic trop
-trend trop
-no c/o chest pain
# History of ILD / Pulmonary Fibrosis / Bronchiectasis
# Chronic Hypoxemic Respiratory Failure
- no exacerbation
-Uses 2 L at baseline
- DuoNeb continued
# GERD / Duodenal Ectasia, Stable.� No evidence of recurrent bleeding.
-Continue PPI
# Chronic hyponatremia
-Sodium 133
-Sodium chloride continued
DVT Prophylaxis:� Eliquis
Code Status:� Full
Likely dc in am if remains stable
Anticipated Discharge: Within 24 hours
Subjective/Interval History
-
Date of Service: June 22, 2023
back in sinus rhythm. Denies any chest pain . No shortness of breath. No nausea vomiting.
Objective Data
-
Labs:
Laboratory Results
06/22/23
02:55
WBC 11.3 H
Hgb 9.9 L
Hct 30.5 L
Plt Count 296
Sodium 136
Potassium 4.3
Chloride 95 L
Carbon Dioxide 33 H
BUN 25 H
Creatinine 1.1 H
Glucose 102 H
Calcium 11.1 H
Vital Signs:
Vital Signs
Temp Pulse Resp BP Pulse Ox
98.2 F 68 16 127/52 98
06/22/23 12:37 06/22/23 12:00 06/22/23 12:37 06/22/23 08:30 06/22/23 12:37
I&O
04/17/24 04/18/24 04/19/24
06:59 06:59 06:59
Intake Total 990 / 990 240 / 240
Balance 990 / 990 240 / 240
Review of Systems
-
Constitutional: Denies Fever
EENT: Denies Sore Throat
Respiratory: Denies Cough
Neuro: Denies Dizzy
Physical Exam
-
General: No Apparent Distress
HEENT: Moist Mucous Membranes
Respiratory: Crackles (BL coarse crackles) and Non Labored Respirations; Negative Wheezes or Accessory Resp Muscle Use
Cardiac: Regular Rhythm and S1/S2
GI: Soft
Neuro: AO x 3
Psych: Calm
Data Reviewed
-
Labs: Labs Reviewed by me
--- NOTE | 2023-06-22 13:40 | CM ---
patient seen and examined and will require a hospital bed, nebulizer treatments and a heavy duty wheelchair to to the following:
1. Patient will require Duo Neb treatments BID for CHF and idiopathic Lung Disease.
2. Patient will require a heavy duty wheelchair because she is unable to ambulate greater than 100 feet with a rolling walker due to ambulatory dysfunction secondary to CHF and Idiopathic Lung Disease. Patient requires a heavy duty wheelchair for
MRALD's. Patient is able to safely propel a heavy duty wheelchair that weighs more than 36 pounds. Patient has sufficient space within the home to accommodate the equipment.
3. The patient will need a hospital bed. Due to CHF and idiopathic Lung Disease, the patient requires frequent and immediate repositioning of the body in ways not feasible with an ordinary bed. The patient requires the head of the bed to be
elevated more than 30 degrees most of the time due to congestive heart failure and idiopathic Lung Disease.
--- NOTE | 2023-06-22 13:41 | CM ---
Reviewed chart. Telephone call to daughter to review discharge plans. Reviewed DME with her. Daughter states they would like a wheelchair, hospital bed and Nebulizer . They will look for a shower chair on line. We reviewed SNF/Rehab.
states she only has four days of SNF/Rehab. time. She is declining SNF at this time. Telephone call to [facility] who states they can accept referral. Updated them regarding tentative discharge date. Telephone call to [facility] to make referral . Referral sent. Medical work-up in progress. The discharge plan is to return home with [facility] . Telephone call to [facility]. They do not have Dofetltilde in stock. They would have to order it.
She will need a three day script to go to [facility] to take home with her. Medical work-up in progress. The discharge plan is to return home with [facility] when medically stable.
--- NOTE | 2023-06-22 15:17 | PTCARENOTE ---
received patient this am. monitor shows NSR, VSS. INT in left ac, reddened, warm to touch. D/C'd, and restarted in right arm #22 P.warm compress applied to left ac. patient wears chronic o2 on 2 LNC. patient can use walker to ambulate to BR, scott.
well although still weak. instructed patient that she will be OOB for every meal today, patient verbalizes understanding.
[2023-06-22] MEDS: ProAmatine PO (15:58)
[2023-06-22] MEDS: SENOKOT-S 1 TABLET PO (17:17)
--- NOTE | 2023-06-22 22:06 | PTCARENOTE ---
Pt AAOx3- plan of care discussed- OOB at change of shift- ambulated to the bed as a stand by assist with the RW. VSS- 6th dose of Tikosyn given per MAR- SR on the monitor.
[2023-06-23] VITALS (9 sets, daily range): BP systolic 111–146; BP diastolic 32–68; PULSE 70; BMI 22.5
[2023-06-23] MEDS: TYLENOL 650 MG PO (01:17)
[2023-06-23 05:30] LABS: Blood Urea Nitrogen 24 mg/dl (7-17); Calcium 10.7 mg/dl (8.4-10.2); Carbon Dioxide 32 mmol/L (22-30); Chloride 97 mmol/L (98-107); Estimated Creatinine Clearance 31 ml/min; Glucose 86 mg/dl (70-99); Potassium 3.8 mmol/L (3.5-5.1); Sodium 136 mmol/L (135-145); eGFR 55.21
[2023-06-23] MEDS: DUONEB 3 ML INH (07:10)
--- NOTE | 2023-06-23 08:23 | W.PN.HOSP.TC ---
Addendum entered and electronically signed by Constance Sanford MD 06/23/23 09:06:
Patient needs a nebulizer due to chronic lung disease/CHF/bronchiectasis. Treatment is BID.
Original Note:
Today's Communication/Plan
-
await cards for clearance for d/c
assess for home O2
Assessment / Plan
Assessment / Plan
pt is an 83 year old female
Fatigue and lightheaded likely from paroxysmal atrial fib with RVR but cards cannot rule out persistent afib--finished tikosyn load--apprec cards--cont eliquis/metoprolol
acute on chronic diastolic heart failure exacerbation with preserved EF --fuid restriction and diureticis
chronic hypotension--midodrine dependent--cortisol ok
Coronary artery disease--Status post cardiac stent--Plavix continued
anemia of chronic disease--hgb stable compared to baseline--no active bleeding-Ferrous sulfate continued
elevated trop likely nonischemic myocardial injury--no c/o chest pain
History of ILD/Pulmonary Fibrosis/Bronchiectasis--pt does NOT wear O2 at home--may need to assess for home O2--DuoNeb continued
GERD/Duodenal Ectasia, Stable.� No evidence of recurrent bleeding--Continue PPI
Chronic hyponatremia --Sodium chloride continued
DVT Prophylaxis:� Eliquis
Code Status:� Full
Anticipated Discharge: Today
Subjective/Interval History
-
Date of Service: June 23, 2023
pt says cardiology will clear her for d/c
tells me she does not wear O2 at home
Objective Data
-
Labs:
Laboratory Results
06/23/23
04:37
Sodium 136
Potassium 3.8
Chloride 97 L
Carbon Dioxide 32 H
BUN 24 H
Creatinine 1.0
Glucose 86
Calcium 10.7 H
Vital Signs:
max temp for 24 hours
06/22/23
23:40
Temp 98.5 F
Vital Signs
Temp Pulse Resp BP Pulse Ox
98 F 65 14 121/46 99
06/23/23 06:45 06/23/23 08:00 06/23/23 07:12 06/23/23 06:47 06/23/23 06:45
I&O
06/22/23 06/23/23 06/24/23
06:59 06:59 06:59
Intake Total 240 / 240
Balance 240 / 240
Review of Systems
-
All other systems: Reviewed and negative
Physical Exam
-
General: Well Developed, Well Nourished and No Apparent Distress
HEENT: Normocephalic, Atraumatic and Oxygen
Respiratory: Clear to Auscultation; Negative Wheezes or Rhonchi
Cardiac: Regular Rhythm, S1/S2 and Murmur
GI: Soft, Nontender, Nondistended and Normal Bowel Sounds
Musculoskeletal: No Clubbing, No Cyanosis and No Edema
Skin: Warm
Neuro: Awake and Alert
Psych: Calm
--- NOTE | 2023-06-23 08:40 | PTCARENOTE ---
Rec'd pt AAOx3 w/no c/o pain or SOB at this time. Pt w/VS stable w/BP 121/46, HR 60's. Pt OOB this AM to the for breakfast. Pt w/no addtl needs at this time. Call lorenzana within reach. Plan of care ongoing.
--- NOTE | 2023-06-23 08:51 | W.PN.CD ---
Today's Communication / Plan
-
she has completed load of tikosyn 125mcg q12hr: continue
-QTc has been acceptable
resume lasix at 20mg PO daily
BMP next week
we will arrange for follow up with us
Impression / Plan
-
Paroxysmal or perhaps really persistent atrial fibrillation, with RVR
-DCCV 05/17/23, now admitted symptomatic with fatigue back in AF/RVR
-Amiodarone discontinued previously given her lung disease (she was on it briefly 11/2022-02/2023)
-She had sinus bradycardia with increased beta-sameer previously
-Oral Anticoagulation: Apixaban 2.5 mg twice daily, she denies missed doses and abnormal bleeding
-She had APC to bleeding ectasia in duodenum 12/17/2022, no further bleeding
-[id number]: Score at least 6 (Heart failure, HTN, age 75 or more, Vascular disease, female gender)
-QTc has been acceptable
-continue dofetilide 125mcg q12hr
HFpEF, acute on chronic: improved s/p IV lasix
-resume lasix at 20mg PO daily
Nonischemic myocardial injury in the setting of tachyarrhythmia, peak 0.072
CAD, stable, chronic, multiple stents, most recent 11/11/2022 (mLAD) => continue clopidogrel and apixaban.
Aortic stenosis, moderate
Mild to moderate mitral regurgitation
Dyslipidemia, statin intolerant, consider PCSK9 in the outpatient setting
Bronchiectasis/ILD/eosinophilia, managed by Dr. Adame
KILEY, on CPAP
Prior COVID-19 infection, 12/28/2022
Physical Exam
Vital Signs/Labs
Vital Signs
Temp Pulse Resp BP Pulse Ox
98 F 65 14 121/46 99
06/23/23 06:45 06/23/23 08:00 06/23/23 07:12 06/23/23 06:47 04/19/24 06:45
06/22/23 06/23/23 06/24/23
06:59 06:59 06:59
Actual Weight 54.1 kg
06/22/23 02:55
06/23/23 04:37
Magnesium 1.8 mg/dl (1.6-2.3) 06/20/23 02:59
Triglycerides 159 mg/dl (10-149) H 06/20/23 02:59
LDL Cholesterol, Calc 115 mg/dl 06/20/23 02:59
VLDL Cholesterol, Calc 31 mg/dl (0-30) H 06/20/23 02:59
HDL Cholesterol 40 mg/dl 06/20/23 02:59
06/19/23
09:54
Lxj-D-Jfqooynwomb Pept [id number]
Physical Exam
Constitutional: No acute distress and Comfortable
EENT: Moist mucous membranes
Cardiovascular: Rhythm & rate is regular, Pedal edema is absent, JVD pressure is normal and Systolic murmur present
Respiratory: Respiratory effort normal and Lungs clear to auscul.
GI: Soft, Distention absent and Flat
Neuro/Psych: AO x 3
Data Reviewed
-
Date of Service: June 23, 2023
EKG: Tracing Personally Visualized and interpreted (QTc under 500; tele shows NSR/SB, no arrhythmia)
Labs: Labs Reviewed by me
[2023-06-23] MEDS: SODIUM CHLORIDE 1 GRAM PO (09:55)
[2023-06-23] MEDS: TIKOSYN 125 MCG PO (09:55)
[2023-06-23] MEDS: PLAVIX 75 MG PO (09:55)
[2023-06-23] MEDS: KCL 20 MEQ PO (09:56)
[2023-06-23] MEDS: LASIX 20 MG PO (09:56)
[2023-06-23] MEDS: TOPROL XL 25 MG PO (09:56)
[2023-06-23] MEDS: PROTONIX 40 MG PO (09:56)
[2023-06-23] MEDS: VITAMIN C 500 MG PO (09:56)
[2023-06-23] MEDS: ELIQUIS 2.5 MG PO (09:56)
[2023-06-23] MEDS: FEOSOL 325 MG PO (09:56)
[2023-06-23] MEDS: ProAmatine PO ×3 (09:56→15:22)
[2023-06-23] MEDS: AYR SALINE NASAL GEL 1 APPLIC NASAL (09:59)
--- NOTE | 2023-06-23 13:59 | CM ---
Addendum entered by Antonia Miramontes 06/23/23 15:23:
Spoke with [facility] to check on DME. Hospital bed and Nebulizer will not be there until Monday. ordered an inhaler to use until the Nebulizer get delivered.
Original Note:
Reviewed chart. Met with Mrs. Roberts to review discharge plans. She states she received a phone call and states they can not deliver the bed until Monday. Telephone call to [facility] to check on status of nebs and medications. Also asked
them to check on bed. Telephone call to daughter Estuardo to let her know about discharge. Awaiting call back from [facility] regarding bed and medications. Medical work-up in progress. The discharge plan is to return home with [facility]
when medically stable.
--- NOTE | 2023-06-23 14:15 | CHAP ---
Emotional and spiritual support provided for Camille, who called to ask for prayer. Very grateful for better health and family, and a little nervous about returning home for the first time since [place].
--- NOTE | 2023-06-23 18:40 | PTCARENOTE ---
Pt discharged to home w/son-in-law & daughter providing transportation home. Daughter will be staying w/pt through the weekend. Pt's telemetry & IV line discontinued. Pt transported out via her own wheelchair w/staff carrying out pt belongings and
escorting pt to door.
--- NOTE | 2023-06-24 06:24 | W.DCSUMMARY ---
Discharge Summary
Discharge Data
Date of Admission: 06/19/23
Date of Discharge: 06/23/23
-
Pending Results: No
Hospital Course
Primary care physician : Chemo Palmer
Principal Discharge diagnosis : Fatigue and lightheadedness due to paroxysmal atrial fibrillation with rapid ventricular response, acute on chronic diastolic congestive heart failure exacerbation
Chronic Discharge diagnosis : Chronic hypotension, coronary artery disease, anemia of chronic disease, nonischemic myocardial injury with elevated troponin, history of interstitial lung disease/pulmonary fibrosis/bronchiectasis, gastroesophageal
reflux disease/duodenal ectasia, chronic hyponatremia
Hospital Course : Patient is an 83-year-old female with a history of chronic diastolic heart failure with preserved ejection fraction, interstitial lung disease who does not wear oxygen at home, paroxysmal atrial fibrillation who presented with
lightheadedness and shortness of breath on the Monday prior to admission. Patient stated she was short of breath which was worse with activity. She was also lightheaded, hypotensive, and tachycardic. She denied any lower extremity swelling but
had not weighed herself recently. Upon arrival she was in atrial fibrillation with rapid ventricular response. Patient was actually cardioverted on May 17, 2023. She was started on a Cardizem drip and the patient was admitted.
Problem #1: Fatigue and lightheadedness due to paroxysmal atrial fibrillation with rapid ventricular response. Patient was admitted and seen in consultation by cardiology. Echocardiogram was deferred as she just had one on March 05, 2023. She
was initially placed on a Cardizem drip. She had recent cardioversion May 17, 2023 as mentioned above. Cardizem drip was discontinued in favor of Tikosyn loading per cardiology due to sinus bradycardia with increased blocking previously.
Anticoagulation was continued at 2.5 mg of Eliquis twice daily.
Problem #2: Acute on chronic diastolic congestive heart failure exacerbation. Chest x-ray done on admission showed cardiomegaly with mild to moderate congestive heart failure and very small bilateral effusions. Patient was placed on IV Lasix which
was eventually converted to 20 mg of oral Lasix daily. Previously she had been on 20 mg few times per week. We did also continue Plavix along with this given her history of coronary artery disease with multiple stents. Weights improved from 59.3
kg on admission down to 54.1 kg on the day of discharge.
Problem #3: All other medical issues. These include Chronic hypotension, coronary artery disease, anemia of chronic disease, nonischemic myocardial injury with elevated troponin, history of interstitial lung disease/pulmonary
fibrosis/bronchiectasis, gastroesophageal reflux disease/duodenal ectasia, chronic hyponatremia. These medical issues were stable during her hospitalization. Medications were continued as able.
In regards to her other medical issues, patient was in need of a hospital bed, nebulizers, and a heavy-duty wheelchair. Patient had been recently in a alf facility for 3 months and had used up her rehab days. She is being discharged
home with visiting nurses. Patient is stable for discharge home at this time. If there are any questions regarding this dictation or her hospital stay, please not hesitate to call. Our office number is [phone].
Time for discharge 40 minutes.
Discharge Plan
-
Patient Disposition: Home with Home Care
Discharge Diagnosis/Procedures: Paroxysmal atrial fibrillation with rapid ventricular response, acute on chronic diastolic congestive heart failure exacerbation, chronic hypotension, coronary artery disease, anemia of chronic disease, nonischemic
myocardial injury troponin elevation, history of interstitial lung disease/pulmonary fibrosis/bronchiectasis, gastroesophageal reflux disease with duodenal ectasia, chronic hyponatremia
Condition: Good
Diet: Low Cholesterol and 2 Gram Sodium
Activity: As tolerated
Driving Restrictions: As prior to admission
Bathing Restrictions: None
Referrals:
Sona Sanders NP [Specified Professional Personl] - 06/29/23 9:40 am
Chemo Palmer DO [Family Provider] - in less than 1 week
Additional Discharge Medication Instructions: They cannot get your nebulizers for a few days. I have given you albuterol and Atrovent inhalers. Please take those until you get your nebulizers. Once you have received your nebulizers you can stop
the inhalers.
Prescriptions:
New
dofetilide 125 mcg Capsule
125 mcg PO Q12H Qty: 60 0RF
furosemide 20 mg Tablet
20 mg PO DAILY Qty: 30 0RF
albuterol sulfate [Ventolin HFA] 90 mcg/actuation HFA aerosol inhaler
2 puff inhalation QID Qty: 8.5 0RF
Rx Instructions:
take until you get your nebulizers
Atrovent HFA 17 mcg/actuation HFA aerosol inhaler
2 puff inhalation QID Qty: 12.9 0RF
Rx Instructions:
take until you get your nebulzier
Eliquis 2.5 mg Tablet
2.5 mg PO BID Qty: 60 0RF
calcium carbonate-vitamin D3 [Oyster Shell Calcium-Vit D3] 500 mg-5 mcg (200 unit) Tablet
1 tab PO BID Qty: 30 0RF
cholecalciferol (vitamin D3) 50 mcg (2,000 unit) Tablet
50 mcg PO DAILY Qty: 30 0RF
clopidogrel 75 mg Tablet
75 mg PO DAILY Qty: 30 0RF
ferrous sulfate [FeroSul] 325 mg (65 mg iron) Tablet
325 mg PO DAILY Qty: 30 0RF
ipratropium-albuterol 0.5 mg-3 mg(2.5 mg base)/3 mL Solution For Nebulization
3 ml inhalation R BID Qty: 180 0RF
Rx Instructions:
start once you get your neb machine then stop inhalers
metoprolol succinate 25 mg Tablet Extended Release 24 Hr
25 mg PO DAILY Qty: 30 0RF
midodrine 5 mg Tablet
5 mg PO Q8 Qty: 60 0RF
nitroglycerin 0.4 mg tablet, sublingual
0.4 mg sublingual Q5-15M PRN (Reason: chest pain) Qty: 30 0RF
potassium chloride 20 mEq Tablet,Er Particles/Crystals
20 meq PO DAILY Qty: 30 0RF
pantoprazole 40 mg Tablet,Delayed Release (Dr/Ec)
40 mg PO DAILY Qty: 30 0RF
sodium chloride 1,000 mg Tablet,Soluble
1,000 mg PO DAILY Qty: 30 0RF
ascorbic acid (vitamin C) [Vitamin C] 500 mg Tablet
500 mg PO DAILY Qty: 30 0RF
Continued
acetaminophen 325 mg Tablet
650 mg PO Q4HPRN PRN (Reason: mild pain)
polyethylene glycol 3350 [Miralax] 17 gram Powder In Packet
17 g PO DAILYPRN PRN (Reason: constipation)
sennosides-docusate sodium 8.6-50 mg Tablet
1 tab-cap PO Q48H@1830
magnesium hydroxide [Milk of Magnesia] 400 mg/5 mL Suspension
2,400 mg PO HSPRN PRN (Reason: constipation)
bisacodyl [Dulcolax (bisacodyl)] 10 mg Suppository
10 mg KY [id number] PRN (Reason: if no bm aftr mom)
Discontinued
nitroglycerin 0.4 MG tablet, sublingual
0.4 mg sublingual [id number] PRN (Reason: chest pain)
cholecalciferol (vitamin D3) 2,000 UNITS tablet
2,000 units PO DAILY
ferrous sulfate 325 mg (65 mg iron) Tablet
325 mg PO DAILY
clopidogrel 75 mg tablet
75 mg PO DAILY
calcium carbonate-vitamin D3 500 mg-5 mcg (200 unit) Tablet
1 tab PO BID
pantoprazole [Protonix] 40 mg Tablet,Delayed Release (Dr/Ec)
40 mg PO DAILY
potassium chloride 20 mEq Tablet,Er Particles/Crystals
20 meq PO DAILY
sodium chloride-aloe vera Swab
1 ea INTRANASAL BID
sodium chloride 1,000 mg Tablet,Soluble
1,000 mg PO DAILY
ipratropium-albuterol 0.5 mg-3 mg(2.5 mg base)/3 mL Solution For Nebulization
3 ml INHALATION R BID
ascorbic acid (vitamin C) [Vitamin C] 500 mg Tablet
500 mg PO DAILY
furosemide [Lasix] 20 mg Tablet
20 mg PO MOWEFR
furosemide 40 mg tablet
40 mg PO SUTUTHSA
midodrine 5 mg tablet
5 mg PO Q8
Rx Instructions:
hold for SBP > 120
metoprolol succinate 25 mg tablet extended release 24 hr
25 mg PO DAILY
Eliquis 2.5 mg Tablet
2.5 mg PO BID
Discharge Orders:
Discharge Patient (As Directed); Ordered 06/23/23
Ordered By: Constance Sanford
Care Plan Goals
Care Plan Goals:
Problem: Readiness for enhanced knowledge related to diagnosis and treatment plan
Goal: Understand your diagnosis and treatment plan needs, including medications if applicable.
Instructions: Know your diagnosis, underlying causes and treatment plan options, including medications if applicable. Consult with your health care team to learn about your diagnosis and treatment plan, including medications if applicable.
Discharge Date and Time
Discharge Date/Time: 06/23/23 18:45
Print Language: [place]AST [place]
== END 2023-06-23 18:45 | disposition home health service (06) | DRG 308 ==
LOC: IVU 13:32
PROVIDERS: Internal Medicine; Registered Nurse; ADMITTING PHYSICIAN Internal Medicine; ATTENDING PHYSICIAN Internal Medicine; CONSULT PHYSICIAN Internal Medicine Cardiovascular Disease; EMERGENCY PHYSICIAN Emergency Medicine; FAMILY PHYSICIAN Student in an Organized Health Care Education/Training Program
PROC: 3E033RZ Introduction of Antiarrhythmic into Peripheral Vein, Percutaneous Approach (ICD-10-PCS; 2023-06-20)
DX: I48.0 Paroxysmal atrial fibrillation (principal); I50.33 Acute on chronic diastolic (congestive) heart failure; I5A Non-ischemic myocardial injury (non-traumatic); E87.1 Hypo-osmolality and hyponatremia; I11.0 Hypertensive heart disease with heart failure; I25.10 Atherosclerotic heart disease of native coronary artery without angina pectoris; J84.10 Pulmonary fibrosis, unspecified; I35.0 Nonrheumatic aortic (valve) stenosis; G47.33 Obstructive sleep apnea (adult) (pediatric); Z79.02 Long term (current) use of antithrombotics/antiplatelets; Z95.5 Presence of coronary angioplasty implant and graft
CPT/HCPCS: 71045; 80048; 80053; 80061; 81003; 81015; 82248; 82533; 83735; 83880; 84443; 84484; 85025; 85027; 93005; 94640; 97116; 97163; 97167; 97530; 97535; 99285

== ENCOUNTER 2023-09-14 20:16 | Inpatient (IN) | payer MEDICARE, OTHER, SELFPAY ==
[2023-09-14] VITALS (8 sets, daily range): BP systolic 112–155; BP diastolic 31–57; BMI 22.5; BMI 22.4
[2023-09-14 13:11] LABS: % Basophils 0.7 % (0-2); % Eosinophils 4.3 % (0-6); % Immature Granulocytes 0.1 % (0-0.5); % Lymphocytes 23.5 % (20.5-51.1); % Monocytes 10.5 % (1.7-9.3); % Neutrophils 60.9 % (42.2-75.2); Absolute Basophils 0.1 10^3/uL (0-0.2); Absolute Eosinophils 0.3 10^3/uL (0-0.7); Absolute Lymphocytes 1.6 10^3/uL (1.2-3.4); Absolute Monocytes 0.7 10^3/uL (0.1-0.6); Absolute Neutrophils 4.1 10^3/uL (1.4-6.5); Hematocrit 38.8 % (37.0-47.0); Hemoglobin 12.7 g/dL (12.0-16.0); Mean Corp Hgb Conc. 32.7 g/dL (33.0-37.0); Mean Corpuscular Hgb 31.8 pg (27.0-31.0); Mean Platelet Volume 11.4 fL (7.4-10.4); Nucleated Red Blood Cells % 0 %; Platelet Count 281 10^3/uL (130-400); Red Cell Dist. Width 13.9 % (11.5-14.5); White Blood Cell Count 6.7 10^3/uL (4.8-10.8)
[2023-09-14 13:33] LABS: NT-proBNP 787 pg/ml
--- NOTE | 2023-09-14 13:49 | ED.GENMED ---
History of Present Illness
General
Chief Complaint: Breathing Problem
Source: patient
Exam Limitations: none
Time Seen by Provider: 09/14/23 13:41
Nursing documentation reviewed up to this point in time: agreed with
History of Present Illness
History of Present Illness:
Patient is a 83-year-old female with past medical history of CAD anemia interstitial lung disease pulmonary fibrosis bronchiectasis reflux CHF chronic hyponatremia, A-fib presents to the ER for evaluation of shortness of breath. She has noticed
more shortness of breath since Monday and today while brushing her teeth she 'felt breathless.'
She denies any associated chest pain. She normally wears 2 L nasal cannula oxygen for her interstitial lung disease. She does have a history congestive heart failure and has been taking her Lasix 20 mg a day. She denies any lower extremity
swelling.
Past History
Past History
ED Past Medical History: Arrthythmia (Fibrillation), CAD, Fibromyalgia, GERD, HTN, Hypercholesterolemia, Psychiatric (Depression, Panic disorder) and Other (History of back pain, migraines, diverticulitis, irritable bowel, loss of urination control,
arthritis, osteoporosis, impaired vision, rosacea, shingles, cataracts, Hiatel hernia)
ED Past Surgical History: Appendectomy (Questionable as patient unsure), Cardiac (Recent coronary stent X5), Gynecological (D&C, hysterectomy), Tonsilectomy and Other (Hernia repair)
Social History
Tobacco: Non-smoker
Alcohol: None
Drug: None
Personal:
Living: alone
Employment: Retired
Family History
Family History: CAD
Review of Systems
Review of Systems
Allergies reviewed?: Yes
All Other Systems: ROS reviewed and negative except as documented in HPI and ROS
Constitutional: Reports no symptoms
Respiratory: Reports trouble breathing; Denies cough
Cardiac: Reports no symptoms
ABD/GI: Reports no symptoms
: Reports no symptoms
Musculoskeletal: Reports no symptoms
Skin: Reports no symptoms
Neurological: Reports no symptoms
Psychiatric: Reports no symptoms
Phy Exam
General Physical Exam
General Presentation: no apparent distress
General age: appears stated age
General Skin: warm and dry
General Habitus: normal
General Mental: alert
General Hydration: appears well hydrated
Cardiovascular Exam
Cardiovascular Exam: systolic murmur
Pulmonary Exam
Pulmonary Exam: other (slight crackles b/l bases )
Neurological Exam
Neurological Exam: alert and oriented x3
Musculoskeletal Exam
Musculoskeletal Exam: full ROM
Skin Exam
Skin Exam: normal color and warm/dry
Psychiatric Exam
Psychiatric Exam: normal mood/affect
Scores
Heart Failure Risk
Heart Failure Risk Score: Not Applicable
Course
Orders/Labs/Results
Orders:
Orders
09/14/23 12:54
EKG [Electrocardiogram (*1)] Urgent
Reason for Study: Shortness of Breath
EKG- Treatment ONCE
09/14/23 13:01
BNP [NT-proBNP] Urgent
CBC/With Diff [Complete Blood Count/With Diff] Urgent
09/14/23 13:34
Comprehensive Metabolic Panel Urgent
09/14/23 14:15
Urinalysis Reflex To Culture Urgent
Date Specimen was Collected: 09/14/23
Time Specimen was Collected: 14:14
09/14/23 14:40
Chest [CR Chest - 2 Views ] Urgent
Comment:
Reason For Exam: sob
09/14/23 17:22
EKG [Electrocardiogram (*1)] Urgent
Reason for Study: Chest Pain
EKG- Treatment ONCE
09/14/23 18:15
Albuterol Nebs [Ventolin Nebules] 2.5 mg INH R NOW STA
Abnormal Lab Results
09/14/23 09/14/23
13:01 13:34
RBC 4.00 L 10^6/uL
(4.20-5.40)
MCH 31.8 H pg
(27.0-31.0)
MCHC 32.7 L g/dL
(33.0-37.0)
MPV 11.4 H fL
(7.4-10.4)
Absolute Monos (auto) 0.7 H 10^3/uL
(0.1-0.6)
Monocytes % 10.5 H %
(1.7-9.3)
Carbon Dioxide 34 H mmol/L
(22-30)
BUN 28 H mg/dl
(7-17)
Calcium 10.3 H mg/dl
(8.4-10.2)
09/14/23 13:01
09/14/23 13:34
Vital Signs
Initial and Last Documented VS:
Initial Vital Signs
Pulse Resp BP Pulse Ox
72 25 151/50 100
09/14/23 12:56 09/14/23 12:56 09/14/23 12:56 09/14/23 12:56
Last Documented Vital Signs
Temp Pulse Resp BP Pulse Ox
98.2 F 59 15 140/47 98
09/14/23 16:44 09/14/23 16:32 09/14/23 16:32 09/14/23 16:31 09/14/23 16:32
MDM/Problems Addressed
Differential Diagnosis Includes:
not limited to:chf interstitial fibrosis
MDM/Problems Addressed:
Patient is an 83-year-old female with history of pulmonary fibrosis, A-fib CHF CAD hypertension hyperlipidemia presents to the ER for being short of breath. Patient reports more short of breath over the past several days but worse this morning.
She is on normally 2 L of oxygen. She denies any recent fever or chills. She is afebrile. She does have a history of CHF but denies any lower extremity swelling. She presents awake alert in no acute distress at rest. Patient is afebrile with a
normal white count stable hemoglobin normal creatinine minimally elevated BUN.
Chest x-ray does show findings consistent with interstitial pneumonitis interstitial fibrosis. Patient with low BNP. Likely exacerbation of pulmonary interstitial fibrosis. Patient has had pulse ox around 85% on 2 L and with ambulation even on
oxygen becomes very dyspneic. Will adm for further eval.
*Radiology
Radiology exam reviewed: radiology read reviewed
*Pulse Oximetry
Patient hypoxic: yes
*EKG
Interpreted by ED Provider?: Yes
Interpretation: abnormal
Heart Rate: 54
Rate: bradycardiac
Ischemia: non-specific ST changes
*Critical Care Note
Total Time (30-74mins, 75-104mins- exclusive of procedures): Not Applicable
ED Attending Note
-
Portions of this chart may have been created with voice recognition software.� Occasional wrong word or��sound alike� substitutions may have occurred due to the inherent limitations of voice recognition software.
Discharge Plan
Departure
Patient Disposition: Admit
Date of Disposition: 09/14/23
Time of Disposition: 18:21
Admit to: Med/Surg
Admit to doctor: hospitalist
Presentation/result/management discussed w/ accepting MD/DO: Hospitalist
Patient with high blood pressure during this ER visit?: Yes
Condition: Fair
Covid-19: Not Applicable
Discharge Problem:
Acute dyspnea
Prescriptions:
No Action
dofetilide 125 mcg Capsule
125 mcg PO Q12H Qty: 60 0RF
furosemide 20 mg Tablet
20 mg PO DAILY Qty: 30 0RF
Eliquis 2.5 mg Tablet
2.5 mg PO BID Qty: 60 0RF
cholecalciferol (vitamin D3) 50 mcg (2,000 unit) Tablet
50 mcg PO DAILY Qty: 30 0RF
clopidogrel 75 mg Tablet
75 mg PO DAILY Qty: 30 0RF
ferrous sulfate [FeroSul] 325 mg (65 mg iron) Tablet
325 mg PO DAILY Qty: 30 0RF
metoprolol succinate 25 mg Tablet Extended Release 24 Hr
25 mg PO DAILY Qty: 30 0RF
potassium chloride 20 mEq Tablet,Er Particles/Crystals
20 meq PO DAILY Qty: 30 0RF
pantoprazole 40 mg Tablet,Delayed Release (Dr/Ec)
40 mg PO DAILY Qty: 30 0RF
sodium chloride 1,000 mg Tablet,Soluble
1,000 mg PO DAILY Qty: 30 0RF
ascorbic acid (vitamin C) [Vitamin C] 500 mg Tablet
500 mg PO DAILY Qty: 30 0RF
sennosides [Vegetable Laxative] 8.6 mg Tablet
8.6 mg PO Q48H@2200
acetaminophen 500 mg Tablet
500 mg PO Q6HPRN PRN (Reason: mild pain/fever)
midodrine 5 mg tablet
5 mg PO Q8HPRN PRN (Reason: BP < 120)
nitroglycerin 0.4 mg tablet, sublingual
0.4 mg sublingual [id number] PRN (Reason: chest pain)
calcium carbonate-vitamin D3 [Oyster Shell Calcium-Vit D3] 500 mg-5 mcg (200 unit) tablet
1 tab PO DAILY
Referrals:
Nelda Pacheco DO [Family Provider] -
Interventions
Interventions:
*Risk Screen - Suicide Last Done: 09/14/23 12:56
*General Assessment Last Done: 09/14/23 12:56
*Neglect/Abuse Screening Last Done: 09/14/23 12:56
ED- Fall Risk Assessment Last Done: 09/14/23 13:05
ED- Cardiac Assessment Last Done: 09/14/23 13:05
ED- Pulmonary Assessment Last Done: 09/14/23 13:05
Discharge Date and Time
Print Language: DIVEHI
[2023-09-14 14:10] LABS: ALT (SGPT) 12 U/L (0-35); AST (SGOT) 23 U/L (14-36); Alkaline Phosphatase 108 U/L (38-126); Blood Urea Nitrogen 28 mg/dl (7-17); Calcium 10.3 mg/dl (8.4-10.2); Carbon Dioxide 34 mmol/L (22-30); Chloride 101 mmol/L (98-107); Estimated Creatinine Clearance 34 ml/min; Glucose 84 mg/dl (70-99); Potassium 4.1 mmol/L (3.5-5.1); Sodium 141 mmol/L (135-145); Total Bilirubin 0.7 mg/dl (0.2-1.3); Total Protein 7.4 g/dl (6.3-8.2); eGFR > 60.00
[2023-09-14 14:31] LABS: Urine Albumin Negative (Neg - Trace); Urine Bilirubin Negative (Negative); Urine Character Clear (Clear); Urine Color Yellow; Urine Glucose Negative (Negative); Urine Ketone Negative (Negative); Urine Leukocyte Negative (Negative); Urine Nitrite Negative (Negative); Urine Occult Blood Negative (Negative); Urine Urobilinogen Negative (Neg - 1+)
[2023-09-14] MEDS: VENTOLIN NEBULES 2.5 MG INH ×2 (18:18→20:44)
--- NOTE | 2023-09-14 18:53 | HPS.HSE ---
Family Physician
-
Family Physician: Nelda Pacheco
Chief Complaint
-
Shortness of breath
History of Present Illness
82-year-old female with history of interstitial lung disease pulmonary fibrosis and bronchiectasis came to the hospital with shortness of breath. She has been more short of breath since the beginning of the week even brushing her teeth makes her
short of breath. She normally uses 2 L of oxygen. She normally uses a wheelchair or walker. She has been using 3 L of oxygen because of this. No fever, occasional cough. No sputum
Medical History
Past Medical History
Past Medical History: Reports Other
Additional Past Medical History:
Chronic back pain, cluster headaches, sleep apnea on CPAP, atherosclerosis, atrial fibrillation, HFpEF, coronary disease, chronic hypotension, hyperlipidemia, interstitial lung disease, stress incontinence, left renal cyst, arthritis, fibromyalgia,
rosacea, depression, panic disorder, vitamin D deficiency, GERD, vascular ectasia of duodenum, anemia
Past Surgical History: Reports Other
Additional Past Surgical History:
Cataract surgery, hysterectomy, hernia repair, cardiac catheterization, tonsillectomy, history D&C, cardioversion, cholecystectomy
Social History
Tobacco: Non-smoker
Alcohol: None
Drug: None
Living: With Family
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
Family History
Family History: Other (Father-coronary disease and diabetes. Mother-lung disease, 1 sister- breast cancer, second sister- COPD and breast cancer, brother- colon cancer lung cancer)
Allergies / Home Medications
Allergies reflects when Allergies were last updated in [employer].
Home Medications with original date entered in [employer]
Allergy/Medication List:
Allergies
Allergy/AdvReac Type Severity Reaction Status Date / Time
codeine [Codeine] Allergy Rash Verified 01/16/23 07:53
ethyl alcohol Allergy CHEMICAL Verified 01/16/23 07:53
SENSITIVITY
formaldehyde Allergy chemical Verified 01/16/23 07:53
sensitivity-
allergy
attack,
dry eyes,
wheezing
glycerin Allergy CHEMICAL Verified 01/16/23 07:53
SENSITIVITY
guaifenesin [From Mucinex] Allergy Hives Verified 01/16/23 07:53
Iodinated Contrast Media Allergy Rash/hives Verified 01/16/23 07:53
[Iodinated Contrast Media -
IV Dye]
morphine Allergy DECREASED Verified 01/16/23 07:53
HR
oxycodone HCl [From Percocet] Allergy Hives Verified 01/16/23 07:53
Sulfa (Sulfonamide Allergy throat Verified 01/16/23 07:53
Antibiotics) closes
muscle relaxers Allergy Hyper/tired Uncoded 01/16/23 07:53
seasonal Allergy nasal Uncoded 01/16/23 07:53
congestion/wheeze
Home Medications
apixaban 2.5 mg tablet (Eliquis) 2.5 mg PO BID Blood clot prevention/tx #60 tabs 06/23/23
ascorbic acid (vitamin C) 500 mg tablet (Vitamin C) 500 mg PO DAILY Supplement #30 tabs 06/23/23
cholecalciferol (vitamin D3) 50 mcg (2,000 unit) tablet 50 mcg PO DAILY Supplement #30 tabs 06/23/23
clopidogrel 75 mg tablet 75 mg PO DAILY Blood clot prevention/tx #30 tabs 06/23/23
dofetilide 125 mcg capsule 125 mcg PO Q12H Heart disease/condition #60 caps 06/23/23
ferrous sulfate 325 mg (65 mg iron) tablet (FeroSul) 325 mg PO DAILY Supplement #30 tabs 06/23/23
furosemide 20 mg tablet 20 mg PO DAILY Fluid retention/Swelling #30 tabs 06/23/23
metoprolol succinate 25 mg tablet,extended release 24 hr 25 mg PO DAILY Blood pressure #30 tabs 06/23/23
pantoprazole 40 mg tablet,delayed release 40 mg PO DAILY Gastrointestinal issue #30 tabs 06/23/23
potassium chloride 20 mEq tablet,extended release(part/cryst) 20 meq PO DAILY Supplement #30 tabs 06/23/23
sodium chloride 1,000 mg soluble tablet 1,000 mg PO DAILY Supplement #30 tabs 06/23/23
acetaminophen 500 mg tablet 500 mg PO Q6HPRN PRN mild pain/fever 09/14/23
calcium carbonate 500 mg-vitamin D3 5 mcg (200 unit) tablet (Oyster Shell Calcium-Vitamin D3) 1 tab PO DAILY Supplement 09/14/23
midodrine 5 mg tablet 5 mg PO Q8HPRN PRN BP < 120 09/14/23
nitroglycerin 0.4 mg sublingual tablet 0.4 mg sublingual [id number] PRN chest pain 09/14/23
sennosides 8.6 mg tablet (Vegetable Laxative) 8.6 mg PO Q48H@2200 09/14/23
Review of Systems
-
A 12 point ROS was completed and negative except as noted: Yes
Constitutional: Denies Fever
EENT: Denies Sore Throat
Respiratory: Reports Trouble Breathing; Denies Hemoptysis
Cardiac: Reports Other (Mild chest discomfort)
Abdomen/GI: Denies Abdominal Pain, Nausea, Vomiting or Diarrhea
Physical Exam
Vital Signs
Vital Signs
Temp Pulse Resp BP Pulse Ox
98.2 F 59 15 140/47 98
09/14/23 16:44 09/14/23 16:32 09/14/23 16:32 09/14/23 16:31 09/14/23 16:32
Physical Exam
General: Conversant
Respiratory: Rales (Bilateral rales)
Cardiac: S1/S2, Regular Rhythm and Murmur (apex and AA)
GI: Soft, Non Tender and Normal Bowel Sounds
Neuro: AO x 3 and Nonfocal/grossly intact
Laboratory Results
-
09/14/23 13:01
09/14/23 13:34
Laboratory Results
Total Bilirubin 0.7 mg/dl (0.2-1.3) 09/14/23 13:34
AST 23 U/L (14-36) 09/14/23 13:34
ALT 12 U/L (0-35) 09/14/23 13:34
Alkaline Phosphatase 108 U/L (38-126) 09/14/23 13:34
Data Reviewed
-
Diagnostic Radiology: Image Personally Visualized and interpreted (Interstitial changes in the lung)
Medical Tests (Nuc Med, Echo, EKG etc): Image Personally Visualized and interpreted (EKG-sinus bradycardia QTc 440)
Impression/Plan
-
IMPRESSION/PLAN:
# Acute hypoxic respiratory insufficiency on chronic respiratory failure
History of VDRF in the past-March 2023
Normally on 2 L of oxygen
Worsening interstitial changes on x-ray
Rule out infection-sputum culture
Hold off on AB
IV steroids
Speech evaluation to rule out aspiration
Pulmonary consultation
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
Amiodarone was discontinued February 2023 -she was on it for 3 months
# Chronic Bronchiectasis
# Chronic heart failure with preserved ejection fraction
Does not appear to be fluid overloaded
proBNP 787
Continue beta-sameer, Lasix 20 mg daily
Daily weights
# Coronary disease with multiple stents-to RCA OM 3 ,LAD
Continue Plavix, beta-sameer
Statin intolerant
# Paroxysmal atrial fibrillation
History of cardioversion May 2023
On Eliquis, dofetilide, metoprolol
# Moderate aortic stenosis/mild to moderate MR
# Chronic hypotension-continue midodrine as needed
# Hyperlipidemia-statin intolerant
# Sleep apnea-Has not used CPAP since Apr 2023 as she does not know how to supervisor [employer] oxygen to CPAP.
Advised to call the company for help.
# Diverticulosis
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
# Arthritis/polymyalgia
# Panic disorder/depression
# Cluster headaches
# Vitamin D deficiency-replace
# Lifelong non-smoker
# DVT prophylaxis-Eliquis
# CODE STATUS-Full CODE per pt wishes.
[2023-09-14] MEDS: SENOKOT PO (21:15)
[2023-09-14] MEDS: COLACE PO (21:15)
[2023-09-14] MEDS: DECADRON 4 MG IV (21:21)
[2023-09-14] MEDS: TIKOSYN 125 MCG PO (21:21)
[2023-09-14] MEDS: FLUSH (NSS) 2 FLUSH IV (21:21)
[2023-09-14] MEDS: ELIQUIS 2.5 MG PO (21:22)
[2023-09-14 21:36] LABS: Troponin I < 0.012 ng/ml
[2023-09-15] VITALS (7 sets, daily range): BP systolic 121–140; BP diastolic 50–84; PULSE 78; O2SAT 96; BMI 22.2
[2023-09-15 03:38] LABS: Hemoglobin 11.6 g/dL (12.0-16.0); Mean Corp Hgb Conc. 33.1 g/dL (33.0-37.0); Mean Corpuscular Volume 96.7 fL (81.0-99.0); Mean Platelet Volume 11.7 fL (7.4-10.4); Platelet Count 240 10^3/uL (130-400); Red Blood Cell Count 3.62 10^6/uL (4.20-5.40); Red Cell Dist. Width 13.7 % (11.5-14.5); White Blood Cell Count 5.8 10^3/uL (4.8-10.8)
[2023-09-15 04:00] LABS: Blood Urea Nitrogen 29 mg/dl (7-17); Calcium 10.7 mg/dl (8.4-10.2); Carbon Dioxide 30 mmol/L (22-30); Chloride 103 mmol/L (98-107); Estimated Creatinine Clearance 31 ml/min; Glucose 151 mg/dl (70-99); Potassium 4.5 mmol/L (3.5-5.1); Sodium 140 mmol/L (135-145); eGFR 55.21
[2023-09-15 04:21] LABS: Troponin I < 0.012 ng/ml
[2023-09-15] MEDS: DECADRON 4 MG IV ×3 (06:04→21:53)
[2023-09-15] MEDS: VENTOLIN NEBULES 2.5 MG INH ×4 (07:21→18:02)
[2023-09-15] MEDS: PROTONIX 40 MG PO (08:56)
[2023-09-15] MEDS: COLACE 100 MG PO (08:56)
[2023-09-15] MEDS: SODIUM CHLORIDE 1 GRAM PO (08:56)
[2023-09-15] MEDS: PLAVIX 75 MG PO (08:56)
[2023-09-15] MEDS: VITAMIN C 500 MG PO (08:56)
[2023-09-15] MEDS: TIKOSYN 125 MCG PO ×2 (08:56→19:53)
[2023-09-15] MEDS: SENOKOT 8.6 MG PO (08:57)
[2023-09-15] MEDS: VITAMIN D3 (cholecalciferol) 50 MCG PO (08:57)
[2023-09-15] MEDS: ELIQUIS 2.5 MG PO ×2 (08:57→19:52)
[2023-09-15] MEDS: FEOSOL 325 MG PO (08:57)
[2023-09-15] MEDS: OSCAL 500 + D 500 MG PO (08:57)
[2023-09-15] MEDS: TOPROL XL 25 MG PO (08:57)
[2023-09-15] MEDS: LASIX 20 MG PO (08:57)
--- NOTE | 2023-09-15 09:12 | W.PN.HOSP.TC ---
Today's Communication/Plan
-
IV steroids
F/U further pulmonary recs
check covid
Assessment / Plan
Assessment / Plan
IMPRESSION/PLAN:
# Acute hypoxic respiratory insufficiency on chronic respiratory failure
History of VDRF in the past-March 2023
Normally on 2 L of oxygen
Worsening interstitial changes on x-ray
Rule out infection-sputum culture
Hold off on AB
IV steroids - Decadron 4mg q 8 hours
Speech evaluation to rule out aspiration
Pulmonary consultation
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
Amiodarone was discontinued February 2023 -she was on it for 3 months
# Chronic Bronchiectasis
# Chronic heart failure with preserved ejection fraction
Does not appear to be fluid overloaded
proBNP 787
Continue beta-sameer, Lasix 20 mg daily
Daily weights
# Coronary disease with multiple stents-to RCA OM 3 ,LAD
Continue Plavix, beta-sameer
Statin intolerant
# Paroxysmal atrial fibrillation
History of cardioversion May 2023
On Eliquis, dofetilide, metoprolol
# Moderate aortic stenosis/mild to moderate MR
# Chronic hypotension-continue midodrine as needed
# Hyperlipidemia-statin intolerant
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
Advised to call the company for help.
# Diverticulosis
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
# Arthritis/polymyalgia
# Panic disorder/depression
# Cluster headaches
# Vitamin D deficiency-replace
# Lifelong non-smoker
# DVT prophylaxis-Eliquis
# CODE STATUS-Full CODE per pt wishes.
Anticipated Discharge: > 48 hours
Subjective/Interval History
-
Date of Service: September 15, 2023
continues to feel short of breath with minimal activity
frustrated because she was making such progress before this hospitalization
Objective Data
-
Labs:
Laboratory Results
09/15/23
03:21
WBC 5.8
Hgb 11.6 L
Hct 35.0 L
Plt Count 240
Sodium 140
Potassium 4.5
Chloride 103
Carbon Dioxide 30
BUN 29 H
Creatinine 1.0
Glucose 151 H
Calcium 10.7 H
Vital Signs:
Vital Signs
Temp Pulse Resp BP Pulse Ox
98.2 F 67 16 140/53 99
09/15/23 07:35 09/15/23 08:57 09/15/23 07:35 09/15/23 08:57 09/15/23 07:35
I&O
09/14/23 09/15/23 09/16/23
06:59 06:59 06:59
Intake Total 480 / 480
Balance 480 / 480
Review of Systems
-
History Source: Patient
All other systems: Reviewed and negative
Physical Exam
-
General: Well Developed, Well Nourished and No Apparent Distress
HEENT: Normocephalic, Atraumatic and Oxygen
Respiratory: Rales; Negative Wheezes or Rhonchi
Cardiac: Regular Rhythm, S1/S2 and Murmur
GI: Soft, Nontender, Nondistended and Normal Bowel Sounds
Musculoskeletal: No Clubbing, No Cyanosis and No Edema
Skin: Warm
Neuro: Awake and Alert
Psych: Calm
Data Reviewed
-
Diagnostic Radiology: Report Reviewed by me
[2023-09-15 09:48] LABS: Troponin I < 0.012 ng/ml
[2023-09-15 10:09] LABS: COVID-19 Antigen Negative (Negative)
--- NOTE | 2023-09-15 10:28 | CON.PUL ---
Consultation
Consultation Request
Date/Time Consultation Requested: 09/14/2023 - 2030
Date/Time Consultation Performed: 09/15/2023927
Requesting Provider: Dr. Jean
Performing Provider: Dr. Zhu
Reason for Consultation: Dyspnea
Medical History
-
Chief Complaint: SOB
History of Present Illness:
83-year-old female with a past medical history of ILD, carotid artery stenosis, CAD s/p stents, KILEY on auto CPAP, fibromyalgia, GERD, mixed hyperlipidemia, chronic respiratory failure on home oxygen at 2 L/min, chronic HFpEF and aortic stenosis who
presents from home with SOB. Initial vitals showed hypertension to 151/50, SpO2 100% on 2 L/min, respiratory rate 25, pulse rate 72 and she was afebrile to 98.2 �F. Labs showed proBNP of 787, urinalysis negative for UTI, and CXR showed increased
reticulonodular markings with no evidence of superimposed pneumonia or pulmonary edema. She was given an albuterol nebulizer and admitted to the hospitalist service. She denies fever, cough, sputum production. IV steroids were started, speech
evaluation was ordered to rule out aspiration, and pulmonary service now consulted for additional management/recommendations.
When I saw the patient she was sitting in chair next to bedside, on 2 L/min nasal cannula breathing comfortably. She says her shortness of breath began this past Monday and has progressed which is why she came here to the hospital. She says she
has been sleeping more upright over the last 2 days, and believes her belly may be more swollen. No lower extremity swelling reported. She has not coughing consistently although she does have postnasal drip. She has been compliant with her oxygen
at home. She has denied any recent sick contacts. She currently denies chest pain, headache, abdominal pain, nausea, fevers or chills. I called her daughter, Estuardo, and answered all of her questions.
Of note patient follows with us in the office with Dr. Adame -last visit on 09/06/2023. She follows for ILD/pulmonary fibrosis, eosinophilia, KILEY and bronchiectasis. PFTs were attempted however she was only able to tolerate spirometry, showing a
moderate restrictive lung defect with no evidence of obstruction. She is managed on DuoNebs twice daily with 2 L/min oxygen during the daytime with CPAP at night (auto-CPAP [id number]). Of note, she has a history of hyperglycemia when treated with
steroids for her ILD. Anti-fibrotic medications were discussed. She was also reminded to use Flonase + nasal saline irrigation for her postnasal drip. She is on PPI + Pepcid, and follows with Dr. Ibanez for heart failure. Her dry weight is
120 pounds. She was told to follow-up in 3 months with [facility].
PMHx: Mixed hyperlipidemia, GERD, overactive bladder, fibromyalgia, arthritis, sleep apnea on auto CPAP, CAD s/p PCI, carotid artery stenosis, history of chronic UTI, ILD/pulmonary fibrosis, chronic respiratory failure on home oxygen, A-fib on
Eliquis, CHF/chronic HFpEF, iron deficiency anemia, aortic stenosis
PSHx: Tonsillectomy, hiatal hernia repair, hysterectomy and bilateral SPO, coronary arterial stent, bilateral cataract surgery, cholecystectomy, cosmetic facial surgery
Past Medical History
Past Medical History: Other (Above as per HPI)
Past Surgical History: Other (Above as per HPI)
Social History
Tobacco: Non-smoker
Alcohol: None
Drug: None
Personal:
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
Family History
Family History: Cancer (Brother: Colon cancer), Diabetes (Father) and Other (Father: Hyperlipidemia)
Allergies / Home Medications
Allergies
Allergy/AdvReac Type Severity Reaction Status Date / Time
codeine [Codeine] Allergy Rash Verified 01/16/23 07:53
ethyl alcohol Allergy CHEMICAL Verified 01/16/23 07:53
SENSITIVITY
formaldehyde Allergy chemical Verified 01/16/23 07:53
sensitivity-
allergy
attack,
dry eyes,
wheezing
glycerin Allergy CHEMICAL Verified 01/16/23 07:53
SENSITIVITY
guaifenesin [From Mucinex] Allergy Hives Verified 01/16/23 07:53
Iodinated Contrast Media Allergy Rash/hives Verified 01/16/23 07:53
[Iodinated Contrast Media -
IV Dye]
morphine Allergy DECREASED Verified 01/16/23 07:53
HR
oxycodone HCl [From Percocet] Allergy Hives Verified 01/16/23 07:53
Sulfa (Sulfonamide Allergy throat Verified 01/16/23 07:53
Antibiotics) closes
muscle relaxers Allergy Hyper/tired Uncoded 01/16/23 07:53
seasonal Allergy nasal Uncoded 01/16/23 07:53
congestion/wheeze
Home Medications
�Medication �Instructions �Recorded �Confirmed �Last Taken �Type
apixaban 2.5 mg tablet (Eliquis) 2.5 mg PO BID Blood clot 06/23/23 09/14/23 09/14/23 Rx
prevention/tx #60 tabs
ascorbic acid (vitamin C) 500 mg 500 mg PO DAILY Supplement #30 tabs 06/23/23 09/14/23 09/14/23 Rx
tablet (Vitamin C)
cholecalciferol (vitamin D3) 50 50 mcg PO DAILY Supplement #30 tabs 06/23/23 09/14/23 09/14/23 Rx
mcg (2,000 unit) tablet
clopidogrel 75 mg tablet 75 mg PO DAILY Blood clot 06/23/23 09/14/23 09/14/23 Rx
prevention/tx #30 tabs
dofetilide 125 mcg capsule 125 mcg PO Q12H Heart 06/23/23 09/14/23 09/14/23 Rx
disease/condition #60 caps
ferrous sulfate 325 mg (65 mg 325 mg PO DAILY Supplement #30 tabs 06/23/23 09/14/23 09/14/23 Rx
iron) tablet (FeroSul)
furosemide 20 mg tablet 20 mg PO DAILY Fluid 06/23/23 09/14/23 09/14/23 Rx
retention/Swelling #30 tabs
metoprolol succinate 25 mg 25 mg PO DAILY Blood pressure #30 06/23/23 09/14/23 09/14/23 Rx
tablet,extended release 24 hr tabs
pantoprazole 40 mg tablet,delayed 40 mg PO DAILY Gastrointestinal 06/23/23 09/14/23 09/14/23 Rx
release issue #30 tabs
potassium chloride 20 mEq 20 meq PO DAILY Supplement #30 tabs 06/23/23 09/14/23 09/14/23 Rx
tablet,extended release(part/cryst)
sodium chloride 1,000 mg soluble 1,000 mg PO DAILY Supplement #30 06/23/23 09/14/23 09/14/23 Rx
tablet tabs
acetaminophen 500 mg tablet 500 mg PO Q6HPRN PRN mild 09/14/23 09/14/23 Unknown History
pain/fever
calcium carbonate 500 mg-vitamin 1 tab PO DAILY Supplement 09/14/23 09/14/23 09/14/23 History
D3 5 mcg (200 unit) tablet (Oyster
Shell Calcium-Vitamin D3)
midodrine 5 mg tablet 5 mg PO Q8HPRN PRN BP < 120 09/14/23 09/14/23 Unknown History
nitroglycerin 0.4 mg sublingual 0.4 mg sublingual [id number] PRN 09/14/23 09/14/23 Unknown History
tablet chest pain
sennosides 8.6 mg tablet 8.6 mg PO Q48H@2200 09/14/23 09/14/23 09/13/23 History
(Vegetable Laxative)
Review of Systems
-
History Source: Patient
All other systems: Negative unless noted
Vitals / Labs / Diagnostic Testing
Vital Signs
Temp Pulse Resp BP Pulse Ox
97.5 F 75 16 121/52 98
09/15/23 11:29 09/15/23 11:29 09/15/23 11:29 09/15/23 11:29 09/15/23 11:29
Lab Data
09/15/23 03:21
09/15/23 03:21
Diagnostic Testing:
Physical Exam
-
HEENT: Normocephalic and Anicteric
Cardiovascular: S1/S2, Murmur (+BRAD (best at RUSB)) and Peripheral Edema (negative)
Respiratory: Wheeze (negative), Rales (Bilaterally), Rhonchi (negative) and Non-Labored Respirations
GI: Soft, Non Distended, Non Tender and Normal Bowel Sounds
Neurology: Awake, Alert and Tremors (negative)
Skin: Warm and Dry
General: Respiratory Distress (negative), Comfortable, Fever (negative) and Chills (negative)
Assessment
-
Assessment: 83-year-old female with a past medical history of ILD, carotid artery stenosis, CAD s/p stents, KILEY on auto CPAP, fibromyalgia, GERD, mixed hyperlipidemia, chronic respiratory failure on home oxygen at 2 L/min, chronic HFpEF and aortic
stenosis who presents from home with SOB. Initial vitals showed hypertension to 151/50, SpO2 100% on 2 L/min, respiratory rate 25, pulse rate 72 and she was afebrile to 98.2 �F. Labs showed proBNP of 787, urinalysis negative for UTI, and CXR
showed increased reticulonodular markings with no evidence of superimposed pneumonia or pulmonary edema. She was given an albuterol nebulizer and admitted to the hospitalist service. She denies fever, cough, sputum production. IV steroids were
started, speech evaluation was ordered to rule out aspiration, and pulmonary service now consulted for additional management/recommendations.
Chronic conditions [employer] T[employer] WORK[employer]: Mixed hyperlipidemia, GERD, overactive bladder, fibromyalgia, arthritis, sleep apnea on auto CPAP, CAD s/p PCI, carotid artery stenosis, history of chronic UTI, ILD/pulmonary fibrosis, chronic respiratory failure on home
oxygen, A-fib on Eliquis, CHF/chronic HFpEF, iron deficiency anemia, aortic stenosis
Impression:
#Dyspnea likely due to acute ILD exacerbation vs acute decompensated heart failure
#ILD - mosaic attenuation with reticular opacities, traction bronchiectasis and ground glass opacities - not UIP pattern; looks more like NSIP; there was some concern previously with amiodarone induced pneumonitis, however she was only on it for 3
months and it was stopped in 02/2023; in CT chest from 12/2021 there was only patchy GGO with reticular opacities and it was not nearly as widespread as her ILD changes are currently; after review of her may need chest imaging with CXR + CT chest,
and A/P studies, seems as if her interstitial changes started to worsen sometime between March 2022 and July 2022; back in 2019 she had subpleural nodular opacities and reticular opacities with mosaic attenuation
#Chronic anemia
#Restrictive lung disease � last spirometry from 09/06/2023 showed a FVC of 1.08 L / 57% predicted
#Valvular heart disease moderate aortic stenosis + mild�moderate MR
#Chronic hypotension on midodrine
#KILEY on auto CPAP
#Paroxysmal A-fib on Eliquis
#Chronic HFpEF
#CAD with multiple PCI
Plan:
- Continue with IV steroids and wean as tolerated � currently on Decadron 4 mg IV q8hr (of note she was not taking prednisone chronically as of late, although she did previously as recent as Apr 2023)
- She has a history of hyperglycemia with systemic steroids symptoms; so maintain euglycemia with goal BG >100 and <180
- If her symptoms do not improve over the next 24-36 hours, would start trial of diuresis
- Maintain SpO2 >90-94% with supplemental O2 as needed
- Incentive spirometer encouraged
- If her respiratory symptoms do not improve with exertion mainly, or if she becomes more hypoxic, then would recommend bronchoscopy with BAL +/- transbronchial biopsy (unfortunately she is on plavix so TBBX cannot happen unless we hold plavix for 5
days)
- She does have a very loud murmur in the RUSB with known valvular heart disease and stage II diastolic dysfunction; recommend repeating echo at this time, especially as she has been sleeping with a higher angle and has noticed abdominal swelling
- Cardiac diet in the interim with fluid and sodium restriction
- Hold off on Abx, as patient is nontoxic-appearing, afebrile and no leukocytosis on blood work
- Replete electrolytes with K>4, Mg>2
- CPAP with sleep is recommended
- prn nebulized bronchodilators
- DVT ppx: Eliquis
Pulmonary service will continue to follow along. We will arrange for outpatient follow-up upon discharge with Dr. Adame.
Total time spent today was 55 minutes for this encounter. Time includes reviewing laboratory test/imaging results, reviewing pertinent medical records, obtaining and reviewing medical history, performing an appropriate exam, ordering medications,
tests and procedures. Time also includes documentation of this encounter, coordinating patient care and communicating with other healthcare professionals. Total time does not include separately billed tests performed on this date of service.
Data:
CXR 09-14-2023:
Peripheral increased reticulonodular markings, with pattern most compatible with interstitial fibrosis, usual interstitial pneumonitis pattern.
No radiographic evidence for superimposed pneumonia or pulmonary edema.
Progression of changes of interstitial fibrosis when compared to chest radiograph of January 16, 2023.
Outpatient [facility] data:
RADIOGRAPHIC STUDIES:
�������CT chest 08/14/19-moderate interstitial fibrosis with some bronchiectasis and 1 new nodule, other nodule stable compared to 2011-likely will need ILD. Serology, repeat CT chest in 6 months in follow-up of pulmonary nodules 3 mm-RUL, 5 mm RLL,
4 mm RLL and 3 mm LLL
�������CT sinuses 09/18/20-No evidence for acute sinusitis or chronic paranasal sinus mucosal disease. .
�������CT chest 12/21/21-pulmonary nodules are stable over 2 year interval consistent with benign etiology, bilateral peripheral prominent reticular markings are increased from prior study. These are compatible with possible interstitial lung
disease-patient notified-told to keep apoinntment 12/28/21.
CARDIAC STUDIES:
������ Echocardiogram 02/22/19-EF 60-65%, mild mitral regurgitation, mild aortic stenosis, when compared to 08/2012 mild aortic stenosis is now present.
�������Cardiac catheterization 07/06/20-EF 68%, single vessel LAD disease, previously placed stents are widely patent, successful stenting distal LAD and successful stenting mid LAD.
PFT:
������ Spirometry 11/23/16-normal.
�������PFT 08/24/19-FEV1 1.49 L-87%, FVC 1.82 L-78%, TLC 71%, RV 71%, DLCO 53%.
�������PFT 03/30/20--FEV1 1.43 L-89%, FVC 1.74 L-80%, TLC 72%, RV 68%, DLCO 61%. Mild restriction and moderate reduction in diffusing capacity..
�������PFT 10/05/20-FEV1 1.54 L-97%, FFVC 1.84 L-86%, DLCO 55%. Mild restriction and moderate reduction in diffusing capacity.
�������PFT 06/28/21-FEV1 1.63 L-105%, FVC 2.03 L-96%, TLC 70%, RV 58, DLCO 59%. Mild restriction and moderate reduction in diffusing capacity.
�������Spirometry 12/28/21-FEV1 1.45 L-93%, FVC 1.8 L-85%, no significant BD response. Mild restriction.
POLYSOMNOGRAM:
������ Older PSG-AHI-8, desaturation qasim 91%, CPAP 13 cm ideal-reduced to 9 cm for intolerance-aerophagia.
�������PSG 01/14/19-AHI-1.7, REM-AHI 11.4, desaturation qasim 85%, sleep efficiency 76%, PLM index 28.5.
6 MWT:
������ 6 minute walk test 08/28/19-ambulated 540 feet with desaturation qasim 94% maximum heart rate 88.
�������6 minute walk test 03/30/20-Ambulated 900 feet with desaturation qasim of 97%. The maximum heart rate of 87. No supplemental oxygen required.
�������6 minute walk test 10/05/20-Ambulated 1050 feet with desaturation qasim of 97% of maximum heart rate of 87. No supplemental oxygen required.
�������6 minute walk test 06/28/21-Ambulated 900 feet, desaturation qasim 97% of maximum heart rate of 85. Maximum dyspnea scale score was 2.0. No supplemental oxygen needed.
LABS:
������ Eosinophils 05/03/19-700
�������Aspergillus antibody 08/30/19-none detected
�������IgE 08/30/19--73 ILD serology 08/30/19-normal
�������ALETHA 08/30/19-23
�������Alpha-1 antitrypsin level and phenotype 08/30/19--129, PiMM
�������Hypersensitivity pneumonitis screen 08/30/19-none detected
�������ILD serology 08/30/19-normal
�������IgG subsets 08/30/19-normal.
--- NOTE | 2023-09-15 11:04 | PTOTSP ---
Speech Language Pathology
Clinical Swallow Evaluation
83F admitted for hypoxia and ILD with SOB p/w clinical s/s of at least a mild oropharyngeal dysphagia characterized by slow oral processing and intermittent s/s of aspiration/penetration with thin liquids and regular solids. Aspiration risk is
increased 2/2 known difficulty w/ swallow-respiration coordination. Aspiration risk is also increased 2/2 multiple comorbidities including, but not limited to, ILD, KILEY, and GERD.
Recommendations:
1. Regular solids, thin liquids
2. Meds whole in puree
3. Aspiration precautions
4. Swallow strategies - chew well, slow rate, single sips, breath-hold swallow
5. MILL ORDER SCHEDULER service to follow up, assess diet level tolerance, and provide dysphagia tx as needed.
--- NOTE | 2023-09-15 15:47 | CM ---
Reviewed the chart notes and spoke with the patient at the bedside. The patient resides with her daughter in a split level home with one step to enter. The patient has a rolling walker, wheelchair, hospital bed, nebulizer, and home O2 through
[facility]. The patient has had [facility] in the past and been to [facility]. The patient confirmed her pharmacy of choice is the [facility]. CM continues to be available to patient/family and is monitoring medical plan for needs at
discharge.
Plan: Discharge plans will depend on the patient's progress.
[2023-09-15] MEDS: COLACE PO (19:51)
[2023-09-15] MEDS: SENOKOT PO (19:52)
[2023-09-15] MEDS: FLUSH (NSS) 2 FLUSH IV (21:54)
[2023-09-16 03:23] VITALS: BP 137/58
[2023-09-16] MEDS: DECADRON 4 MG IV ×3 (05:56→19:51)
[2023-09-16] MEDS: FLUSH (NSS) 2 FLUSH IV ×2 (05:57→19:52)
[2023-09-16 06:00] VITALS: BMI 22.6
[2023-09-16 07:30] VITALS: BP 125/52
[2023-09-16] MEDS: VENTOLIN NEBULES 2.5 MG INH ×4 (07:49→19:29)
--- NOTE | 2023-09-16 08:57 | W.PN.HOSP.TC ---
Today's Communication/Plan
-
IV steroids
appreciate Pulmonary
Assessment / Plan
Assessment / Plan
IMPRESSION/PLAN:
# Acute hypoxic respiratory insufficiency on chronic respiratory failure
History of VDRF in the past-March 2023
Normally on 2 L of oxygen
Worsening interstitial changes on x-ray, no e/o pneumonia; clinically no e/o pneumonia, holding off on antibiotics
IV steroids - Decadron 4mg q 8 hours
Pulmonary consult appreciated
patient's weights ( at home) has remained stable, went down. cannot appreciate JVD.
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
Amiodarone was discontinued February 2023 -she was on it for 3 months
# Chronic Bronchiectasis
# Chronic heart failure with preserved ejection fraction
Continue beta-sameer, Lasix 20 mg daily
Daily weights
# Coronary disease with multiple stents-to RCA OM 3 ,LAD
Continue Plavix, beta-sameer
Statin intolerant
# Paroxysmal atrial fibrillation
History of cardioversion May 2023
On Eliquis, dofetilide, metoprolol
# Moderate aortic stenosis/mild to moderate MR
# Chronic hypotension-continue midodrine as needed
# Hyperlipidemia-statin intolerant
# Sleep apnea-Has not used CPAP since Apr 2023 as she does not know how to supervisor [employer] oxygen to CPAP.
Advised to call the company for help.
# Diverticulosis
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
# Arthritis/polymyalgia
# Panic disorder/depression
# Cluster headaches
# Vitamin D deficiency-replace
# Lifelong non-smoker
# DVT prophylaxis-Eliquis
# CODE STATUS-Full CODE per pt wishes.
Anticipated Discharge: > 48 hours
Subjective/Interval History
-
Date of Service: September 16, 2023
reports her exercise tolerance is better
Objective Data
-
Vital Signs:
Vital Signs
Temp Pulse Resp BP Pulse Ox
98.4 F 66 16 125/52 99
09/16/23 07:30 09/16/23 07:52 09/16/23 07:52 09/16/23 07:30 09/16/23 07:52
I&O
09/15/23 09/16/23 09/17/23
06:59 06:59 06:59
Intake Total 480 / 480 1440 / 1440
Balance 480 / 480 1440 / 1440
Review of Systems
-
History Source: Patient
All other systems: Reviewed and negative
Physical Exam
-
General: Well Developed, Well Nourished and No Apparent Distress
HEENT: Normocephalic, Atraumatic and Oxygen
Respiratory: Rales; Negative Wheezes or Rhonchi
Cardiac: Regular Rhythm, S1/S2 and Murmur
GI: Soft, Nontender, Nondistended and Normal Bowel Sounds
Musculoskeletal: No Clubbing, No Cyanosis and No Edema
Skin: Warm
Neuro: Awake and Alert
Psych: Calm
Data Reviewed
-
Diagnostic Radiology: Report Reviewed by me
Labs: Labs Reviewed by me
[2023-09-16 09:42] LABS: Glucose - Point of Care 141 mg/dl (70-99)
[2023-09-16] MEDS: COLACE PO (09:59)
[2023-09-16] MEDS: PROTONIX 40 MG PO (09:59)
[2023-09-16] MEDS: TIKOSYN 125 MCG PO ×2 (10:00→19:50)
[2023-09-16] MEDS: FEOSOL 325 MG PO (10:00)
[2023-09-16] MEDS: VITAMIN C 500 MG PO (10:00)
[2023-09-16] MEDS: SODIUM CHLORIDE 1 GRAM PO (10:00)
[2023-09-16] MEDS: OSCAL 500 + D 500 MG PO (10:00)
[2023-09-16] MEDS: PLAVIX 75 MG PO (10:00)
[2023-09-16] MEDS: COLACE 100 MG PO (10:01)
[2023-09-16] MEDS: VITAMIN D3 (cholecalciferol) 50 MCG PO (10:01)
[2023-09-16] MEDS: TOPROL XL 25 MG PO (10:01)
[2023-09-16] MEDS: ELIQUIS 2.5 MG PO ×2 (10:01→19:51)
[2023-09-16] MEDS: SENOKOT 8.6 MG PO (10:01)
[2023-09-16] MEDS: LASIX 20 MG PO (10:01)
[2023-09-16 11:00] VITALS: BP 138/56
--- NOTE | 2023-09-16 13:07 | W.PN.PUL3 ---
Today's Communication / Plan
-
Doing well today, remains on O2/weaning down
IV steroids can be weaned to q12 with plan for transition to PO tomorrow if improving
Encouraged OOB/ambulation
Continue diuresis per team
Assessment
-
83-year-old female with a past medical history of ILD, carotid artery stenosis, CAD s/p stents, KILEY on auto CPAP, fibromyalgia, GERD, mixed hyperlipidemia, chronic respiratory failure on home oxygen at 2 L/min, chronic HFpEF and aortic stenosis who
presents from home with SOB. Initial vitals showed hypertension to 151/50, SpO2 100% on 2 L/min, respiratory rate 25, pulse rate 72 and she was afebrile to 98.2 �F. Labs showed proBNP of 787, urinalysis negative for UTI, and CXR showed increased
reticulonodular markings with no evidence of superimposed pneumonia or pulmonary edema. She was given an albuterol nebulizer and admitted to the hospitalist service. She denies fever, cough, sputum production. IV steroids were started, speech
evaluation was ordered to rule out aspiration, and pulmonary service now consulted for additional management/recommendations.
Chronic conditions [employer]: Mixed hyperlipidemia, GERD, overactive bladder, fibromyalgia, arthritis, sleep apnea on auto CPAP, CAD s/p PCI, carotid artery stenosis, history of chronic UTI, ILD/pulmonary fibrosis, chronic respiratory failure on home
oxygen, A-fib on Eliquis, CHF/chronic HFpEF, iron deficiency anemia, aortic stenosis
Impression:
#Dyspnea likely due to acute ILD exacerbation vs acute decompensated heart failure
#ILD - mosaic attenuation with reticular opacities, traction bronchiectasis and ground glass opacities - not UIP pattern; looks more like NSIP; there was some concern previously with amiodarone induced pneumonitis, however she was only on it for 3
months and it was stopped in 02/2023; in CT chest from 12/2021 there was only patchy GGO with reticular opacities and it was not nearly as widespread as her ILD changes are currently; after review of her may need chest imaging with CXR + CT chest,
and A/P studies, seems as if her interstitial changes started to worsen sometime between March 2022 and July 2022; back in 2019 she had subpleural nodular opacities and reticular opacities with mosaic attenuation
#Chronic anemia
#Restrictive lung disease � last spirometry from 09/06/2023 showed a FVC of 1.08 L / 57% predicted
#Valvular heart disease moderate aortic stenosis + mild�moderate MR
#Chronic hypotension on midodrine
#KILEY on auto CPAP
#Paroxysmal A-fib on Eliquis
#Chronic HFpEF
#CAD with multiple PCI
Plan:
Continue with IV steroids and wean as tolerated � currently on Decadron 4 mg IV q8hr
I will wean to q12 today
Can likely transition to prednisone tomorrow if improving
- Maintain SpO2 >90-94% with supplemental O2 as needed
- Incentive spirometer encouraged
She does have a very loud murmur in the RUSB with known valvular heart disease and stage II diastolic dysfunction
Recommend repeating echo at this time, especially as she has been sleeping with a higher angle and has noticed abdominal swelling
Study pending
Cardiac diet in the interim with fluid and sodium restriction
Daily weights
Resumed on home lasix dose
Hold off on Abx, as patient is nontoxic-appearing, afebrile and no leukocytosis on blood work
- Replete electrolytes with K>4, Mg>2
- CPAP with sleep is recommended
- prn nebulized bronchodilators
- DVT ppx: Eliquis
Pulmonary service will continue to follow along. We will arrange for outpatient follow-up upon discharge with Dr. Adame.
Data:
CXR 09-14-2023:
Peripheral increased reticulonodular markings, with pattern most compatible with interstitial fibrosis, usual interstitial pneumonitis pattern.
No radiographic evidence for superimposed pneumonia or pulmonary edema.
Progression of changes of interstitial fibrosis when compared to chest radiograph of January 16, 2023.
Outpatient [facility] data:
RADIOGRAPHIC STUDIES:
�������CT chest 08/14/19-moderate interstitial fibrosis with some bronchiectasis and 1 new nodule, other nodule stable compared to 2012-likely will need ILD. Serology, repeat CT chest in 6 months in follow-up of pulmonary nodules 3 mm-RUL, 5 mm RLL,
4 mm RLL and 3 mm LLL
�������CT sinuses 09/18/20-No evidence for acute sinusitis or chronic paranasal sinus mucosal disease. .
�������CT chest 12/21/21-pulmonary nodules are stable over 2 year interval consistent with benign etiology, bilateral peripheral prominent reticular markings are increased from prior study. These are compatible with possible interstitial lung
disease-patient notified-told to keep apoinntment 12/28/21.
CARDIAC STUDIES:
������ Echocardiogram 02/22/19-EF 60-65%, mild mitral regurgitation, mild aortic stenosis, when compared to 08/2012 mild aortic stenosis is now present.
�������Cardiac catheterization 07/06/20-EF 68%, single vessel LAD disease, previously placed stents are widely patent, successful stenting distal LAD and successful stenting mid LAD.
PFT:
������ Spirometry 11/23/16-normal.
�������PFT 08/24/19-FEV1 1.49 L-87%, FVC 1.82 L-78%, TLC 71%, RV 71%, DLCO 53%.
�������PFT 03/30/20--FEV1 1.43 L-89%, FVC 1.74 L-80%, TLC 72%, RV 68%, DLCO 61%. Mild restriction and moderate reduction in diffusing capacity..
�������PFT 10/05/20-FEV1 1.54 L-97%, FFVC 1.84 L-86%, DLCO 55%. Mild restriction and moderate reduction in diffusing capacity.
�������PFT 06/28/21-FEV1 1.63 L-105%, FVC 2.03 L-96%, TLC 70%, RV 58, DLCO 59%. Mild restriction and moderate reduction in diffusing capacity.
�������Spirometry 12/28/21-FEV1 1.45 L-93%, FVC 1.8 L-85%, no significant BD response. Mild restriction.
POLYSOMNOGRAM:
������ Older PSG-AHI-8, desaturation qasim 91%, CPAP 13 cm ideal-reduced to 9 cm for intolerance-aerophagia.
�������PSG 01/14/19-AHI-1.7, REM-AHI 11.4, desaturation qasim 85%, sleep efficiency 76%, PLM index 28.5.
6 MWT:
������ 6 minute walk test 08/28/19-ambulated 540 feet with desaturation qasim 94% maximum heart rate 88.
�������6 minute walk test 03/30/20-Ambulated 900 feet with desaturation qasim of 97%. The maximum heart rate of 87. No supplemental oxygen required.
�������6 minute walk test 10/05/20-Ambulated 1050 feet with desaturation qasim of 97% of maximum heart rate of 87. No supplemental oxygen required.
�������6 minute walk test 06/28/21-Ambulated 900 feet, desaturation qasim 97% of maximum heart rate of 85. Maximum dyspnea scale score was 2.0. No supplemental oxygen needed.
LABS:
������ Eosinophils 05/03/19-700
�������Aspergillus antibody 08/30/19-none detected
�������IgE 08/30/19--73 ILD serology 08/30/19-normal
�������ALETHA 08/30/19-23
�������Alpha-1 antitrypsin level and phenotype 08/30/19--129, PiMM
�������Hypersensitivity pneumonitis screen 08/30/19-none detected
�������ILD serology 08/30/19-normal
�������IgG subsets 08/30/19-normal.
Total time spent today was 51 minutes for this encounter. Time includes reviewing laboratory test/imaging results, reviewing pertinent medical records, obtaining and reviewing medical history, performing an appropriate exam, ordering medications,
tests and procedures. Time also includes documentation of this encounter, coordinating patient care and communicating with other healthcare professionals. Total time does not include separately billed tests performed on this date of service.
Subjective Data
-
Date of Service:
Date of Service: September 16, 2023
Chief Complaint: Pulmonary Follow Up
Subjective:
Doing well today, still SOB with exertion
O2 lowered to 1.5L, satting well
Objective Data
Data Reviewed
Vital Signs / I&O / Oxygen:
Vital Signs
Temp Pulse Resp BP Pulse Ox
97.8 F 60 16 138/56 100
09/16/23 11:00 09/16/23 13:00 09/16/23 13:00 09/16/23 11:00 09/16/23 13:00
Intake and Output
09/15/23 09/16/23 09/17/23
06:59 06:59 06:59
Intake Total 480 / 480 1440 / 1440
Balance 480 / 480 1440 / 1440
SaO2 100
Nasal Cannula flow liters per 1.5
minute
Physical Exam
General: Comfortable and Other (NAD)
HEENT: Normocephalic, Anicteric and Moist Mucous Membranes
Cardiovascular: S1-S2 and Regular Rhythm
Respiratory: Crackles and Non-Labored Respirations
GI: Soft, Non Distended and Non Tender
Neurology: Awake, Alert, Oriented, AO x 3 and No Motor Deficits
Skin: Warm, Dry and Good Color
Labs/Micro/Reports
Lab Data
09/15/23 03:21
09/15/23 03:21
[2023-09-16 15:30] VITALS: BP 131/47
--- NOTE | 2023-09-16 15:58 | CHAP ---
Long visit with Camille, who was in good spirits. She was especially eager to share stories today. Emotional and spiritual support provided.
--- NOTE | 2023-09-16 17:39 | PTCARENOTE ---
Pt oob to chair for meals this shift, remains on 1.5L NC, SOB on exertion, NSR on the telemetry
[2023-09-16 19:32] VITALS: BP 127/54
[2023-09-16] MEDS: SENOKOT PO (19:54)
--- NOTE | 2023-09-16 19:55 | PTCARENOTE ---
Patient refused [address]. She said she had a large BM today and doesn't want loose stools.
[2023-09-16 23:18] VITALS: BP 135/51
[2023-09-17 03:20] VITALS: BP 145/54
[2023-09-17 05:54] LABS: Blood Urea Nitrogen 43 mg/dl (7-17); Calcium 10.2 mg/dl (8.4-10.2); Carbon Dioxide 26 mmol/L (22-30); Chloride 103 mmol/L (98-107); Estimated Creatinine Clearance 31 ml/min; Glucose 147 mg/dl (70-99); Potassium 4.4 mmol/L (3.5-5.1); Sodium 138 mmol/L (135-145); eGFR 55.21
[2023-09-17 06:00] VITALS: BMI 23.1
[2023-09-17 07:22] VITALS: BP 118/62
--- NOTE | 2023-09-17 08:05 | W.PN.HOSP.TC ---
Today's Communication/Plan
-
see plan
Assessment / Plan
Assessment / Plan
IMPRESSION/PLAN:
# Acute hypoxic respiratory insufficiency on chronic respiratory failure
-History of VDRF in the past-March 2023
-Normally on 2 L of oxygen
patient's weights ( at home) has remained stable, went down. cannot appreciate JVD - clinically not suggestive of heart failure. patient is improving on steroids
-Worsening interstitial changes on x-ray, no e/o pneumonia; clinically no e/o pneumonia, holding off on antibiotics
-IV steroids - Decadron 4mg q 8 hours weaned to q 12 on 09/15 by pulm
-Pulmonary consult appreciated
-felt more short of breath overnight, will continue IV steroids and possibly change to oral taper and DC tomorrow
-HH On discharge
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
Amiodarone was discontinued February 2023 -she was on it for 3 months
# Chronic Bronchiectasis
# Chronic heart failure with preserved ejection fraction
Continue beta-sameer, Lasix 20 mg daily
Daily weights
# Coronary disease with multiple stents-to RCA OM 3 ,LAD
Continue Plavix, beta-sameer
Statin intolerant
# Paroxysmal atrial fibrillation
History of cardioversion May 2023
On Eliquis, dofetilide, metoprolol
# Moderate aortic stenosis/mild to moderate MR
# Chronic hypotension-continue midodrine as needed
# Hyperlipidemia-statin intolerant
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
Advised to call the company for help.
# Diverticulosis
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
# Arthritis/polymyalgia
# Panic disorder/depression
# Cluster headaches
# Vitamin D deficiency-replace
# Lifelong non-smoker
# DVT prophylaxis-Eliquis
# CODE STATUS-Full CODE per pt wishes.
Anticipated Discharge: 24 - 48 hours
Subjective/Interval History
-
Date of Service: September 17, 2023
overall feeling better than when came in but was short of breath last night after having a BM
she reports feeling not ready to go home today
Objective Data
-
Labs:
Laboratory Results
09/17/23
04:48
Sodium 138
Potassium 4.4
Chloride 103
Carbon Dioxide 26
BUN 43 H
Creatinine 1.0
Glucose 147 H
Calcium 10.2
Vital Signs:
Vital Signs
Temp Pulse Resp BP Pulse Ox
97.8 F 53 18 145/54 99
09/17/23 03:20 09/17/23 03:20 09/17/23 03:20 09/17/23 03:20 09/17/23 03:20
I&O
09/16/23 09/17/23 09/18/23
06:59 06:59 06:59
Intake Total 1440 / 1440 1900 / 1900
Balance 1440 / 1440 1900 / 1900
Review of Systems
-
History Source: Patient
All other systems: Reviewed and negative
Physical Exam
-
General: Well Developed, Well Nourished and No Apparent Distress
HEENT: Normocephalic, Atraumatic and Oxygen
Respiratory: Rales; Negative Wheezes or Rhonchi
Cardiac: Regular Rhythm, S1/S2 and Murmur
GI: Soft, Nontender, Nondistended and Normal Bowel Sounds
Musculoskeletal: No Clubbing, No Cyanosis and No Edema
Skin: Warm
Neuro: Awake and Alert
Psych: Calm
Data Reviewed
-
Diagnostic Radiology: Report Reviewed by me
Labs: Labs Reviewed by me
[2023-09-17] MEDS: VENTOLIN NEBULES 2.5 MG INH ×4 (08:28→19:29)
[2023-09-17] MEDS: COLACE PO ×2 (09:16→20:29)
[2023-09-17] MEDS: OSCAL 500 + D 500 MG PO (09:17)
[2023-09-17] MEDS: ELIQUIS 2.5 MG PO ×2 (09:17→21:10)
[2023-09-17] MEDS: FEOSOL 325 MG PO (09:17)
[2023-09-17] MEDS: PLAVIX 75 MG PO (09:17)
[2023-09-17] MEDS: TOPROL XL 25 MG PO (09:17)
[2023-09-17] MEDS: LASIX 20 MG PO (09:17)
[2023-09-17] MEDS: VITAMIN C 500 MG PO (09:17)
[2023-09-17] MEDS: PROTONIX 40 MG PO (09:17)
[2023-09-17] MEDS: VITAMIN D3 (cholecalciferol) 50 MCG PO (09:17)
[2023-09-17] MEDS: SENOKOT 8.6 MG PO (09:17)
[2023-09-17] MEDS: TIKOSYN 125 MCG PO ×2 (09:17→21:11)
[2023-09-17] MEDS: DECADRON 4 MG IV (09:18)
[2023-09-17] MEDS: SODIUM CHLORIDE PO (09:18)
[2023-09-17] MEDS: SODIUM CHLORIDE 1 GRAM PO (09:59)
--- NOTE | 2023-09-17 11:01 | W.PN.PUL3 ---
Today's Communication / Plan
-
Doing well, can try to RA at rest
Transition IV steroids to prednisone taper
Encouraged OOB/PT
Discharge planning per team, hopefully in next 24 hours
Assessment
-
83-year-old female with a past medical history of ILD, carotid artery stenosis, CAD s/p stents, KILEY on auto CPAP, fibromyalgia, GERD, mixed hyperlipidemia, chronic respiratory failure on home oxygen at 2 L/min, chronic HFpEF and aortic stenosis who
presents from home with SOB. Initial vitals showed hypertension to 151/50, SpO2 100% on 2 L/min, respiratory rate 25, pulse rate 72 and she was afebrile to 98.2 �F. Labs showed proBNP of 787, urinalysis negative for UTI, and CXR showed increased
reticulonodular markings with no evidence of superimposed pneumonia or pulmonary edema. She was given an albuterol nebulizer and admitted to the hospitalist service. She denies fever, cough, sputum production. IV steroids were started, speech
evaluation was ordered to rule out aspiration, and pulmonary service now consulted for additional management/recommendations.
Chronic conditions [employer]: Mixed hyperlipidemia, GERD, overactive bladder, fibromyalgia, arthritis, sleep apnea on auto CPAP, CAD s/p PCI, carotid artery stenosis, history of chronic UTI, ILD/pulmonary fibrosis, chronic respiratory failure on home
oxygen, A-fib on Eliquis, CHF/chronic HFpEF, iron deficiency anemia, aortic stenosis
Impression:
#Dyspnea likely due to acute ILD exacerbation vs acute decompensated heart failure
#ILD - mosaic attenuation with reticular opacities, traction bronchiectasis and ground glass opacities - not UIP pattern; looks more like NSIP; there was some concern previously with amiodarone induced pneumonitis, however she was only on it for 3
months and it was stopped in 02/2023; in CT chest from 12/2021 there was only patchy GGO with reticular opacities and it was not nearly as widespread as her ILD changes are currently; after review of her may need chest imaging with CXR + CT chest,
and A/P studies, seems as if her interstitial changes started to worsen sometime between March 2022 and July 2022; back in 2019 she had subpleural nodular opacities and reticular opacities with mosaic attenuation
#Chronic anemia
#Restrictive lung disease � last spirometry from 09/06/2023 showed a FVC of 1.08 L / 57% predicted
#Valvular heart disease moderate aortic stenosis + mild�moderate MR
#Chronic hypotension on midodrine
#KILEY on auto CPAP
#Paroxysmal A-fib on Eliquis
#Chronic HFpEF
#CAD with multiple PCI
Plan:
Continue with IV steroids and wean as tolerated � currently on Decadron IV
Transition to PO taper today
Maintain SpO2 >90-94% with supplemental O2 as needed
Can likely wean to RA at rest
- Incentive spirometer encouraged
She does have a very loud murmur in the RUSB with known valvular heart disease and stage II diastolic dysfunction
Recommend repeating echo at this time, especially as she has been sleeping with a higher angle and has noticed abdominal swelling
Study pending
Cardiac diet in the interim with fluid and sodium restriction
Daily weights
Resumed on home lasix dose
Hold off on Abx, as patient is nontoxic-appearing, afebrile and no leukocytosis on blood work
- Replete electrolytes with K>4, Mg>2
- CPAP with sleep is recommended
- prn nebulized bronchodilators
- DVT ppx: Eliquis
Pulmonary service will continue to follow along. We will arrange for outpatient follow-up upon discharge with Dr. Adame.
Data:
CXR 09-14-2023: Peripheral increased reticulonodular markings, with pattern most compatible with interstitial fibrosis, usual interstitial pneumonitis pattern. No radiographic evidence for superimposed pneumonia or pulmonary edema. Progression of
changes of interstitial fibrosis when compared to chest radiograph of January 16, 2023.
Outpatient [facility] data:
RADIOGRAPHIC STUDIES:
�������CT chest 08/14/19-moderate interstitial fibrosis with some bronchiectasis and 1 new nodule, other nodule stable compared to 2012-likely will need ILD. Serology, repeat CT chest in 6 months in follow-up of pulmonary nodules 3 mm-RUL, 5 mm RLL,
4 mm RLL and 3 mm LLL
�������CT sinuses 09/18/20-No evidence for acute sinusitis or chronic paranasal sinus mucosal disease. .
�������CT chest 12/21/21-pulmonary nodules are stable over 2 year interval consistent with benign etiology, bilateral peripheral prominent reticular markings are increased from prior study. These are compatible with possible interstitial lung
disease-patient notified-told to keep apoinntment 12/28/21.
CARDIAC STUDIES:
������ Echocardiogram 02/22/19-EF 60-65%, mild mitral regurgitation, mild aortic stenosis, when compared to 08/2012 mild aortic stenosis is now present.
�������Cardiac catheterization 07/06/20-EF 68%, single vessel LAD disease, previously placed stents are widely patent, successful stenting distal LAD and successful stenting mid LAD.
PFT:
������ Spirometry 11/23/16-normal.
�������PFT 08/24/19-FEV1 1.49 L-87%, FVC 1.82 L-78%, TLC 71%, RV 71%, DLCO 53%.
�������PFT 03/30/20--FEV1 1.43 L-89%, FVC 1.74 L-80%, TLC 72%, RV 68%, DLCO 61%. Mild restriction and moderate reduction in diffusing capacity..
�������PFT 10/05/20-FEV1 1.54 L-97%, FFVC 1.84 L-86%, DLCO 55%. Mild restriction and moderate reduction in diffusing capacity.
�������PFT 06/28/21-FEV1 1.63 L-105%, FVC 2.03 L-96%, TLC 70%, RV 58, DLCO 59%. Mild restriction and moderate reduction in diffusing capacity.
�������Spirometry 12/28/21-FEV1 1.45 L-93%, FVC 1.8 L-85%, no significant BD response. Mild restriction.
POLYSOMNOGRAM:
������ Older PSG-AHI-8, desaturation qasim 91%, CPAP 13 cm ideal-reduced to 9 cm for intolerance-aerophagia.
�������PSG 01/14/19-AHI-1.7, REM-AHI 11.4, desaturation qasim 85%, sleep efficiency 76%, PLM index 28.5.
6 MWT:
������ 6 minute walk test 08/28/19-ambulated 540 feet with desaturation qasim 94% maximum heart rate 88.
�������6 minute walk test 03/30/20-Ambulated 900 feet with desaturation qasim of 97%. The maximum heart rate of 87. No supplemental oxygen required.
�������6 minute walk test 10/05/20-Ambulated 1050 feet with desaturation qasim of 97% of maximum heart rate of 87. No supplemental oxygen required.
�������6 minute walk test 06/28/21-Ambulated 900 feet, desaturation qasim 97% of maximum heart rate of 85. Maximum dyspnea scale score was 2.0. No supplemental oxygen needed.
LABS:
������ Eosinophils 05/03/19-700
�������Aspergillus antibody 08/30/19-none detected
�������IgE 08/30/19--73 ILD serology 08/30/19-normal
�������ALETHA 08/30/19-23
�������Alpha-1 antitrypsin level and phenotype 08/30/19--129, PiMM
�������Hypersensitivity pneumonitis screen 08/30/19-none detected
�������ILD serology 08/30/19-normal
�������IgG subsets 08/30/19-normal.
Total time spent today was 35 minutes for this encounter. Time includes reviewing laboratory test/imaging results, reviewing pertinent medical records, obtaining and reviewing medical history, performing an appropriate exam, ordering medications,
tests and procedures. Time also includes documentation of this encounter, coordinating patient care and communicating with other healthcare professionals. Total time does not include separately billed tests performed on this date of service.
Subjective Data
-
Date of Service:
Date of Service: September 17, 2023
Chief Complaint: Pulmonary Follow Up
Subjective:
no new events on
had diarrhea x 4 eps overnight
remains otherwise on same O2 amts
Objective Data
Data Reviewed
Vital Signs / I&O / Oxygen:
Vital Signs
Temp Pulse Resp BP Pulse Ox
97.8 F 59 16 145/54 98
09/17/23 07:22 09/17/23 08:25 09/17/23 08:25 09/17/23 09:17 09/17/23 10:45
Intake and Output
09/16/23 09/17/23 09/18/23
06:59 06:59 06:59
Intake Total 1440 / 1440 1900 / 1900
Balance 1440 / 1440 1900 / 1900
SaO2 98
Nasal Cannula flow liters per 1.5
minute
Physical Exam
General: Comfortable and Other (NAD)
HEENT: Normocephalic, Anicteric and Moist Mucous Membranes
Cardiovascular: S1-S2 and Regular Rhythm
Respiratory: Crackles and Non-Labored Respirations
GI: Soft, Non Distended and Non Tender
Neurology: Awake, Alert, Oriented, AO x 3 and No Motor Deficits
Skin: Warm, Dry and Good Color
Labs/Micro/Reports
Lab Data
09/15/23 03:21
09/17/23 04:48
[2023-09-17 11:04] VITALS: BP 162/52
--- NOTE | 2023-09-17 16:34 | PTCARENOTE ---
patient states unable to provide sputum sample because it makes her have to gag if she tries to spit.
[2023-09-17 16:39] VITALS: BP 135/46
[2023-09-17 19:32] VITALS: BP 140/50
[2023-09-17] MEDS: SENOKOT PO (20:29)
[2023-09-18] VITALS (7 sets, daily range): BP systolic 111–157; BP diastolic 52–61; PULSE 54; O2SAT 97; BMI 23.0
[2023-09-18] MEDS: VENTOLIN NEBULES 2.5 MG INH ×3 (08:03→15:56)
[2023-09-18] MEDS: PROTONIX 40 MG PO (09:10)
[2023-09-18] MEDS: COLACE PO ×2 (09:10→09:13)
[2023-09-18] MEDS: ELIQUIS 2.5 MG PO (09:10)
[2023-09-18] MEDS: TOPROL XL 25 MG PO (09:10)
[2023-09-18] MEDS: SODIUM CHLORIDE 1 GRAM PO (09:10)
[2023-09-18] MEDS: OSCAL 500 + D 500 MG PO (09:10)
[2023-09-18] MEDS: LASIX 20 MG PO ×2 (09:10→13:13)
[2023-09-18] MEDS: SENOKOT 8.6 MG PO (09:10)
[2023-09-18] MEDS: DELTASONE 40 MG PO (09:10)
[2023-09-18] MEDS: TIKOSYN 125 MCG PO (09:10)
[2023-09-18] MEDS: PLAVIX 75 MG PO (09:10)
[2023-09-18] MEDS: FEOSOL 325 MG PO (09:11)
[2023-09-18] MEDS: VITAMIN D3 (cholecalciferol) 50 MCG PO (09:11)
[2023-09-18] MEDS: VITAMIN C 500 MG PO (09:11)
--- NOTE | 2023-09-18 09:37 | W.PN.HOSP.TC ---
Addendum entered and electronically signed by Andie Jean MD 09/18/23 17:10:
Echo 09/18/2023-normal biventricular size and systolic function. EF 60 to 65%. Stage III diastolic dysfunction. Mild to moderate MR. Moderate AAS. Mild to moderate TR. Elevated pulmonary pressure.
Patient needs to be compliant with CPAP at home.
Outpatient follow-up with [facility] needed.
total discharge time 40 min
Addendum entered and electronically signed by Andie Jean MD 09/18/23 14:13:
I personally performed a history and physical exam of the patient and discussed management with the resident. I reviewed the resident's note and agree with the documented findings and plan of care HPI/CC.
CVS: S1-S2 normal
Chest: few rales bilateral
Abdomen: Soft, NT
Extremities: Trace edema
# Acute hypoxic respiratory insufficiency on chronic respiratory failure
-Acute ILD exacerbation
-History of VDRF in the past-March 2023
-Normally on 2 L of oxygen- Here on 1.5 L
patient's weights ( at home) has remained stable, went down. cannot appreciate JVD - clinically not suggestive of heart failure. Patient is improving on steroids .
-Worsening interstitial changes on x-ray, no e/o pneumonia; clinically no e/o pneumonia, holding off on antibiotics
-IV steroids changed to PO
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
Amiodarone was discontinued February 2023 -she was on it for 3 months
# Chronic Bronchiectasis
# Chronic heart failure with preserved ejection fraction
Continue beta-smaeer, Lasix 20 mg daily
Additional Lasix for fluid retention from Steroids
Daily weights
# Coronary disease with multiple stents-to RCA OM 3 ,LAD
Continue Plavix, beta-sameer
Statin intolerant
# Paroxysmal atrial fibrillation.History of cardioversion May 2023.On Eliquis, dofetilide, metoprolol
# Moderate aortic stenosis/mild to moderate MR
# Chronic hypotension-continue midodrine as needed
# Hyperlipidemia-statin intolerant
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
# Diverticulosis
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
# Arthritis/polymyalgia
# Panic disorder/depression
# Cluster headaches
# Vitamin D deficiency-replace
# Lifelong non-smoker
# DVT prophylaxis-Eliquis
# CODE STATUS-Full CODE per pt wishes.
Possible discharge today- Pending ECHO
Original Note:
Documented by User: Felipe Roy MD, Resident 09/18/23 13:59
Today's Communication/Plan
-
d/c home with home health on PO steroid taper dose
Assessment / Plan
Assessment / Plan
IMPRESSION/PLAN:
# Acute hypoxic respiratory insufficiency on chronic respiratory failure
- History of VDRF in the past-March 2023
- Normally on 2 L of oxygen. O2 sat 100% on 1.5 L
- patient's weights increased 2kg- order one time additional dose of lasix
- Reports significant improvement on steroids
-Worsening interstitial changes on x-ray, no e/o pneumonia; clinically no e/o pneumonia, holding off on antibiotics
-IV steroids switched to PO by pulmonology
-Pulmonary consult appreciated
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
-Amiodarone was discontinued February 2023 -she was on it for 3 months
# Chronic Bronchiectasis
# Chronic heart failure with preserved ejection fraction
- Continue beta-sameer, Lasix 20 mg daily
- One time additional dose today 09/18/23
- Daily weights
- Echo today 09/18/23
# Coronary disease with multiple stents-to RCA OM 3 ,LAD
- Continue Plavix, beta-sameer
- Statin intolerant
# Paroxysmal atrial fibrillation
History of cardioversion May 2023
On Eliquis, dofetilide, metoprolol
# Moderate aortic stenosis/mild to moderate MR
# Chronic hypotension-continue midodrine as needed
# Hyperlipidemia-statin intolerant
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
Advised to call the company for help.
# Diverticulosis
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
# Arthritis/polymyalgia
# Panic disorder/depression
# Cluster headaches
# Vitamin D deficiency-replace
# Lifelong non-smoker
# DVT prophylaxis-Eliquis
# CODE STATUS-Full CODE per pt wishes.
Anticipated Discharge: Today
Subjective/Interval History
-
Date of Service: September 18, 2023
Objective Data
-
Vital Signs:
Vital Signs
Temp Pulse Resp BP Pulse Ox
97.6 F 56 17 111/61 100
09/18/23 07:30 09/18/23 08:10 09/18/23 08:10 09/18/23 07:30 09/18/23 08:10
I&O
09/17/23 09/18/23 09/19/23
06:59 06:59 06:59
Intake Total 1899
Balance 1899
Review of Systems
-
History Source: Patient
Constitutional: Denies Fever
Respiratory: Denies Cough or Trouble Breathing
Cardiac: Denies Chest Pain
Abdomen/GI: Denies Abdominal Pain
Musculoskeletal: Denies Joint Pain
Neuro: Denies Headache
Physical Exam
-
General: Well Developed, Well Nourished and No Apparent Distress
HEENT: Normocephalic and Atraumatic
Respiratory: Rales
GI: Soft and Nontender
Skin: Warm and Dry
Psych: Calm
Data Reviewed
-
Labs: Labs Reviewed by me, Discussed with Physician and Discussed with Patient

Documented by User: Andie Jean MD 09/18/23 14:11
Assessment / Plan
Assessment / Plan
IMPRESSION/PLAN:
# Acute hypoxic respiratory insufficiency on chronic respiratory failure
- History of VDRF in the past-March 2023
- Normally on 2 L of oxygen. O2 sat 100% on 1.5 L
- patient's weights increased 2kg- order one time additional dose of lasix
- Reports significant improvement on steroids
-Worsening interstitial changes on x-ray, no e/o pneumonia; clinically no e/o pneumonia, holding off on antibiotics
-IV steroids switched to PO by pulmonology
-Pulmonary consult appreciated
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
-Amiodarone was discontinued February 2023 -she was on it for 3 months
# Chronic Bronchiectasis
# Chronic heart failure with preserved ejection fraction
- Continue beta-sameer, Lasix 20 mg daily
- One time additional dose today 09/18/23 for fluid retention from steroids
- Daily weights
- Echo today 09/18/23
# Coronary disease with multiple stents-to RCA OM 3 ,LAD
- Continue Plavix, beta-sameer
- Statin intolerant
# Paroxysmal atrial fibrillation
History of cardioversion May 2023
On Eliquis, dofetilide, metoprolol
# Moderate aortic stenosis/mild to moderate MR
# Chronic hypotension-continue midodrine as needed
# Hyperlipidemia-statin intolerant
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
Advised to call the company for help.
# Diverticulosis
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
# Arthritis/polymyalgia
# Panic disorder/depression
# Cluster headaches
# Vitamin D deficiency-replace
# Lifelong non-smoker
# DVT prophylaxis-Eliquis
# CODE STATUS-Full CODE per pt wishes.
--- NOTE | 2023-09-18 09:43 | W.DCSUMMARY ---
Documented by User: Felipe Roy MD, Resident 09/18/23 18:03
Discharge Summary
Discharge Data
Date of Admission: 09/14/23
Date of Discharge: 09/18/23
-
Pending Results: No
Hospital Course
Discharging Physician : Felipe Roy MD ; Andie Jean MD
Disposition : Home with VN
Primary care physician : Nelda Graf
Principal Discharge diagnosis : Acute hypoxic respiratory insufficiency on chronic respiratory failure
Chronic Discharge diagnosis : History of interstitial lung disease, chronic bronchiectasis, chronic heart failure, coronary disease with multiple stents, paroxysmal A-fib, moderate aortic stenosis, hyperlipidemia, sleep apnea, diverticulosis, GERD,
arthritis, panic disorder, cluster headache, vitamin D deficiency,
Hospital Course : 83-year-old female with history of interstitial lung disease, chronic respiratory close presented to the ED with shortness of breath, tachycardia. She uses 2 L nasal cannula oxygen at baseline. She was provided oxygen support and
at the time of discharge her oxygen saturation was 100% at 1.5 L. She was also given IV steroids initially which was switched to p.o. and then she was discharged on a tapering dose. Pulmonology was on board during her stay at the hospital. She
was also using nebulizer 4 times every day during her hospital stay, she uses usually uses once at home. She reported significant improvement with use of steroids and nebulizers. She was advised to continue her home medication upon discharge.
Important imaging findings : CXR: Peripheral increased reticulonodular markings, with pattern most compatible with interstitial fibrosis, usual interstitial pneumonitis pattern.
No radiographic evidence for superimposed pneumonia or pulmonary edema.
Progression of changes of interstitial fibrosis when compared to chest radiograph of January 16, 2023
Procedure findings : ECHO: Normal biventricular size and systolic function without regional wall motion
abnormality. Estimated LVEF 60-65%.
Stage III diastolic dysfunction suggestive of restrictive filling pattern and
increased filling pressures.
Mild/moderate mitral regurgitation.
Moderate aortic stenosis. Peak/mean gradients are 52/24mmHg. The valve area by
continuity equation is 0.9cm sq, using a LVOT of 2.0 cm. SUSANA by planimetry is
1.0cm2. SVI 52 (normal).
Mild/moderate tricuspid regurgitation. Severely elevated PASP. Estimated
pulmonary artery pressure of 59 mmHg. Assuming a right atrial pressure of 3
mmHg.
Discharge Plan
-
Patient Disposition: Home with Home Care
Discharge Diagnosis/Procedures: Acute hypoxic respiratory insufficiency due to interstitial lung disease exacerbation.
Condition: Good
Diet: 2 Gram Sodium and Restrict fluids to 48 oz
Activity: As tolerated
Driving Restrictions: As prior to admission
Blood Work: BMP 2-3 days. HBA1C with next doctor visit.
Other Services: VN
Specialty Instructions: Weigh Daily- Call MD for wt gain/loss 3 lbs overnight/5 lbs in 1 week
Activity Restrictions/Additional Instructions:
Avoid concentrated sugars, desserts and juices until you complete steroids. Sugars can run high because of steroids. Use CPAP at home. 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 Please call tomorrow to schedule appointment.
Referrals:
Nelda Pacheco DO [Family Provider] - in less than 1 week
Jayy Adame MD [Active] - in one to two weeks
(Wendi or MAINTENANCE DATA ANALYST in 3 weeks
post COPD flare, being tapered down to 10mg pred)
Nae Craig MD [Active] -
Additional Discharge Medication Instructions: Prednisone 10 mg, 4 tablets daily for 5 days, 3 tablets daily for next 5 days, then 2 tablets daily for the next 5 days, 1 tablet afterwards until see the family doctor/hospital supervisor
Prescriptions:
New
prednisone 10 mg tablet
10 mg PO DIRECTED Qty: 60 0RF
Rx Instructions:
4 tab for 5 days,3 for next 5 days,2 for next 5, 1 tab daily after that
Continued
dofetilide 125 mcg Capsule
125 mcg PO Q12H Qty: 60 0RF
furosemide 20 mg Tablet
20 mg PO DAILY Qty: 30 0RF
Eliquis 2.5 mg Tablet
2.5 mg PO BID Qty: 60 0RF
cholecalciferol (vitamin D3) 50 mcg (2,000 unit) Tablet
50 mcg PO DAILY Qty: 30 0RF
clopidogrel 75 mg Tablet
75 mg PO DAILY Qty: 30 0RF
ferrous sulfate [FeroSul] 325 mg (65 mg iron) Tablet
325 mg PO DAILY Qty: 30 0RF
metoprolol succinate 25 mg Tablet Extended Release 24 Hr
25 mg PO DAILY Qty: 30 0RF
potassium chloride 20 mEq Tablet,Er Particles/Crystals
20 meq PO DAILY Qty: 30 0RF
pantoprazole 40 mg Tablet,Delayed Release (Dr/Ec)
40 mg PO DAILY Qty: 30 0RF
sodium chloride 1,000 mg Tablet,Soluble
1,000 mg PO DAILY Qty: 30 0RF
ascorbic acid (vitamin C) [Vitamin C] 500 mg Tablet
500 mg PO DAILY Qty: 30 0RF
sennosides [Vegetable Laxative] 8.6 mg Tablet
8.6 mg PO Q48H@2200
acetaminophen 500 mg Tablet
500 mg PO Q6HPRN PRN (Reason: mild pain/fever)
midodrine 5 mg tablet
5 mg PO Q8HPRN PRN (Reason: BP < 120)
nitroglycerin 0.4 mg tablet, sublingual
0.4 mg sublingual [id number] PRN (Reason: chest pain)
calcium carbonate-vitamin D3 [Oyster Shell Calcium-Vit D3] 500 mg-5 mcg (200 unit) tablet
1 tab PO DAILY
Discharge Orders:
Discharge Patient (As Directed); Ordered 09/18/23
Ordered By: Felipe Roy
Discharge Date and Time
Discharge Date/Time: 09/18/23 19:18
Print Language: CROATIAN

Documented by User: Andie Jean MD 09/19/23 07:18
Discharge Summary
Discharge Data
Date of Admission: 09/14/23
Date of Discharge: 09/19/23
Hospital Course
Discharging Physician : Felipe Roy MD ; Andie Jean MD
Disposition : Home with VN
Primary care physician : Nelda Graf
Principal Discharge diagnosis : Acute hypoxic respiratory insufficiency on chronic respiratory failure
Chronic Discharge diagnosis : History of interstitial lung disease, chronic bronchiectasis, chronic heart failure, coronary disease with multiple stents, paroxysmal A-fib, moderate aortic stenosis, hyperlipidemia, sleep apnea, diverticulosis, GERD,
arthritis, panic disorder, cluster headache, vitamin D deficiency,
Hospital Course : 83-year-old female with history of interstitial lung disease, chronic respiratory close presented to the ED with shortness of breath, tachycardia. She uses 2 L nasal cannula oxygen at baseline. She was provided oxygen support and
at the time of discharge her oxygen saturation was 100% at 1.5 L. She was also given IV steroids initially which was switched to p.o. and then she was discharged on a tapering dose. Pulmonology was on board during her stay at the hospital. She
was also using nebulizer 4 times every day during her hospital stay, she uses usually uses once at home. She reported significant improvement with use of steroids and nebulizers. She was advised to continue her home medication upon discharge.Blood
sugars was slightly up from Steroids. HbA1 C and repeat BMP recommended as outpatient.
Important imaging findings : CXR: Peripheral increased reticulonodular markings, with pattern most compatible with interstitial fibrosis, usual interstitial pneumonitis pattern.
No radiographic evidence for superimposed pneumonia or pulmonary edema.
Progression of changes of interstitial fibrosis when compared to chest radiograph of January 16, 2023
Procedure findings : ECHO: Normal biventricular size and systolic function without regional wall motion
abnormality. Estimated LVEF 60-65%.
Stage III diastolic dysfunction suggestive of restrictive filling pattern and
increased filling pressures.
Mild/moderate mitral regurgitation.
Moderate aortic stenosis. Peak/mean gradients are 52/24mmHg. The valve area by
continuity equation is 0.9cm sq, using a LVOT of 2.0 cm. SUSANA by planimetry is
1.0cm2. SVI 52 (normal).
Mild/moderate tricuspid regurgitation. Severely elevated PASP. Estimated
pulmonary artery pressure of 59 mmHg. Assuming a right atrial pressure of 3
mmHg.
Discharge Plan
-
Patient Disposition: Home with Home Care
Discharge Diagnosis/Procedures: Acute hypoxic respiratory insufficiency due to interstitial lung disease exacerbation.
Condition: Good
Diet: 2 Gram Sodium and Restrict fluids to 48 oz
Activity: As tolerated
Driving Restrictions: As prior to admission
Blood Work: BMP 2-3 days. HBA1C with next doctor visit.
Other Services: [facility]
Specialty Instructions: Weigh Daily- Call MD for wt gain/loss 3 lbs overnight/5 lbs in 1 week
Activity Restrictions/Additional Instructions:
Avoid concentrated sugars, desserts and juices until you complete steroids. Sugars can run high because of steroids. Use CPAP at home. 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 Please call tomorrow to schedule appointment.
Referrals:
Nelda Pacheco DO [Family Provider] - in less than 1 week
Jayy Adame MD [Active] - in one to two weeks
(Wendi or MAINTENANCE DATA ANALYST in 3 weeks
post COPD flare, being tapered down to 10mg pred)
Nae Craig MD [Active] -
Additional Discharge Medication Instructions: Prednisone 10 mg, 4 tablets daily for 5 days, 3 tablets daily for next 5 days, then 2 tablets daily for the next 5 days, 1 tablet afterwards until see the family doctor/hospital supervisor
Prescriptions:
New
prednisone 10 mg tablet
10 mg PO DIRECTED Qty: 60 0RF
Rx Instructions:
4 tab for 5 days,3 for next 5 days,2 for next 5, 1 tab daily after that
Continued
dofetilide 125 mcg Capsule
125 mcg PO Q12H Qty: 60 0RF
furosemide 20 mg Tablet
20 mg PO DAILY Qty: 30 0RF
Eliquis 2.5 mg Tablet
2.5 mg PO BID Qty: 60 0RF
cholecalciferol (vitamin D3) 50 mcg (2,000 unit) Tablet
50 mcg PO DAILY Qty: 30 0RF
clopidogrel 75 mg Tablet
75 mg PO DAILY Qty: 30 0RF
ferrous sulfate [FeroSul] 325 mg (65 mg iron) Tablet
325 mg PO DAILY Qty: 30 0RF
metoprolol succinate 25 mg Tablet Extended Release 24 Hr
25 mg PO DAILY Qty: 30 0RF
potassium chloride 20 mEq Tablet,Er Particles/Crystals
20 meq PO DAILY Qty: 30 0RF
pantoprazole 40 mg Tablet,Delayed Release (Dr/Ec)
40 mg PO DAILY Qty: 30 0RF
sodium chloride 1,000 mg Tablet,Soluble
1,000 mg PO DAILY Qty: 30 0RF
ascorbic acid (vitamin C) [Vitamin C] 500 mg Tablet
500 mg PO DAILY Qty: 30 0RF
sennosides [Vegetable Laxative] 8.6 mg Tablet
8.6 mg PO Q48H@2200
acetaminophen 500 mg Tablet
500 mg PO Q6HPRN PRN (Reason: mild pain/fever)
midodrine 5 mg tablet
5 mg PO Q8HPRN PRN (Reason: BP < 120)
nitroglycerin 0.4 mg tablet, sublingual
0.4 mg sublingual [id number] PRN (Reason: chest pain)
calcium carbonate-vitamin D3 [Oyster Shell Calcium-Vit D3] 500 mg-5 mcg (200 unit) tablet
1 tab PO DAILY
Discharge Orders:
Discharge Patient (As Directed); Ordered 09/18/23
Ordered By: Felipe Roy
Discharge Date and Time
Discharge Date/Time: 09/18/23 19:18
Print Language: CROATIAN
--- NOTE | 2023-09-18 14:11 | CM ---
Reviewed the chart note and IMM with patient and her daughter via telephone. Patient to be discharged to home with VN services. Patient has had [facility] services in past and requested to have again. Referral sent. CM continues to be available
to patient/family and is monitoring medical plan for needs at discharge.
Plan: Discharge to home with [facility]N serves.
--- NOTE | 2023-09-18 15:05 | W.PN.PUL3 ---
Today's Communication / Plan
-
Continue with prednisone wean as below
Should be seen in the office in about 3 weeks, maintain on 10 mg at that time
GERD therapy
Recommend compliance with CPAP at home
Echocardiogram not ordered. This can be followed up as an outpatient as clinically indicated
Disposition efforts noted
We will sign off. Please call with questions
Assessment
-
83-year-old female with a past medical history of ILD, carotid artery stenosis, CAD s/p stents, KILEY on auto CPAP, fibromyalgia, GERD, mixed hyperlipidemia, chronic respiratory failure on home oxygen at 2 L/min, chronic HFpEF and aortic stenosis who
presents from home with SOB. Initial vitals showed hypertension to 151/50, SpO2 100% on 2 L/min, respiratory rate 25, pulse rate 72 and she was afebrile to 98.2 �F. Labs showed proBNP of 787, urinalysis negative for UTI, and CXR showed increased
reticulonodular markings with no evidence of superimposed pneumonia or pulmonary edema. She was given an albuterol nebulizer and admitted to the hospitalist service. She denies fever, cough, sputum production. IV steroids were started, speech
evaluation was ordered to rule out aspiration, and pulmonary service now consulted for additional management/recommendations.
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
oxygen, A-fib on Eliquis, CHF/chronic HFpEF, iron deficiency anemia, aortic stenosis
Impression:
#Dyspnea likely due to acute ILD exacerbation vs acute decompensated heart failure
#ILD - mosaic attenuation with reticular opacities, traction bronchiectasis and ground glass opacities - not UIP pattern; looks more like NSIP; there was some concern previously with amiodarone induced pneumonitis, however she was only on it for 3
months and it was stopped in 02/2023; in CT chest from 12/2021 there was only patchy GGO with reticular opacities and it was not nearly as widespread as her ILD changes are currently; after review of her may need chest imaging with CXR + CT chest,
and A/P studies, seems as if her interstitial changes started to worsen sometime between March 2022 and July 2022; back in 2019 she had subpleural nodular opacities and reticular opacities with mosaic attenuation
#Chronic anemia
#Restrictive lung disease � last spirometry from 09/06/2023 showed a FVC of 1.08 L / 57% predicted
#Valvular heart disease moderate aortic stenosis + mild�moderate MR
#Chronic hypotension on midodrine
#KILEY on auto CPAP
#Paroxysmal A-fib on Eliquis
#Chronic HFpEF
#CAD with multiple PCI
Plan/recommendations
Continue with IV steroids and wean as tolerated � currently on prednisone 40 mg
Reviewed plans for taper
Patient apparently had prolonged taper in according to daughter
40 mg for 5 days, 30 mg for 5 days, 20 mg for 5 days, then maintain 10 mg until seen in the office
Follow-up information left in chart
Maintain SpO2 >90-94% with supplemental O2 as needed
Can likely wean to RA at rest
Incentive spirometer encouraged
She does have a very loud murmur in the RUSB with known valvular heart disease and stage II diastolic dysfunction
Echocardiogram has not been completed. This can be done as outpatient depending on clinical symptoms
Murmur on exam noted
Cardiac diet in the interim with fluid and sodium restriction
Daily weights
Resumed on home lasix dose
Hold off on Abx, as patient is nontoxic-appearing, afebrile and no leukocytosis on blood work
She has a CPAP machine at home which is not using consistently. Compliance was recommended
prn nebulized bronchodilators
DVT ppx: Eliquis
Pulmonary service will continue to follow along. We will arrange for outpatient follow-up upon discharge with Dr. Adame.
Information left in chart
Reviewed above plan at length with patient and daughter Estuardo by phone
Also reviewed plan with primary service
We will sign off. Please call with questions
Data:
CXR 09-14-2023: Peripheral increased reticulonodular markings, with pattern most compatible with interstitial fibrosis, usual interstitial pneumonitis pattern. No radiographic evidence for superimposed pneumonia or pulmonary edema. Progression of
changes of interstitial fibrosis when compared to chest radiograph of January 16, 2023.
Outpatient [facility] data:
RADIOGRAPHIC STUDIES:
�������CT chest 08/14/19-moderate interstitial fibrosis with some bronchiectasis and 1 new nodule, other nodule stable compared to 2012-likely will need ILD. Serology, repeat CT chest in 6 months in follow-up of pulmonary nodules 3 mm-RUL, 5 mm RLL,
4 mm RLL and 3 mm LLL
�������CT sinuses 09/18/20-No evidence for acute sinusitis or chronic paranasal sinus mucosal disease. .
�������CT chest 12/21/21-pulmonary nodules are stable over 2 year interval consistent with benign etiology, bilateral peripheral prominent reticular markings are increased from prior study. These are compatible with possible interstitial lung
disease-patient notified-told to keep apoinntment 12/28/21.
CARDIAC STUDIES:
������ Echocardiogram 02/22/19-EF 60-65%, mild mitral regurgitation, mild aortic stenosis, when compared to 08/2012 mild aortic stenosis is now present.
�������Cardiac catheterization 07/06/20-EF 68%, single vessel LAD disease, previously placed stents are widely patent, successful stenting distal LAD and successful stenting mid LAD.
PFT:
������ Spirometry 11/23/16-normal.
�������PFT 08/24/19-FEV1 1.49 L-87%, FVC 1.82 L-78%, TLC 71%, RV 71%, DLCO 53%.
�������PFT 03/30/20--FEV1 1.43 L-89%, FVC 1.74 L-80%, TLC 72%, RV 68%, DLCO 61%. Mild restriction and moderate reduction in diffusing capacity..
�������PFT 10/05/20-FEV1 1.54 L-97%, FFVC 1.84 L-86%, DLCO 55%. Mild restriction and moderate reduction in diffusing capacity.
�������PFT 06/28/21-FEV1 1.63 L-105%, FVC 2.03 L-96%, TLC 70%, RV 58, DLCO 59%. Mild restriction and moderate reduction in diffusing capacity.
�������Spirometry 12/28/21-FEV1 1.45 L-93%, FVC 1.8 L-85%, no significant BD response. Mild restriction.
POLYSOMNOGRAM:
������ Older PSG-AHI-8, desaturation qasim 91%, CPAP 13 cm ideal-reduced to 9 cm for intolerance-aerophagia.
�������PSG 01/14/19-AHI-1.7, REM-AHI 11.4, desaturation qasim 85%, sleep efficiency 76%, PLM index 28.5.
6 MWT:
������ 6 minute walk test 08/28/19-ambulated 540 feet with desaturation qasim 94% maximum heart rate 88.
�������6 minute walk test 03/30/20-Ambulated 900 feet with desaturation qasim of 97%. The maximum heart rate of 87. No supplemental oxygen required.
�������6 minute walk test 10/05/20-Ambulated 1050 feet with desaturation qasim of 97% of maximum heart rate of 87. No supplemental oxygen required.
�������6 minute walk test 06/28/21-Ambulated 900 feet, desaturation qasim 97% of maximum heart rate of 85. Maximum dyspnea scale score was 2.0. No supplemental oxygen needed.
LABS:
������ Eosinophils 05/03/19-700
�������Aspergillus antibody 08/30/19-none detected
�������IgE 08/30/19--73 ILD serology 08/30/19-normal
�������ALETHA 08/30/19-23
�������Alpha-1 antitrypsin level and phenotype 08/30/19--129, PiMM
�������Hypersensitivity pneumonitis screen 08/30/19-none detected
�������ILD serology 08/30/19-normal
�������IgG subsets 08/30/19-normal.
Total time spent today was 35 minutes for this encounter. Time includes reviewing laboratory test/imaging results, reviewing pertinent medical records, obtaining and reviewing medical history, performing an appropriate exam, ordering medications,
tests and procedures. Time also includes documentation of this encounter, coordinating patient care and communicating with other healthcare professionals. Total time does not include separately billed tests performed on this date of service.
Subjective Data
-
Date of Service:
Date of Service: September 18, 2023
Chief Complaint: Pulmonary Follow Up
Subjective:
Patient is feeling improved. She tolerated physical therapy today, ambulate with her walker around 1.5 L, saturation 95%. She denies exertional chest pain. Otherwise review of systems negative, she is without complaints. She is concerned about
taking a shower at home
Objective Data
Data Reviewed
Vital Signs / I&O / Oxygen:
Vital Signs
Temp Pulse Resp BP Pulse Ox
97.7 F 64 16 143/55 100
09/18/23 11:05 09/18/23 13:13 09/18/23 12:10 09/18/23 13:13 09/18/23 12:10
Intake and Output
09/17/23 09/18/23 09/19/23
06:59 06:59 06:59
Intake Total 1899 / 1899
Balance 0 / 0 1859 / 1859
SaO2 100
Nasal Cannula flow liters per 1.5
minute
Physical Exam
General: Comfortable and Other (NAD)
HEENT: Normocephalic, Anicteric and Moist Mucous Membranes
Cardiovascular: S1-S2 and Regular Rhythm
Respiratory: Wheeze (n), Crackles (Few right greater than left), Non-Labored Respirations and Stridor (n)
GI: Soft, Non Distended and Non Tender
Neurology: Awake, Alert and No Motor Deficits
Skin: Good Color, Cyanosis (n) and Jaundice
Labs/Micro/Reports
Lab Data
09/15/23 03:21
--- NOTE | 2023-09-18 15:27 | PTOTSP ---
ST Follow-Up
Pt presents with functional oropharyngeal swallow. No s/s penetration/aspiration.
Recommendations:
- Continue with regular solids, thin liquids, meds as tolerated.
- General aspiration precautions.
- No skilled dysphagia services warranted. [employer] to sign off.
[2023-09-18 15:36] LABS: Blood Urea Nitrogen 43 mg/dl (7-17); Calcium 9.9 mg/dl (8.4-10.2); Carbon Dioxide 25 mmol/L (22-30); Chloride 102 mmol/L (98-107); Estimated Creatinine Clearance 34 ml/min; Glucose 207 mg/dl (70-99); Sodium 137 mmol/L (135-145); eGFR > 60.00
--- NOTE | 2023-09-19 08:12 | CM ---
[facility] was unable to accept the patient. Referral sent to [facility] and they have accepted the patient for service.
--- NOTE | 2023-09-20 13:47 | CM ---
Received call from the patient's daughter. [facility] has not reached out to them as of this date. Call placed to Beulah with [facility] they have received and accepted patient, but have not put her on their scheduled due to volume of referrals. They will
reach out to her.
== END 2023-09-18 19:18 | disposition home health service (06) | DRG 197 ==
LOC: 2 NORTH 20:16
PROVIDERS: Emergency Medicine; Nurse Practitioner; Student in an Organized Health Care Education/Training Program; ADMITTING PHYSICIAN Hospitalist; CONSULT PHYSICIAN Internal Medicine; EMERGENCY PHYSICIAN Student in an Organized Health Care Education/Training Program; FAMILY PHYSICIAN Family Medicine
DX: J84.89 Other specified interstitial pulmonary diseases (principal); I50.32 Chronic diastolic (congestive) heart failure; J96.11 Chronic respiratory failure with hypoxia; J47.9 Bronchiectasis, uncomplicated; I11.0 Hypertensive heart disease with heart failure; I35.0 Nonrheumatic aortic (valve) stenosis; I25.10 Atherosclerotic heart disease of native coronary artery without angina pectoris; G47.33 Obstructive sleep apnea (adult) (pediatric); I48.0 Paroxysmal atrial fibrillation; Z79.01 Long term (current) use of anticoagulants; Z95.5 Presence of coronary angioplasty implant and graft
CPT/HCPCS: 71046; 80048; 80053; 81003; 82962; 83735; 83880; 84484; 85025; 85027; 87811; 92526; 92610; 93005; 93306; 94640; 97162; 97166; 97530; 97535; 99285

== ENCOUNTER → 2023-09-26 13:32 | Outpatient (REF) | payer MEDICARE, OTHER, SELFPAY ==
[2023-09-26 15:40] LABS: % Basophils 0.2 % (0-2); % Eosinophils 0.3 % (0-6); % Immature Granulocytes 1.2 % (0-0.5); % Lymphocytes 18.4 % (20.5-51.1); % Monocytes 12.2 % (1.7-9.3); % Neutrophils 67.7 % (42.2-75.2); Absolute Eosinophils 0.1 10^3/uL (0-0.7); Absolute Immature Granulocytes 0.2 10^3/uL (0-0.05); Absolute Lymphocytes 3.3 10^3/uL (1.2-3.4); Absolute Monocytes 2.2 10^3/uL (0.1-0.6); Absolute Neutrophils 12.2 10^3/uL (1.4-6.5); Hemoglobin 13.3 g/dL (12.0-16.0); Mean Corp Hgb Conc. 32.4 g/dL (33.0-37.0); Mean Corpuscular Hgb 31.1 pg (27.0-31.0); Mean Corpuscular Volume 95.8 fL (81.0-99.0); Mean Platelet Volume 12.1 fL (7.4-10.4); Nucleated Red Blood Cells % 0 %; Platelet Count 302 10^3/uL (130-400); Red Blood Cell Count 4.28 10^6/uL (4.20-5.40); Red Cell Dist. Width 14.3 % (11.5-14.5)
[2023-09-26 15:55] LABS: Blood Urea Nitrogen 42 mg/dl (7-17); Carbon Dioxide 36 mmol/L (22-30); Chloride 98 mmol/L (98-107); Glucose 88 mg/dl (70-99); Potassium 4.1 mmol/L (3.5-5.1); Sodium 139 mmol/L (135-145); eGFR 49.24
[2023-09-26 15:59] LABS: NT-proBNP 1330 pg/ml
== END ==
LOC: HWLAB 13:32
PROVIDERS: ATTENDING PHYSICIAN Nurse Practitioner Family; FAMILY PHYSICIAN Family Medicine
DX: Z09 Encounter for follow-up examination after completed treatment for conditions other than malignant neoplasm (principal); D50.9 Iron deficiency anemia, unspecified
CPT/HCPCS: 36415; 80048; 83880; 85025

== ENCOUNTER → 2023-12-19 09:15 | Outpatient (REF) | payer MEDICARE, OTHER, SELFPAY | LOC: DHSLP 09:15 | PROVIDERS: ATTENDING PHYSICIAN Internal Medicine Critical Care Medicine; FAMILY PHYSICIAN Family Medicine | DX: G47.33 Obstructive sleep apnea (adult) (pediatric) (principal); G47.61 Periodic limb movement disorder; R09.02 Hypoxemia | CPT/HCPCS: 95811 ==

== ENCOUNTER → 2024-02-05 10:44 | Outpatient (REF) | payer MEDICARE, OTHER, SELFPAY | LOC: CLAB 10:44 | PROVIDERS: ATTENDING PHYSICIAN Family Medicine | DX: N90.7 Vulvar cyst (principal) | CPT/HCPCS: 87070; 87147; 87205 ==

== ENCOUNTER → 2024-03-19 12:52 | Outpatient (REF) | payer MEDICARE, OTHER, SELFPAY | LOC: HWRCS 12:52 | PROVIDERS: ATTENDING PHYSICIAN Internal Medicine Cardiovascular Disease; FAMILY PHYSICIAN Family Medicine | DX: I50.32 Chronic diastolic (congestive) heart failure (principal); I35.0 Nonrheumatic aortic (valve) stenosis | CPT/HCPCS: 93306 ==

== ENCOUNTER → 2024-04-24 12:49 | Outpatient (REF) | payer MEDICARE, OTHER, SELFPAY | LOC: HWRAD 12:49 | PROVIDERS: ATTENDING PHYSICIAN Internal Medicine Cardiovascular Disease; FAMILY PHYSICIAN Family Medicine | DX: I65.23 Occlusion and stenosis of bilateral carotid arteries (principal) | CPT/HCPCS: 93880 ==

== ENCOUNTER → 2024-07-08 12:04 | Outpatient (REF) | payer MEDICARE, OTHER, SELFPAY | LOC: CLAB 12:04 | PROVIDERS: ATTENDING PHYSICIAN Nurse Practitioner Adult Health | DX: R39.9 Unspecified symptoms and signs involving the genitourinary system (principal) | CPT/HCPCS: 87086; 87088; 87186 ==

== ENCOUNTER → 2024-08-05 15:32 | Outpatient (REF) | payer MEDICARE, OTHER, SELFPAY | LOC: RAD 15:32 | PROVIDERS: ATTENDING PHYSICIAN Internal Medicine Critical Care Medicine | DX: R06.02 Shortness of breath (principal) | CPT/HCPCS: 71046 ==

== ENCOUNTER → 2024-09-10 09:41 | Outpatient (REF) | payer MEDICARE, OTHER, SELFPAY ==
[2024-09-10 12:03] LABS: Hematocrit 40.2 % (37.0-47.0); Hemoglobin 12.8 g/dL (12.0-16.0); Mean Corp Hgb Conc. 31.8 g/dL (33.0-37.0); Mean Corpuscular Volume 99.8 fL (81.0-99.0); Nucleated Red Blood Cells % 0 %; Platelet Count 276 10^3/uL (130-400); Red Cell Dist. Width 13.3 % (11.5-14.5)
[2024-09-10 12:25] LABS: ALT (SGPT) 12 U/L (0-35); AST (SGOT) 19 U/L (14-36); Albumin 4.2 g/dl (3.5-5.0); Alkaline Phosphatase 116 U/L (38-126); Blood Urea Nitrogen 26 mg/dl (7-17); Calcium 10.1 mg/dl (8.4-10.2); Carbon Dioxide 28 mmol/L (22-30); Chloride 105 mmol/L (98-107); Glucose 89 mg/dl (70-99); HDL Cholesterol 52 mg/dl; LDL Cholesterol, Calculated 187 mg/dl; Potassium 4.6 mmol/L (3.5-5.1); Sodium 140 mmol/L (135-145); Total Protein 6.8 g/dl (6.3-8.2); Very Low Density Lipoprotein 36 mg/dl (0-30); eGFR > 60.00
[2024-09-10 13:30] LABS: Glycohemoglobin (HgbA1c) 5.4 % (4.0-5.6)
== END ==
LOC: HWLAB 09:41
PROVIDERS: ATTENDING PHYSICIAN Nurse Practitioner Adult Health; FAMILY PHYSICIAN Family Medicine
DX: R39.9 Unspecified symptoms and signs involving the genitourinary system (principal); R73.01 Impaired fasting glucose; I48.0 Paroxysmal atrial fibrillation; K21.9 Gastro-esophageal reflux disease without esophagitis; I50.32 Chronic diastolic (congestive) heart failure; I35.0 Nonrheumatic aortic (valve) stenosis
CPT/HCPCS: 36415; 80053; 80061; 83036; 83880; 85025; 87086

== ENCOUNTER → 2024-11-29 13:02 | Outpatient (REF) | payer MEDICARE, OTHER, SELFPAY | LOC: RAD 13:02 | PROVIDERS: ATTENDING PHYSICIAN Surgery Vascular Surgery; FAMILY PHYSICIAN Family Medicine | DX: I65.23 Occlusion and stenosis of bilateral carotid arteries (principal) | CPT/HCPCS: 93880 ==

== ENCOUNTER → 2025-01-07 11:16 | Outpatient (REF) | payer MEDICARE, OTHER, SELFPAY | LOC: HWRCS 11:16 | PROVIDERS: ATTENDING PHYSICIAN Internal Medicine Cardiovascular Disease; FAMILY PHYSICIAN Family Medicine | DX: I50.32 Chronic diastolic (congestive) heart failure (principal); I35.0 Nonrheumatic aortic (valve) stenosis; R06.09 Other forms of dyspnea | CPT/HCPCS: 93306 ==

== ENCOUNTER → 2025-02-28 11:15 | Outpatient (REF) | payer MEDICARE, OTHER, SELFPAY ==
[2025-02-28 15:11] LABS: Hematocrit 39.2 % (37.0-47.0); Hemoglobin 12.9 g/dL (12.0-16.0); Mean Corp Hgb Conc. 32.9 g/dL (33.0-37.0); Mean Corpuscular Volume 96.6 fL (81.0-99.0); Nucleated Red Blood Cells % 0 %; Platelet Count 243 10^3/uL (130-400); Red Cell Dist. Width 13.0 % (11.5-14.5)
[2025-02-28 15:14] LABS: Urine Character Slightly Cloudy (Clear)
[2025-02-28 15:22] LABS: Urine Squamous Cell 16-20 /LPF (Few)
[2025-02-28 15:23] LABS: Urine Red Blood Cell >100 /HPF (0-2)
[2025-02-28 15:28] LABS: ALT (SGPT) 14 U/L (0-35); AST (SGOT) 22 U/L (14-36); Albumin 4.2 g/dl (3.5-5.0); Alkaline Phosphatase 135 U/L (38-126); Blood Urea Nitrogen 31 mg/dl (7-17); Calcium 9.9 mg/dl (8.4-10.2); Carbon Dioxide 32 mmol/L (22-30); Chloride 100 mmol/L (98-107); Glucose 79 mg/dl (70-99); Iron 119 ug/dl (37-170); Potassium 4.1 mmol/L (3.5-5.1); Sodium 138 mmol/L (135-145); Total Protein 7.1 g/dl (6.3-8.2); eGFR 54.87
[2025-02-28 15:37] LABS: Total Iron Binding Capacity 207 ug/dl (265-497)
== END ==
LOC: HWLAB 11:15
PROVIDERS: ATTENDING PHYSICIAN Internal Medicine Geriatric Medicine
DX: R31.9 Hematuria, unspecified (principal); M79.7 Fibromyalgia; K21.9 Gastro-esophageal reflux disease without esophagitis; I35.0 Nonrheumatic aortic (valve) stenosis; I10 Essential (primary) hypertension; I25.10 Atherosclerotic heart disease of native coronary artery without angina pectoris; I48.0 Paroxysmal atrial fibrillation; I50.32 Chronic diastolic (congestive) heart failure; Z13.31 Encounter for screening for depression
CPT/HCPCS: 36415; 80053; 81003; 81015; 83540; 83550; 85025; 87086